=== PATIENT | male | born 1960 | race Caucasian/White ===

== ENCOUNTER 2020-07-12 10:49 | Outpatient (REF) | payer OTHER, SELFPAY | END 2020-07-12 10:50 | disposition home or self-care (01) | LOC: HO.LAB 10:49 | PROVIDERS: PCP Internal Medicine; Visit Provider Internal Medicine | DX: Z13.89 Encounter for screening for other disorder (principal) ==

== ENCOUNTER 2020-07-26 10:37 | Outpatient (REF) | payer OTHER, SELFPAY ==
[2020-07-26 11:38] LABS: MANUAL DIFF FLAG NO
[2020-07-26 11:49] LABS: Basophils Absolute Auto 0.1 X10*3/uL (0.0-0.2); Basophils Percent Auto 1.2 % (0-2); Eosinophils Absolute Auto 0.4 X10*3/uL (0.0-0.4); Eosinophils Percent Auto 7.3 % (0-4); Hematocrit 44.8 % (42-52); Imm Gran Abs Auto 0.01 X10*3/uL (0.00-0.03); Imm Gran Pct Auto 0.2 % (0.0-0.4); Lymphocytes Absolute Auto 1.7 X10*3/uL (1.2-4.9); Lymphocytes Percent Auto 29.7 % (20-40); Mean Corpuscular HGB Conc 33.5 g/dl (31.0-36.0); Mean Corpuscular Hemoglobin 30.3 pg (27.0-33.0); Mean Corpuscular Volume 90.5 fL (80-98); Mean Platelet Volume 10.4 fL (9.4-12.4); Monocytes Absolute Auto 0.5 X10*3/uL (0.1-1.2); Monocytes Percent Auto 8.5 % (2-11); Neutrophils Absolute Auto 3.1 X10*3/uL (2.0-8.3); Neutrophils Percent Auto 53.1 % (45-73); Platelet Count 206 X10*3/uL (160-400); Red Blood Count 4.95 X10*6/uL (4.60-5.80); Red Cell Distribution Width 12.4 % (11.0-16.0); White Blood Count 5.8 X10*3/uL (4.8-10.8)
[2020-07-26 11:53] LABS: Glucose Urine UA NEG (NEG); Leukocyte Esterase Urine NEG (NEG); Nitrite Urine NEG (NEG); PH 7.5 (5.0-8.0); Urine Blood NEG (NEG); Urine Ketones NEG (NEG); Urine Protein TRACE MG/DL (NEG-TRACE)
[2020-07-26 11:54] LABS: Appearance Urine CLEAR; Color Urine YELLOW
[2020-07-26 12:24] LABS: Alanine Aminotransferase 19 U/L (0-40); Albumin Level 4.3 g/dL (3.5-5.0); Alkaline Phosphatase 51 U/L (39-117); Anion Gap 12 (12-20); Aspartate Amino Transferase 17 U/L (5-37); Bilirubin Total 0.8 mg/dL (0.0-1.0); Blood Urea Nitrogen 20 mg/dL (9-16); Calcium 9.1 mg/dL (8.4-10.2); Carbon Dioxide 27 mmol/L (22-29); Chloride 106 mmol/L (96-108); Cholesterol 156 mg/dL; Estimated Glomerular Filt Rate > 60; Glucose Fasting 90 mg/dL (60-99); HDL Cholesterol 39 mg/dL; LDL Cholesterol Calculated 88 mg/dl; Potassium 4.5 mmol/L (3.3-5.1); Sodium 140 mmol/L (135-145); Total Protein 6.5 g/dL (6.5-8.0); Triglycerides 146 mg/dL
[2020-07-26 12:34] LABS: Prostate Specific Antigen Scr 0.97 ng/mL (<0.05-4.0); TSH reflex Free T4 0.99 uIU/mL (0.32-4.0); Vitamin D 25-OH Total 39.7 ng/mL (>30)
== END 2020-07-26 10:38 | disposition home or self-care (01) ==
LOC: HO.LAB 10:37
PROVIDERS: Internal Medicine; PCP Internal Medicine; Visit Provider Internal Medicine
DX: Z00.00 Encounter for general adult medical examination without abnormal findings (principal); K21.9 Gastro-esophageal reflux disease without esophagitis; D72.19 Other eosinophilia; E78.00 Pure hypercholesterolemia, unspecified; R09.89 Other specified symptoms and signs involving the circulatory and respiratory systems; Z20.822 Contact with and (suspected) exposure to COVID-19; E66.9 Obesity, unspecified; J30.9 Allergic rhinitis, unspecified; E55.9 Vitamin D deficiency, unspecified; Z12.5 Encounter for screening for malignant neoplasm of prostate
CPT/HCPCS: 36415; 80053; 80061; 81003; 82306; 84153; 84443; 85025; U0003; U0005

== ENCOUNTER 2020-08-09 12:56 | Outpatient (REF) | payer OTHER, SELFPAY | END 2020-08-09 12:57 | disposition home or self-care (01) | LOC: HO.LAB 12:56 | PROVIDERS: PCP Internal Medicine; Visit Provider Internal Medicine | DX: Z20.822 Contact with and (suspected) exposure to COVID-19 (principal) | CPT/HCPCS: 36415; C9803; U0003; U0005 ==

== ENCOUNTER 2020-11-11 09:48 | Outpatient (REF) | payer OTHER, SELFPAY ==
[2020-11-11 10:10] LABS: MANUAL DIFF FLAG NO
[2020-11-11 10:19] LABS: Basophils Absolute Auto 0.1 X10*3/uL (0.0-0.2); Basophils Percent Auto 1.5 % (0-2); Eosinophils Absolute Auto 0.7 X10*3/uL (0.0-0.4); Hematocrit 45.6 % (42-52); Imm Gran Abs Auto 0.01 X10*3/uL (0.00-0.03); Imm Gran Pct Auto 0.2 % (0.0-0.4); Lymphocytes Absolute Auto 1.3 X10*3/uL (1.2-4.9); Lymphocytes Percent Auto 19.4 % (20-40); Mean Corpuscular HGB Conc 32.9 g/dl (31.0-36.0); Mean Corpuscular Hemoglobin 30.2 pg (27.0-33.0); Mean Corpuscular Volume 91.8 fL (80-98); Mean Platelet Volume 10.3 fL (9.4-12.4); Monocytes Absolute Auto 0.5 X10*3/uL (0.1-1.2); Monocytes Percent Auto 7.6 % (2-11); Neutrophils Percent Auto 60.3 % (45-73); Platelet Count 213 X10*3/uL (160-400); Red Blood Count 4.97 X10*6/uL (4.60-5.80); Red Cell Distribution Width 12.5 % (11.0-16.0); White Blood Count 6.6 X10*3/uL (4.8-10.8)
[2020-11-11 10:42] LABS: Alanine Aminotransferase 30 U/L (0-40); Albumin Level 4.2 g/dL (3.5-5.0); Alkaline Phosphatase 59 U/L (39-117); Anion Gap 11 (12-20); Aspartate Amino Transferase 20 U/L (5-37); Bilirubin Total 0.5 mg/dL (0.0-1.0); Blood Urea Nitrogen 21 mg/dL (9-16); Calcium 9.5 mg/dL (8.4-10.2); Carbon Dioxide 29 mmol/L (22-29); Chloride 106 mmol/L (96-108); Cholesterol 159 mg/dL; Estimated Glomerular Filt Rate > 60; Glucose Fasting 111 mg/dL (60-99); HDL Cholesterol 39 mg/dL; LDL Cholesterol Calculated 98 mg/dl; Potassium 4.6 mmol/L (3.3-5.1); Sodium 141 mmol/L (135-145); Total Protein 6.7 g/dL (6.5-8.0); Triglycerides 110 mg/dL
[2020-11-11 11:03] LABS: TSH reflex Free T4 0.65 uIU/mL (0.32-4.0)
== END 2020-11-11 09:49 | disposition home or self-care (01) ==
LOC: HO.LAB 09:48
PROVIDERS: PCP Internal Medicine; Visit Provider Internal Medicine
DX: D72.19 Other eosinophilia (principal); K21.9 Gastro-esophageal reflux disease without esophagitis; E78.00 Pure hypercholesterolemia, unspecified
CPT/HCPCS: 36415; 80053; 80061; 84443; 85025

== ENCOUNTER 2021-03-11 11:03 | Outpatient (REF) | payer OTHER, SELFPAY ==
[2021-03-11 11:30] LABS: MANUAL DIFF FLAG NO
[2021-03-11 11:37] LABS: Basophils Absolute Auto 0.1 X10*3/uL (0.0-0.2); Eosinophils Absolute Auto 0.4 X10*3/uL (0.0-0.4); Eosinophils Percent Auto 5.7 % (0-4); Hematocrit 44.4 % (42-52); Hemoglobin 15.1 g/dl (14.0-18.0); Imm Gran Abs Auto 0.01 X10*3/uL (0.00-0.03); Imm Gran Pct Auto 0.2 % (0.0-0.4); Lymphocytes Absolute Auto 1.6 X10*3/uL (1.2-4.9); Mean Corpuscular Hemoglobin 30.4 pg (27.0-33.0); Mean Corpuscular Volume 89.5 fL (80-98); Mean Platelet Volume 9.8 fL (9.4-12.4); Monocytes Absolute Auto 0.7 X10*3/uL (0.1-1.2); Monocytes Percent Auto 10.3 % (2-11); Neutrophils Absolute Auto 3.6 X10*3/uL (2.0-8.3); Neutrophils Percent Auto 56.8 % (45-73); Platelet Count 184 X10*3/uL (160-400); Red Blood Count 4.96 X10*6/uL (4.60-5.80); Red Cell Distribution Width 12.2 % (11.0-16.0); White Blood Count 6.3 X10*3/uL (4.8-10.8)
[2021-03-11 13:06] LABS: Alanine Aminotransferase 23 U/L (0-40); Albumin Level 4.3 g/dL (3.5-5.0); Alkaline Phosphatase 59 U/L (39-117); Anion Gap 11 (12-20); Aspartate Amino Transferase 17 U/L (5-37); Bilirubin Total 1.1 mg/dL (0.0-1.0); Blood Urea Nitrogen 16 mg/dL (9-16); Calcium 9.7 mg/dL (8.4-10.2); Carbon Dioxide 26 mmol/L (22-29); Chloride 106 mmol/L (96-108); Cholesterol 164 mg/dL; Estimated Glomerular Filt Rate > 60; Glucose Fasting 104 mg/dL (60-99); HDL Cholesterol 37 mg/dL; LDL Cholesterol Calculated 87 mg/dl; Potassium 4.4 mmol/L (3.3-5.1); Sodium 139 mmol/L (135-145); Total Protein 6.6 g/dL (6.5-8.0); Triglycerides 200 mg/dL
[2021-03-12 07:44] LABS: Estimated Average Glucose 103 mg/dL; Hemoglobin A1c % 5.2 %
== END 2021-03-11 11:04 | disposition home or self-care (01) ==
LOC: HO.LAB 11:03
PROVIDERS: PCP Internal Medicine; Visit Provider Internal Medicine
DX: E78.00 Pure hypercholesterolemia, unspecified (principal); E66.9 Obesity, unspecified; D72.19 Other eosinophilia; K21.9 Gastro-esophageal reflux disease without esophagitis; R73.01 Impaired fasting glucose
CPT/HCPCS: 36415; 80053; 80061; 83036; 84443; 85025

== ENCOUNTER 2021-04-22 09:13 | Outpatient (REF) | payer OTHER, SELFPAY ==
[2021-04-22 09:24] LABS: MANUAL DIFF FLAG NO
[2021-04-22 09:48] LABS: Basophils Absolute Auto 0.1 X10*3/uL (0.0-0.2); Basophils Percent Auto 1.3 % (0-2); Eosinophils Absolute Auto 0.4 X10*3/uL (0.0-0.4); Eosinophils Percent Auto 5.5 % (0-4); Hematocrit 44.3 % (42-52); Hemoglobin 15.1 g/dl (14.0-18.0); Imm Gran Abs Auto 0.02 X10*3/uL (0.00-0.03); Imm Gran Pct Auto 0.3 % (0.0-0.4); Lymphocytes Absolute Auto 1.6 X10*3/uL (1.2-4.9); Lymphocytes Percent Auto 24.7 % (20-40); Mean Corpuscular HGB Conc 34.1 g/dl (31.0-36.0); Mean Corpuscular Hemoglobin 30.9 pg (27.0-33.0); Mean Corpuscular Volume 90.6 fL (80-98); Monocytes Absolute Auto 0.5 X10*3/uL (0.1-1.2); Monocytes Percent Auto 7.8 % (2-11); Neutrophils Absolute Auto 3.9 X10*3/uL (2.0-8.3); Neutrophils Percent Auto 60.4 % (45-73); Platelet Count 209 X10*3/uL (160-400); Red Blood Count 4.89 X10*6/uL (4.60-5.80); Red Cell Distribution Width 12.5 % (11.0-16.0); White Blood Count 6.4 X10*3/uL (4.8-10.8)
[2021-04-22 09:58] LABS: Appearance Urine CLEAR; Color Urine YELLOW; Glucose Urine UA NEG (NEG); Leukocyte Esterase Urine NEG (NEG); Nitrite Urine NEG (NEG); PH 6.5 (5.0-8.0); Urine Blood NEG (NEG); Urine Ketones NEG (NEG); Urine Protein TRACE MG/DL (NEG-TRACE)
[2021-04-22 10:07] LABS: Alanine Aminotransferase 34 U/L (0-40); Albumin Level 4.3 g/dL (3.5-5.0); Alkaline Phosphatase 61 U/L (39-117); Anion Gap 12 (12-20); Aspartate Amino Transferase 24 U/L (5-37); Bilirubin Total 0.8 mg/dL (0.0-1.0); Blood Urea Nitrogen 17 mg/dL (9-16); Calcium 9.6 mg/dL (8.4-10.2); Carbon Dioxide 29 mmol/L (22-29); Chloride 105 mmol/L (96-108); Cholesterol 161 mg/dL; Estimated Glomerular Filt Rate > 60; Glucose Fasting 106 mg/dL (60-99); HDL Cholesterol 37 mg/dL; LDL Cholesterol Calculated 91 mg/dl; Potassium 4.6 mmol/L (3.3-5.1); Sodium 141 mmol/L (135-145); Total Protein 6.8 g/dL (6.5-8.0); Triglycerides 166 mg/dL
[2021-04-22 10:28] LABS: Prostate Specific Antigen 1.13 ng/mL (<0.05-4.0); Vitamin D 25-OH Total 39.1 ng/mL (>30)
== END 2021-04-22 09:14 | disposition home or self-care (01) ==
LOC: HO.LAB 09:13
PROVIDERS: PCP Internal Medicine; Visit Provider Internal Medicine
DX: Z00.00 Encounter for general adult medical examination without abnormal findings (principal); Z12.5 Encounter for screening for malignant neoplasm of prostate; I10 Essential (primary) hypertension; E78.00 Pure hypercholesterolemia, unspecified; E55.9 Vitamin D deficiency, unspecified; N40.0 Benign prostatic hyperplasia without lower urinary tract symptoms
CPT/HCPCS: 36415; 80053; 80061; 81003; 82306; 84153; 84443; 85025

== ENCOUNTER 2021-04-29 10:51 | Outpatient (REF) | payer OTHER, SELFPAY ==
[2021-04-29 11:38] LABS: COVID-19 Test Negative (Negative)
== END 2021-04-29 10:52 | disposition home or self-care (01) ==
LOC: HO.LAB 10:51
PROVIDERS: PCP Internal Medicine; Visit Provider Internal Medicine
DX: Z20.822 Contact with and (suspected) exposure to COVID-19 (principal)
CPT/HCPCS: 36415; 87635; C9803

== ENCOUNTER 2021-06-09 10:21 | Outpatient (REF) | payer OTHER, SELFPAY ==
[2021-06-09 10:56] LABS: COVID-19 Test Negative (Negative); IDNOW Serial# 16C4AD1C
== END 2021-06-09 10:22 | disposition home or self-care (01) ==
LOC: HO.LAB 10:21
PROVIDERS: Visit Provider Internal Medicine
DX: Z20.822 Contact with and (suspected) exposure to COVID-19 (principal)
CPT/HCPCS: 36415; 87635; C9803

== ENCOUNTER 2021-12-28 10:56 | Outpatient (REF) | payer OTHER, SELFPAY ==
[2021-12-28 11:08] LABS: MANUAL DIFF FLAG NO
[2021-12-28 11:56] LABS: Basophils Absolute Auto 0.1 X10*3/uL (0.0-0.2); Basophils Percent Auto 1.1 % (0-2); Eosinophils Absolute Auto 0.4 X10*3/uL (0.0-0.4); Eosinophils Percent Auto 6.7 % (0-4); Hematocrit 45.6 % (42.0-52.0); Hemoglobin 15.4 g/dl (14.0-18.0); Imm Gran Abs Auto 0.01 X10*3/uL (0.00-0.03); Imm Gran Pct Auto 0.2 % (0.0-0.4); Lymphocytes Absolute Auto 1.4 X10*3/uL (1.2-4.9); Lymphocytes Percent Auto 25.3 % (20-40); Mean Corpuscular HGB Conc 33.8 g/dl (31.0-36.0); Mean Corpuscular Hemoglobin 30.2 pg (27.0-33.0); Mean Corpuscular Volume 89.4 fL (80.0-98.0); Mean Platelet Volume 10.2 fL (9.4-12.4); Monocytes Absolute Auto 0.5 X10*3/uL (0.1-1.2); Monocytes Percent Auto 9.1 % (2-11); Neutrophils Absolute Auto 3.2 x10*3/uL (2.0-8.3); Neutrophils Percent Auto 57.6 % (45-73); Platelet Count 220 X10*3/uL (160-400); Red Cell Distribution Width 12.6 % (11.0-16.0); White Blood Count 5.5 X10*3/uL (4.8-10.8)
[2021-12-28 12:06] LABS: Estimated Average Glucose 105 mg/dL; Hemoglobin A1c % 5.3 %
[2021-12-28 12:40] LABS: Prostate Specific Antigen Scr 1.22 ng/mL (<0.05-4.0); TSH reflex Free T4 0.78 uIU/mL (0.32-4.0); Vitamin D 25-OH Total 37.3 ng/mL (>30)
[2021-12-28 13:02] LABS: Alanine Aminotransferase 23 U/L (0-40); Albumin Level 4.3 g/dL (3.5-5.0); Alkaline Phosphatase 56 U/L (39-117); Anion Gap 13 (12-20); Aspartate Amino Transferase 18 U/L (5-37); Bilirubin Total 0.9 mg/dL (0.0-1.0); Blood Urea Nitrogen 20 mg/dL (9-16); Calcium 9.6 mg/dL (8.4-10.2); Carbon Dioxide 26 mmol/L (22-29); Chloride 107 mmol/L (96-108); Cholesterol 163 mg/dL; Estimated Glomerular Filt Rate > 60; Glucose Fasting 103 mg/dL (60-99); HDL Cholesterol 37 mg/dL; LDL Cholesterol Calculated 97 mg/dl; Potassium 4.6 mmol/L (3.3-5.1); Sodium 141 mmol/L (135-145); Total Protein 6.8 g/dL (6.5-8.0); Triglycerides 148 mg/dL
== END 2021-12-28 10:57 | disposition home or self-care (01) ==
LOC: HO.LAB 10:56
PROVIDERS: PCP Internal Medicine; Visit Provider Internal Medicine
DX: Z00.00 Encounter for general adult medical examination without abnormal findings (principal); Z12.5 Encounter for screening for malignant neoplasm of prostate; E55.9 Vitamin D deficiency, unspecified; I10 Essential (primary) hypertension; E78.00 Pure hypercholesterolemia, unspecified; R73.01 Impaired fasting glucose
CPT/HCPCS: 36415; 80053; 80061; 82306; 83036; 84153; 84443; 85025

== ENCOUNTER 2022-05-01 13:01 | Outpatient (REF) | payer OTHER, SELFPAY ==
[2022-05-01 15:02] LABS: Influenza A PCR NEGATIVE (Negative); Influenza B PCR NEGATIVE (Negative); Resp Syncy Virus RNA Qual PCR NEGATIVE (Negative); SARS COV2 PCR INHOUSE NEGATIVE (Negative)
== END 2022-05-01 13:02 | disposition home or self-care (01) ==
LOC: HO.LAB 13:01
PROVIDERS: Visit Provider Emergency Medicine
DX: R68.89 Other general symptoms and signs (principal); Z20.822 Contact with and (suspected) exposure to COVID-19
CPT/HCPCS: 0241U

== ENCOUNTER 2022-05-08 14:48 | Outpatient (AMB) | payer OTHER, SELFPAY ==
--- NOTE | 2022-05-08 14:52 | MHC.PC.OV ---
Vital Signs 05/08/22 14:53 Height 6 ft Weight 241 lb BMI 32.6 BP 128/82 Blood Pressure Location Lt brachial Position Sitting Pulse 69 Pulse Source Pulse Oximeter Temp 97.9 F Temp Source Skin Pulse Oximetry (%) 98 Oxygen Delivery Method Room Air Intake Visit Reasons: follow up Intake Note: Patient is here for a follow up. Articulation Officer Required: No Accompanied by: Self / Same As Patient Allergies Sulfa (Sulfonamide Antibiotics) Adverse Reaction (Severe, Verified 04/02/23 17:33) joint pains, difficulty breathing, dehydration? cefuroxime Adverse Reaction (Intermediate, Verified 04/02/23 17:33) shortness of breath,dehydration clavulanic acid [From AUGMENTIN] Adverse Reaction (Intermediate, Verified 04/02/23 17:33) diarrhea Medication List - Last Reconciled 05/08/22 by Jason Abraham MD atorvastatin 10 mg PO DAILY 90 days bupropion HCl mg PO QAM citalopram 40 mg PO DAILY citalopram 20 mg PO DAILY famotidine 40 mg PO BID L.acidophil-L.plantar-Bifido 7 25 billion cell (up4 Probiotics Adult 50 Plus) caps PO multivitamin 1 tab PO DAILY olanzapine 10 mg PO BEDTIME PRN tadalafil (Cialis) 5 mg PO DAILY PRN 30 days Tobacco use date assessed: 09/05/21 HPI follow up HPI Details Patient comes in today for his follow up visit Is again complaining of some nasal and sinus congestion, mild sore throat, ear discomfort and occasional labored breathing although he does not appear to be SOB or has any significant respiratory or pulmonary symptoms/congestion He denies any fever, headaches or dizziness Denies any chest pains; notes (+) on and off coughing, which is mostly non-productive, but denies any increased SOB He was seen at the walk-in clinic for the same complaints and was sent for COVID testing, which came back negative but was not given any Rx for Abx, which he requested for Feels that his symptoms have since gotten worse and believes that only an antibiotic will clear up his problem No nausea/vomiting, no abdominal pain No change in bowel habits noted Had some labs done a few months ago in December 2021 but no other recent labs done [facility] Medical History Erectile dysfunction Mood disorder Dyslipidemia Impaired fasting glucose Anxiety and depression OCD (obsessive compulsive disorder) Gastritis and duodenitis Oral thrush Obesity (BMI 30-39.9) Depression Vitamin D deficiency GERD without esophagitis Eosinophilia Allergic rhinitis Pure hypercholesterolemia Surgical History History of toe surgery History of esophagogastroduodenoscopy (EGD) History of colonoscopy History of inguinal hernia repair Family History Father No problems noted. Mother Diabetes Hypertension Substance abuse Other Mental health problem Social History Housing: Apartment Alcohol intake: current Alcohol intake frequency: a few times a week Patient Tobacco Use Status: Former Tobacco user e-Cigarette/Vaping Use: Never Used Second Hand Smoke Exposure: Yes service: No Current occupational status: unemployed Cognitive needs: No Hearing needs: No Vision needs: Yes (glasses) Questionnaire PHQ-9 Over the last 2 weeks, how often have you been bothered by any of the following problems? Depression Screening Interpretation: Positive Depression Screening Follow-up: Existing condition and In treatment Source: Developed by Drs. Arsenio Mcdonough, Beverley Nesbitt, Charlie Hodge and colleagues, with an educational cameron from [employer]. Thrive Questionnaire Date Thrive assessed: 09/05/21 Currently or been in a relationship where the following occur: no concerns reported CHRISTINE-7 AMB Questionnaire CHRISTINE-7 Date CHRISTINE - 7 assessed: 09/05/21 Source: Developed by Drs. Arsenio Mcdonough, Charlie Perez and colleagues, with an educational cameron from [employer]. Review of Systems Const Denies chills, Reports fatigue, Denies fever(s) and Denies headache(s) ENT Denies dysphagia, Denies dizziness, Reports otalgia (on and off discomfort in both ears), Denies headache(s), Reports nasal congestion (on and off), Denies neck pain, Denies odynophagia, Denies sinus pain, Reports sinus pressure and Reports sore throat (mild) Card Denies chest pain, Denies palpitations and Denies dyspnea Resp Reports chest congestion (mild), Reports cough (on and off, non-productive) and Denies dyspnea GI Denies abdominal pain, Denies constipation, Denies dysphagia, Denies heartburn, Denies diarrhea, Denies nausea, Denies odynophagia and Denies vomiting Reports erectile dysfunction, Denies dysuria, Denies nocturia and Denies urinary frequency Musc Denies neck pain Skin/Breast Denies rash Neuro Denies dizziness and Denies headache(s) Endo Reports fatigue and Denies palpitations Physical exam (Primary Care) Vital Signs: Last Vital Signs Temp 97.9 F 05/08/22 14:53 Pulse 69 05/08/22 14:53 BP 128/82 05/08/22 14:53 Pulse Ox 98 05/08/22 14:53 Oxygen Delivery Method Room Air 05/08/22 14:53 BMI result Body Mass Index 32.6 Tobacco/Smoking Status: Tobacco use Status Tobacco use date assessed 09/05/21 05/08/22 15:00 Patient Tobacco Use Status Former Tobacco user 05/08/22 15:00 e-Cigarette/Vaping Use Never Used 05/08/22 15:00 Depression Screening Interpretation: Positive Depression Screening Follow-up: Existing condition and In treatment Thrive Assessment: Date of Thrive Assessment Date Thrive assessed 09/05/21 05/08/22 15:00 Currently or been in a relationship where the following occur: no concerns reported Const General: no acute distress and alert HENMT Ears: TM's normal bilaterally and EAC's normal General nose exam: nasal polyps Face and sinus: Yes sinuses nontender Throat: Yes posterior oropharynx normal and Yes tonsils normal (no TP congestion) Neck Neck: Yes no lymphadenopathy and Yes supple Resp Auscultation: clear to auscultation bilaterally, no rales and no wheezes Cardio Rate: regular rate Rhythm: regular rhythm Heart sounds: no murmurs GI Palpation (GI): Soft to palpation and nontender Auscultation: normal bowel sounds Extrem General: Yes no clubbing, cyanosis or edema Results Reviewed Results Reviewed: Laboratory Tests 12/28/21 12/28/21 12/28/21 11:06 11:06 11:06 WBC 5.5 Hgb 15.4 Hct 45.6 Plt Count 220 Sodium 141 Potassium 4.6 Creatinine 1.18 Estimated GFR > 60 Fasting Glucose 103 H Hemoglobin A1c % 5.3 Calcium 9.6 AST 18 ALT 23 Triglycerides 148 Cholesterol 163 LDL Cholesterol, Calc 97 HDL Cholesterol 37 PSA Screen 1.22 25-OH Vitamin D Total 37.3 TSH 0.78 Assessment and Plan Assessment & Plan (1) Pure hypercholesterolemia: Code(s): E78.00 - Pure hypercholesterolemia, unspecified Plan: Results of his labs done back in December 2021 reviewed and discussed with patient; has not had a chance to get any other follow up labs done recently Reinforced low cholesterol diet Continue Atorvastatin 10 mg QD Will recheck his labs in 4 months for follow-up (2) Impaired fasting glucose: Code(s): R73.01 - Impaired fasting glucose Plan: Reinforced low-calorie diet/exercise as tolerated HgbA1c remains normal at 5.3% when checked a few months ago in December 2021 (3) Allergic rhinitis: Code(s): J30.9 - Allergic rhinitis, unspecified Qualifiers: Allergic rhinitis seasonality: unspecified Allergic rhinitis trigger: unspecified Qualified Code(s): J30.9 - Allergic rhinitis, unspecified Plan: Continue Cetirizine 10 mg QD PRN Follow up with ENT as scheduled (4) Eosinophilia: Code(s): D72.19 - Other eosinophilia Plan: (+)? eosinophilia noted consistently on his previous labs (was elevated on his labs in December 2021 as well), which may be related to his allergies Patient is now seeing ENT for further evaluation and management; advised also on consideration of seeing an mass spectrometry specialist in the future if this persists (5) Upper respiratory tract infection: Code(s): J06.9 - Acute upper respiratory infection, unspecified Qualifiers: URI type: unspecified URI Qualified Code(s): J06.9 - Acute upper respiratory infection, unspecified Plan: Will start patient again on Doxycycline 100 mg BID x 7 days He was seen at the walk-in clinic last week for the same complaints but states that he was not given an antibiotic Rx, which he feels would have cleared up his symptoms by now He seems to have what appears to be an OCD tendency or belief that antibiotics is the answer and cure to every sniffles and runny nose, congestion and all other related respiratory symptoms that he seems to keep getting one way or another every month and will try to get his way in obtaining an Abx Rx at all cost I have had numerous discussions with him about this and at this point, it seems pointless to continue arguing/debating this with him as it seems like if he does not get his Abx Rx when he asks for it, he will end up going in to see another provider and get it a few days or a week later (6) GERD without esophagitis: Code(s): K21.9 - Gastro-esophageal reflux disease without esophagitis Plan: Dietary restrictions reinforced Continue Famotidine 40 mg twice a day as needed (7) Vitamin D deficiency: Code(s): E55.9 - Vitamin D deficiency, unspecified Plan: Continue OTC Vitamin-D 3 supplements 1000 units daily (8) Erectile dysfunction: Code(s): N52.9 - Male erectile dysfunction, unspecified Qualifiers: Erectile dysfunction type: unspecified Qualified Code(s): N52.9 - Male erectile dysfunction, unspecified Plan: Continue Cialis 5 mg QD PRN (9) Mood disorder: Code(s): F39 - Unspecified mood [affective] disorder Plan: Appears to also have OCD Continue Citalopram at 60 mg daily, Bupropion XL 300 mg daily in AM and Olanzapine 10 mg daily at bedtime Follow-up with Psychiatry as scheduled (10) Obesity (BMI 30-39.9): Code(s): E66.9 - Obesity, unspecified Plan: Reinforced diet/exercise as tolerated /lose weight Plan To return in 4 months for his annual physical examination Orders: Orders Vitamin D 25-OH Total 4 Months E55.9 - Vitamin D deficiency, unspecified Complete Blood Count Auto Diff 4 Months I10 - Essential (primary) hypertension Comprehensive [place]. Panel Fast 4 Months E78.00 - Pure hypercholesterolemia, unspecified Lipid Panel 4 Months E78.00 - Pure hypercholesterolemia, unspecified TSH reflex Free T4 4 Months E78.00 - Pure hypercholesterolemia, unspecified UA CC w/rflx Micro + Cult 4 Months R30.0 - Dysuria Medications: New doxycycline monohydrate 100 mg PO BID 14 caps 0RF 7 days Coding Level of Care Code Est Pt Level 4 (32223) Diagnoses Pure hypercholesterolemia E78.00 Impaired fasting glucose R73.01 Allergic rhinitis, unspecified seasonality, unspecified trigger J30.9 Allergic rhinitis seasonality: unspecified Allergic rhinitis trigger: unspecified Eosinophilia D72.19 Upper respiratory tract infection, unspecified type J06.9 URI type: unspecified URI GERD without esophagitis K21.9 Vitamin D deficiency E55.9 Erectile dysfunction, unspecified erectile dysfunction type N52.9 Erectile dysfunction type: unspecified Mood disorder F39 Obesity (BMI 30-39.9) E66.9
[2022-05-08 14:53] VITALS: BP 128/82; PULSE 69; TEMP 36.6; O2SAT 98; BMI 32.6
== END 2022-05-08 15:47 | disposition home or self-care (01) ==
LOC: HO.HMGH 14:48
PROVIDERS: PCP Internal Medicine; Visit Provider Internal Medicine
DX: E78.00 Pure hypercholesterolemia, unspecified (principal); R73.01 Impaired fasting glucose; J30.9 Allergic rhinitis, unspecified; F39 Unspecified mood [affective] disorder; D72.19 Other eosinophilia; J06.9 Acute upper respiratory infection, unspecified; K21.9 Gastro-esophageal reflux disease without esophagitis; E55.9 Vitamin D deficiency, unspecified; N52.9 Male erectile dysfunction, unspecified; E66.9 Obesity, unspecified
CPT/HCPCS: 99214

== ENCOUNTER 2022-08-07 11:08 | Outpatient (REF) | payer OTHER, SELFPAY ==
[2022-08-07 12:00] LABS: Influenza A PCR NEGATIVE (Negative); Influenza B PCR NEGATIVE (Negative); Resp Syncy Virus RNA Qual PCR NEGATIVE (Negative); SARS COV2 PCR INHOUSE POSITIVE (Negative)
== END 2022-08-07 11:09 | disposition home or self-care (01) ==
LOC: HO.LNP 11:08
PROVIDERS: Visit Provider Physician Assistant
DX: Z20.822 Contact with and (suspected) exposure to COVID-19 (principal); B34.9 Viral infection, unspecified
CPT/HCPCS: 0241U

== ENCOUNTER 2022-08-30 09:26 | Outpatient (REF) | payer OTHER, SELFPAY ==
[2022-08-30 09:48] LABS: MANUAL DIFF FLAG NO
[2022-08-30 10:04] LABS: Basophils Absolute Auto 0.1 X10*3/uL (0.0-0.2); Basophils Percent Auto 1.3 % (0-2); Eosinophils Absolute Auto 0.4 X10*3/uL (0.0-0.4); Eosinophils Percent Auto 6.3 % (0-4); Hemoglobin 15.3 g/dl (14.0-18.0); Imm Gran Abs Auto 0.02 X10*3/uL (0.00-0.03); Imm Gran Pct Auto 0.3 % (0.0-0.4); Lymphocytes Absolute Auto 1.2 X10*3/uL (1.2-4.9); Lymphocytes Percent Auto 19.6 % (20-40); Mean Corpuscular HGB Conc 34.8 g/dl (31.0-36.0); Mean Corpuscular Hemoglobin 31.1 pg (27.0-33.0); Mean Corpuscular Volume 89.4 fL (80.0-98.0); Mean Platelet Volume 10.5 fL (9.4-12.4); Monocytes Absolute Auto 0.6 X10*3/uL (0.1-1.2); Monocytes Percent Auto 9.6 % (2-11); Neutrophils Absolute Auto 3.8 x10*3/uL (2.0-8.3); Neutrophils Percent Auto 62.9 % (45-73); Platelet Count 187 X10*3/uL (160-400); Red Blood Count 4.92 X10*6/uL (4.60-5.80); Red Cell Distribution Width 12.7 % (11.0-16.0)
[2022-08-30 10:38] LABS: Appearance Urine Clear; Color Urine Yellow; Glucose Urine UA Negative (Negative); Leukocyte Esterase Urine Negative (Negative); Nitrite Urine Negative (Negative); Specific Gravity - Urine 1.015 (1.005-1.025); Urine Blood Negative (Negative); Urine Ketones Negative (Negative); Urine Protein Negative (Neg-Trace)
[2022-08-30 10:46] LABS: Alanine Aminotransferase 22 U/L (0-40); Albumin Level 4.1 g/dL (3.5-5.0); Alkaline Phosphatase 64 U/L (39-117); Anion Gap 12 (12-20); Aspartate Amino Transferase 17 U/L (5-37); Bilirubin Total 1.5 mg/dL (0.0-1.0); Blood Urea Nitrogen 15 mg/dL (9-16); Calcium 9.5 mg/dL (8.4-10.2); Carbon Dioxide 27 mmol/L (22-29); Chloride 108 mmol/L (96-108); Cholesterol 170 mg/dL; Estimated Glomerular Filt Rate > 60; Glucose Fasting 107 mg/dL (60-99); HDL Cholesterol 35 mg/dL; LDL Cholesterol Calculated 101 mg/dl; Potassium 4.6 mmol/L (3.3-5.1); Sodium 142 mmol/L (135-145); Total Protein 6.4 g/dL (6.5-8.0); Triglycerides 171 mg/dL
[2022-08-30 11:05] LABS: TSH reflex Free T4 0.69 uIU/mL (0.32-4.0); Vitamin D 25-OH Total 35.8 ng/mL (>30)
== END 2022-08-30 09:27 | disposition home or self-care (01) ==
LOC: HO.LAB 09:26
PROVIDERS: PCP Internal Medicine; Visit Provider Internal Medicine
DX: E78.00 Pure hypercholesterolemia, unspecified (principal); R30.0 Dysuria; E55.9 Vitamin D deficiency, unspecified; I10 Essential (primary) hypertension
CPT/HCPCS: 36415; 80053; 80061; 81003; 82306; 84443; 85025

== ENCOUNTER 2022-09-04 15:18 | Outpatient (AMB) | payer OTHER, SELFPAY ==
--- NOTE | 2022-09-04 15:31 | A.OFFPC_ITS ---
Vital Signs 09/04/22 15:32 Height 6 ft Weight 240 lb 2 oz BMI 32.5 BP 124/80 Blood Pressure Location Lt brachial Position Sitting Pulse Source Pulse Oximeter Temp Source Skin Oxygen Delivery Method Room Air Intake Visit Reasons: PE Intake Note: Pt is here for PE Internetworking Technician Required: No Accompanied by: Self / Same As Patient Allergies Sulfa (Sulfonamide Antibiotics) Adverse Reaction (Severe, Verified 04/02/23 17:33) joint pains, difficulty breathing, dehydration? cefuroxime Adverse Reaction (Intermediate, Verified 04/02/23 17:33) shortness of breath,dehydration clavulanic acid [From AUGMENTIN] Adverse Reaction (Intermediate, Verified 04/02/23 17:33) diarrhea Medication List - Last Reconciled 09/04/22 by Jason Abraham MD albuterol sulfate 90 mcg/actuation 2 puffs inhalation Q6H PRN atorvastatin 10 mg PO DAILY 90 days bupropion HCl mg PO QAM citalopram 40 mg PO DAILY citalopram 20 mg PO DAILY doxycycline hyclate 100 mg PO BID 10 days famotidine 40 mg PO BID L.acidophil-L.plantar-Bifido 7 25 billion cell (up4 Probiotics Adult 50 Plus) caps PO multivitamin 1 tab PO DAILY olanzapine 10 mg PO BEDTIME PRN tadalafil (Cialis) 5 mg PO DAILY PRN 30 days Tobacco use date assessed: 09/04/22 HPI PE HPI Details Patient comes in today for his annual physical examination He is currently still on Doxycycline that was prescribed from the walk-in clinic last week on 08/28/22 for a recurring sinus infection that he feels is related to his eating some cereal - am not sure how and what kind of logic or reasoning would lead him to think this way but given his propensity for asking for antibiotic prescription almost every month for the most trivial symptoms, it is really not surprising States that his symptoms are improving on his current antibiotic therapy He presently denies any fever sore throat; denies any headaches or dizziness Denies any chest pains, no shortness of breath No nausea /vomiting, no abdominal pain No change in bowel habits noted - states that his previous diarrhea has resolved He denies any acute urinary symptoms Needs a couple of his Rx refilled Had his follow up labs done a few days ago - to discuss his results Patient had his screening colonoscopy last done with Dr. Oreilly on 10/26/2014 - co lonoscopy revealed only mild sigmoid diverticulosis and small internal hemorrhoids and he was recommended to repeat procedure in 10 years (2024) [facility] Medical History Erectile dysfunction Mood disorder Dyslipidemia Impaired fasting glucose Anxiety and depression OCD (obsessive compulsive disorder) Gastritis and duodenitis Oral thrush Obesity (BMI 30-39.9) Depression Vitamin D deficiency GERD without esophagitis Eosinophilia Allergic rhinitis Pure hypercholesterolemia Surgical History History of toe surgery History of esophagogastroduodenoscopy (EGD) History of colonoscopy History of inguinal hernia repair Family History Father No problems noted. Mother Diabetes Hypertension Substance abuse Other Mental health problem Social History Housing: Apartment Alcohol intake: current Alcohol intake frequency: a few times a week Patient Tobacco Use Status: Former Tobacco user e-Cigarette/Vaping Use: Never Used Second Hand Smoke Exposure: Yes service: No Current occupational status: unemployed Cognitive needs: No Hearing needs: No Vision needs: Yes (glasses) Questionnaire PHQ-9 Over the last 2 weeks, how often have you been bothered by any of the following problems? 1. Little interest or pleasure in doing things: nearly every day 2. Feeling down, depressed, or hopeless: nearly every day 3. Trouble falling or staying asleep, or sleeping too much: nearly every day 4. Feeling tired or having little energy: nearly every day 5. Poor appetite or overeating: not at all 6. Feeling bad about yourself - or that you are a failure or have let yourself or your family down: not at all 7. Trouble concentrating on things, such as reading the newspaper or watching television: not at all 8. Moving or speaking so slowly that other people could have noticed. Or the opposite - being so fidgety or restless that you have been moving around a lot more than usual: not at all 9. Thoughts that you would be better off or of hurting yourself in some way: not at all Total score: 12 Depression Screening Interpretation: Positive Depression Screening Follow-up: Existing condition and In treatment 32903 - PHQ-9 Billing: Yes Source: Developed by Drs. Arsenio Mcdonough, Beverley Nesbitt, Charlie Hodge and colleagues, with an educational cameron from [employer]. Thrive Questionnaire Declines Thrive assessment: No Date Thrive assessed: 09/04/22 I am a: Patient What is your living situation today?: I have a steady place to live Within the past 12 months, did the food you bought not last and you didn't have the money to get more?: Never true Within the past 12 months, did you worry whether your food would run out before you got money to buy more?: Never true Do you have trouble paying for medicines?: No Do you have trouble getting transportation to medical appointments?: No Do you have trouble paying your heating and electricity bill?: No Do you have trouble taking care of your child, family member or friend?: No Do you have trouble with day-to-day activities such as bathing, preparing meals, shopping, managing finances, etc.?: No Are you currently unemployed and looking for a job?: No Are you interested in more education?: No Currently or been in a relationship where the following occur: no concerns reported AUDIT C Alcohol Use Questionnaire (AUDIT-C) 1. How often do you have a drink containing alcohol?: Monthly or less 2. How many drinks containing alcohol do you have on a typical day when you are drinking?: 1 or 2 3. How often do you have six or more drinks on one occasion?: Never Total Score: 1 Score Reviewed/Action Taken: Yes CHRISTINE-7 AMB Questionnaire CHRISTINE-7 Date CHRISTINE - 7 assessed: 09/04/22 Feeling nervous, anxious, or on edge: 3 = Nearly every day Not being able to stop or control worryin = Nearly every day Worrying too much about different things: 0 = Not at all Trouble relaxin = Not at all Being so restless that it is hard to sit still: 0 = Not at all Becoming easily annoyed or irritable: 0 = Not at all Feeling afraid as if something awful might happen: 0 = Not at all Total CHRISTINE-7 score (0-4 normal; 5-9 mild; 10-14 moderate; 15-21 severe): 6 Source: Developed by Drs. Arsenio Mcdonough, Beverley Nesbitt, Charlie Hodge and colleagues, with an educational cameron from [employer]. Review of Systems Const Denies anorexia, Denies body aches, Denies chills, Denies fatigue, Denies fever(s), Denies headache(s), Denies malaise and Denies weakness Eyes Denies blurry vision, Denies change in vision, Denies irritation and Denies itchy eyes ENT Denies dysphagia, Denies dizziness, Denies ear discharge, Denies otalgia, Denies headache(s), Reports nasal congestion (improving), Denies neck mass, Denies neck pain, Denies odynophagia, Denies sinus pain, Denies sinus pressure and Denies sore throat Card Denies chest pain, Denies rapid heart rate, Denies irregular heart rhythm, Denies palpitations and Denies dyspnea Resp Denies cough, Denies dyspnea and Denies wheezing GI Denies abdominal pain, Denies bloating, Denies constipation, Denies dysphagia, Denies heartburn, Denies diarrhea, Denies nausea, Denies odynophagia and Denies vomiting Denies hematuria, Denies difficulty urinating, Denies dysuria, Denies urinary frequency, Denies urinary incontinence and Denies urinary urgency Musc Denies back pain, Denies arthralgias, Denies joint swelling, Denies muscle weakness and Denies neck pain Skin/Breast Denies change in pigmentation, Denies lesions, Denies rash and Denies unusual bruising Neuro Denies dizziness, Denies headache(s), Denies paresthesias and Denies weakness Endo Denies fatigue and Denies palpitations Aller/Immun Denies itchy eyes and Denies wheezing Physical exam (Primary Care) Vital Signs: Last Vital Signs BP 124/80 09/04/22 15:32 Oxygen Delivery Method Room Air 09/04/22 15:32 BMI result Body Mass Index 32.5 Tobacco/Smoking Status: Tobacco use Status Tobacco use date assessed 09/04/22 09/04/22 15:33 Patient Tobacco Use Status Former Tobacco user 09/04/22 15:33 e-Cigarette/Vaping Use Never Used 09/04/22 15:33 PHQ-9: PHQ-9 Score PHQ-9: Total score 12 09/04/22 17:13 Depression Screening Interpretation: Positive Depression Screening Follow-up: Existing condition and In treatment Thrive Assessment: Date of Thrive Assessment Date Thrive assessed 09/04/22 09/04/22 15:33 Currently or been in a relationship where the following occur: no concerns reported Const General: no acute distress, alert and awake Orientation/consciousness: patient oriented x3 HENMT Head: Yes normocephalic and Yes atraumatic Ears: external ears normal, TM's normal bilaterally and EAC's normal General nose exam: No nasal discharge present Face and sinus: Yes normal facial exam and Yes sinuses nontender Teeth and gingiva: dentition normal Throat: Yes posterior oropharynx normal and Yes tonsils normal (no TP congestion) Eyes Eyelids: Yes eyelids normal Conjunctivae: conjunctivae normal Pupils: Equal, round and reactive pupils present EOM: EOMs intact bilaterally Neck Neck: Yes no lymphadenopathy and Yes supple Thyroid: Thyroid normal Resp Auscultation: clear to auscultation bilaterally, no rales and no wheezes Cardio Rate: regular rate Rhythm: regular rhythm Heart sounds: no murmurs GI Palpation (GI): Soft to palpation, nontender and No hepatosplenomegaly present Auscultation: normal bowel sounds General: Yes no CVA tenderness Back/Spine/Pelvis Back: no CVA tenderness Thoracic/Lumbar Spine: thoracic and lumbar spine normal to inspection Skin Lesions: no lesions Rashes: no rashes Neuro General: patient oriented x3 Cranial nerves: Yes CN's II-XII intact bilaterally and Yes Equal, round and reactive pupils present Cognition (Neuro): normal cognition Gait exam (Neuro): Normal gait present Extrem General: Yes no clubbing, cyanosis or edema Results Reviewed Results Reviewed: Laboratory Tests 08/30/22 08/30/22 08/30/22 09:41 09:45 09:45 WBC 6.0 Hgb 15.3 Hct 44.0 Plt Count 187 Sodium 142 Potassium 4.6 Creatinine 1.07 Estimated GFR > 60 Fasting Glucose 107 H Calcium 9.5 AST 17 ALT 22 Triglycerides 171 Cholesterol 170 LDL Cholesterol, Calc 101 HDL Cholesterol 35 25-OH Vitamin D Total 35.8 TSH 0.69 Ur Specific [place] 1.015 Urine Protein Negative Urine Glucose (UA) Negative Urine Blood Negative Assessment and Plan Assessment & Plan (1) Annual physical exam: Code(s): Z00.00 - Encounter for general adult medical examination without abnormal findings Plan: Results of his labs done last week reviewed and discussed with patient Patient is up-to-date with his cancer screening - is not due for repeat co lonoscopy until 2024 (2) Pure hypercholesterolemia: Code(s): E78.00 - Pure hypercholesterolemia, unspecified Plan: Reinforced low cholesterol diet Continue Atorvastatin 10 mg QD Will recheck his labs in 4 months for follow-up (3) Impaired fasting glucose: Code(s): R73.01 - Impaired fasting glucose Plan: Reinforced low-calorie diet/exercise as tolerated HgbA1c remains normal at 5.3% when last checked in December 2021 (4) Allergic rhinitis: Code(s): J30.9 - Allergic rhinitis, unspecified Qualifiers: Allergic rhinitis seasonality: unspecified Allergic rhinitis trigger: unspecified Qualified Code(s): J30.9 - Allergic rhinitis, unspecified Plan: Continue Cetirizine 10 mg QD PRN Follow up with ENT as scheduled (5) Eosinophilia: Code(s): D72.19 - Other eosinophilia Plan: (+)? eosinophilia noted consistently on his previous labs (was elevated on his labs in December 2021 as well), which may be related to his allergies Patient is now seeing ENT for further evaluation and management; advised also on consideration of seeing an continuous improvement specialist in the future if this persists (6) GERD without esophagitis: Code(s): K21.9 - Gastro-esophageal reflux disease without esophagitis Plan: Dietary restrictions reinforced Continue Famotidine 40 mg twice a day as needed (7) Vitamin D deficiency: Code(s): E55.9 - Vitamin D deficiency, unspecified Plan: Continue OTC Vitamin-D 3 supplements 1000 units daily (8) Erectile dysfunction: Code(s): N52.9 - Male erectile dysfunction, unspecified Qualifiers: Erectile dysfunction type: unspecified Qualified Code(s): N52.9 - Male erectile dysfunction, unspecified Plan: Continue Cialis 5 mg QD PRN (9) Mood disorder: Code(s): F39 - Unspecified mood [affective] disorder Plan: Appears to also have OCD Continue Citalopram at 60 mg daily, Bupropion XL 300 mg daily in AM and Olanzapine 10 mg daily at bedtime Follow-up with Psychiatry as scheduled (10) Obesity (BMI 30-39.9): Code(s): E66.9 - Obesity, unspecified Plan: Reinforced diet/exercise as tolerated /lose weight Plan Follow up in 4 months Orders: Orders Lipid Panel 4 Months E78.00 - Pure hypercholesterolemia, unspecified Comprehensive [place]. Panel Fast 4 Months E78.00 - Pure hypercholesterolemia, unspecified Medications: Changed From tadalafil administer approximately 30min before sexual activity; do not use more than 1 dose per 24hrs 5 mg PO DAILY 30 days PRN 10 tabs 2RF sexual activity To Cialis (tadalafil) administer approximately 30min before sexual activity; do not use more than 1 dose per 24hrs 5 mg PO DAILY PRN 10 tabs 2RF sexual activity 30 days NS Refilled famotidine 40 mg PO BID 180 tabs 3RF Coding Level of Care Code Est Pt Prev Care 40-64y(16577) Diagnoses Annual physical exam Z00.00 Pure hypercholesterolemia E78.00 Impaired fasting glucose R73.01 Allergic rhinitis, unspecified seasonality, unspecified trigger J30.9 Allergic rhinitis seasonality: unspecified Allergic rhinitis trigger: unspecified Eosinophilia D72.19 GERD without esophagitis K21.9 Vitamin D deficiency E55.9 Erectile dysfunction, unspecified erectile dysfunction type N52.9 Erectile dysfunction type: unspecified Mood disorder F39 Obesity (BMI 30-39.9) E66.9 Coding Diagnoses Annual physical exam Z00.00 Pure hypercholesterolemia E78.00 Impaired fasting glucose R73.01 Allergic rhinitis, unspecified seasonality, unspecified trigger J30.9 Allergic rhinitis seasonality: unspecified Allergic rhinitis trigger: unspecified Eosinophilia D72.19 Upper respiratory tract infection, unspecified type J06.9 URI type: unspecified URI GERD without esophagitis K21.9 Vitamin D deficiency E55.9 Erectile dysfunction, unspecified erectile dysfunction type N52.9 Erectile dysfunction type: unspecified Mood disorder F39 Obesity (BMI 30-39.9) E66.9
[2022-09-04 15:32] VITALS: BP 124/80; BMI 32.5
== END 2022-09-04 16:09 | disposition home or self-care (01) ==
LOC: HO.HMGH 15:18
PROVIDERS: PCP Internal Medicine; Visit Provider Internal Medicine
DX: Z00.00 Encounter for general adult medical examination without abnormal findings (principal); F39 Unspecified mood [affective] disorder; E78.00 Pure hypercholesterolemia, unspecified; R73.01 Impaired fasting glucose; J30.9 Allergic rhinitis, unspecified; D72.19 Other eosinophilia; K21.9 Gastro-esophageal reflux disease without esophagitis; E55.9 Vitamin D deficiency, unspecified; N52.9 Male erectile dysfunction, unspecified; E66.9 Obesity, unspecified
CPT/HCPCS: 99396

== ENCOUNTER 2023-01-04 11:15 | Outpatient (AMB) | payer OTHER, SELFPAY ==
--- NOTE | 2023-01-04 11:19 | AM.OFFWIN_ITS ---
Intake Vital Signs 01/04/23 11:46 Height 6 ft BP 130/74 Blood Pressure Location Rt brachial Position Sitting Pulse 87 Pulse Source Pulse Oximeter Temp 97.6 F Temp Source Temporal Artery Scan Pulse Oximetry (%) 97 Oxygen Delivery Method Room Air Intake Visit Reasons: EP sinus infection still Intake Note: Pt is here to be re evaluated for a sinus infection from last week. Patient Tobacco Use Status: Former Tobacco user Allergies Sulfa (Sulfonamide Antibiotics) Adverse Reaction (Severe, Verified 01/04/23 11:46) joint pains, difficulty breathing, dehydration? cefuroxime Adverse Reaction (Intermediate, Verified 01/04/23 11:46) shortness of breath,dehydration clavulanic acid [From AUGMENTIN] Adverse Reaction (Intermediate, Verified 01/04/23 11:46) diarrhea Do you need a note to return to daycare/school/sports/work: No HPI HPI Comments History of Present Illness Details 62-year-old male presenting to urgent care with complaints sinus pressure, congestion, productive cough, facial pressure, malaise, fatigue times a few weeks worsening.? Patient tells me that all the symptoms have been progressively worsening, he notes that the symptoms are typically worse in the morning and improves slightly throughout the day however remain present.? He tells me that when he leans forward he feels a lot of facial pressure.? Tells me it feels like a sinus infection. tells me he gets them all the time. ? Denies any sick contacts.? Vaccinated against COVID.? Denies chest pain, shortness of breath, nausea, vomiting, abdominal pain, headache, dizziness, vision changes, lower extremity edema, fevers, chills? No history of PE or DVT physical examination Benign Likely chronic sinusitis sinusitis.? Or upper respiratory viral infection.? Unlikely pneumonia or PE. patient was seen here on 12/29/2022 with similar presentation. I suspect this is viral, patient adamant on antibiotics, went over risks versus benefits, he is adamant that he needs an antibiotic, will send a Doxycycline Plan at this time is to discharge patient home with doxycycline. Highly encouraged him to follow up with ears Nose and Throat..? Educated patient on diagnosis and treatment plan, answered all question, patient verbalizes understanding. At this time patient will be discharged home, advised to return with new or worsening symptoms. Educated on worrisome signs and symptoms and when to return. At this time I feel comfortable discharge home. [facility] Medical History Allergic rhinitis Anxiety and depression Depression Dyslipidemia Eosinophilia Erectile dysfunction Gastritis and duodenitis GERD without esophagitis Impaired fasting glucose Mood disorder Obesity (BMI 30-39.9) OCD (obsessive compulsive disorder) Oral thrush Pure hypercholesterolemia Vitamin D deficiency Surgical History History of colonoscopy History of esophagogastroduodenoscopy (EGD) History of inguinal hernia repair History of toe surgery Family History Father No problems noted. Mother Diabetes Hypertension Substance abuse Other Mental health problem Social History Housing: Apartment Alcohol intake: current Alcohol intake frequency: a few times a week Patient Tobacco Use Status: Former Tobacco user e-Cigarette/Vaping Use: Never Used Second Hand Smoke Exposure: Yes service: No Current occupational status: unemployed Cognitive needs: No Hearing needs: No Vision needs: Yes (glasses) Review of Systems Const Details: Constitutional : No Weight loss, No Fever, No Chills, No Fatigue, No Malaise ENT/Mouth : No sore throat, No Rhinorrhea, + sinus congestin Eyes: No Eye Pain, No Swelling, No Redness Cardiovascular : No Chest Pain, No SOB, No Dyspnea on Exertion, No Orthopnea, No Edema, No Palpitations Respiratory : No Cough, No Sputum, No Wheezing Gastrointestinal : No Nausea, No Vomiting, No Diarrhea, No Constipation, No abdominal Pain, No Hematochezia, No Melena Genitourinary : No Dysuria, No Urinary Frequency, No Hematuria, Musculoskeletal : No joint pain, No Myalgias, No Joint Swelling Skin : No Skin Lesions, No rash Neuro : No Weakness, No Numbness, No Dizziness, No Headache Psych : No Anxiety/Panic, No Depression All other systems reviewed and are negative All systems reviewed & are unremarkable except as noted in HPI and below Physical Exam Vital Signs: Last Vital Signs Temp 97.6 F 01/04/23 11:46 Pulse 87 01/04/23 11:46 BP 130/74 01/04/23 11:46 Pulse Ox 97 01/04/23 11:46 Oxygen Delivery Method Room Air 01/04/23 11:46 vss Appearance: Alert.? Oriented X3.? No acute distress.? Head: Normocephalic, atraumatic, no step-offs or deformities Eyes: Pupils equal, round and reactive to light.? ENT: Pharynx normal.??External ears normal, TMs normal bilaterally and EAC's normal. No pain with manipulation of external ears bilaterally. No mastoid tenderness. Neck: Normal inspection.? Neck supple.? CVS: Normal heart rate and rhythm.? Pulses normal.? Respiratory: No respiratory distress.? Breath sounds normal.? Abdomen: Soft and nontender.? Skin: Skin warm and dry.? Normal skin color.? Normal skin turgor.? Extremities: No lower extremity edema.? No calf ttp. 5/5 strength to bilateral upper and lower extremities Back: No midline tenderness, no C-spine tenderness, full range of motion, no CVA tenderness bilaterally Neuro: Oriented X 3.? No motor deficit.? No sensory deficit. CN 2-12 intact Assessment & Plan Assessment & Plan (1) Chronic sinusitis: Code(s): J32.9 - Chronic sinusitis, unspecified Plan Take your medications as prescribed. If you were prescribed antibiotics today, it is important that you take your medication to their entirety, do not skip any doses, do not finish them early. Follow-up with your primary care provider this week. Return to the emergency department with new or worsening symptoms. Such as fevers, chills, chest pain, shortness of breath, nausea, vomiting, dizziness, headache, vision changes, lethargy In case of emergency call 911 Medications: New doxycycline hyclate 100 mg PO BID 14 caps 0RF 7 days Coding Level of Care Code Est Pt Level 3 (30936) Diagnoses Chronic sinusitis J32.9
[2023-01-04 11:46] VITALS: BP 130/74; PULSE 87; TEMP 36.4; O2SAT 97
== END 2023-01-04 12:09 | disposition home or self-care (01) ==
PROVIDERS: PCP Internal Medicine; Visit Provider Physician Assistant
DX: J32.9 Chronic sinusitis, unspecified (principal)
CPT/HCPCS: 99213

== ENCOUNTER 2023-01-10 15:27 | Outpatient (REF) | payer OTHER, SELFPAY | END 2023-01-10 15:28 | disposition home or self-care (01) | LOC: HO.LAB 15:27 | PROVIDERS: PCP Internal Medicine; Visit Provider Internal Medicine | DX: Z13.89 Encounter for screening for other disorder (principal) ==

== ENCOUNTER 2023-01-11 09:56 | Outpatient (REF) | payer OTHER, SELFPAY ==
[2023-01-11 11:15] LABS: Alanine Aminotransferase 20 U/L (0-40); Albumin Level 4.1 g/dL (3.5-5.0); Alkaline Phosphatase 59 U/L (39-117); Anion Gap 11 (12-20); Aspartate Amino Transferase 15 U/L (5-37); Bilirubin Total 0.6 mg/dL (0.0-1.0); Blood Urea Nitrogen 21 mg/dL (9-16); Calcium 9.7 mg/dL (8.4-10.2); Carbon Dioxide 27 mmol/L (22-29); Chloride 105 mmol/L (96-108); Cholesterol 161 mg/dL; Estimated Glomerular Filt Rate > 60; Glucose Fasting 110 mg/dL (60-99); HDL Cholesterol 37 mg/dL; LDL Cholesterol Calculated 98 mg/dl; Potassium 4.3 mmol/L (3.3-5.1); Sodium 139 mmol/L (135-145); Total Protein 6.8 g/dL (6.5-8.0); Triglycerides 131 mg/dL
== END 2023-01-11 09:57 | disposition home or self-care (01) ==
LOC: HO.LAB 09:56
PROVIDERS: PCP Internal Medicine; Visit Provider Internal Medicine
DX: E78.00 Pure hypercholesterolemia, unspecified (principal)
CPT/HCPCS: 36415; 80053; 80061

== ENCOUNTER 2023-02-08 13:09 | Outpatient (AMB) | payer OTHER, SELFPAY ==
--- NOTE | 2023-02-08 14:44 | MHC.OFFWIV ---
Intake Vital Signs 02/08/23 14:47 Height 6 ft Weight 227 lb 8 oz BMI 30.9 BP 128/62 Blood Pressure Location Lt brachial Position Sitting Pulse 58 Pulse Source Pulse Oximeter Temp 97.2 F Temp Source Temporal Artery Scan Pulse Oximetry (%) 98 Oxygen Delivery Method Room Air Intake Visit Reasons: EP, Sinus Congestion Patient Tobacco Use Status: Former Tobacco user Allergies Sulfa (Sulfonamide Antibiotics) Adverse Reaction (Severe, Verified 01/04/23 11:46) joint pains, difficulty breathing, dehydration? cefuroxime Adverse Reaction (Intermediate, Verified 01/04/23 11:46) shortness of breath,dehydration clavulanic acid [From AUGMENTIN] Adverse Reaction (Intermediate, Verified 01/04/23 11:46) diarrhea HPI EP, Sinus Congestion HPI Details Patient is a 62-year-old male who comes to the walk-in clinic complaining of a few days of postnasal drip, runny nose, and mild sore throat, and now developing sinus pressure bilaterally to the cheeks. He is adamant that he get written for doxycycline for this, which apparently is the only thing that has resolved his symptoms in the past. He denies fever or chills, headache or dizziness, malaise or myalgias, dental or jaw pain, vision changes, ear pain, sore throat, difficulty breathing or chest pain, nausea vomiting or diarrhea, or other significant associated symptoms. Reviewed past medical history [facility] Medical History Allergic rhinitis Anxiety and depression Depression Dyslipidemia Eosinophilia Erectile dysfunction Gastritis and duodenitis GERD without esophagitis Impaired fasting glucose Mood disorder Obesity (BMI 30-39.9) OCD (obsessive compulsive disorder) Oral thrush Pure hypercholesterolemia Vitamin D deficiency Surgical History History of colonoscopy History of esophagogastroduodenoscopy (EGD) History of inguinal hernia repair History of toe surgery Family History Father No problems noted. Mother Diabetes Hypertension Substance abuse Other Mental health problem Social History Housing: Apartment Alcohol intake: current Alcohol intake frequency: a few times a week Patient Tobacco Use Status: Former Tobacco user e-Cigarette/Vaping Use: Never Used Second Hand Smoke Exposure: Yes service: No Current occupational status: unemployed Cognitive needs: No Hearing needs: No Vision needs: Yes (glasses) Review of Systems Const All systems reviewed & are unremarkable except as noted in HPI and below Physical Exam Vital Signs: Last Vital Signs Temp 97.2 F 02/08/23 14:47 Pulse 58 02/08/23 14:47 BP 128/62 02/08/23 14:47 Pulse Ox 98 02/08/23 14:47 Oxygen Delivery Method Room Air 02/08/23 14:47 BMI result Body Mass Index 30.9 Const General: cooperative, healthy appearing, comfortable, no acute distress, alert, awake, Physically active, anxious and well groomed; No acute distress, diaphoretic, ill appearing, intoxicated appearing, poor hygiene or tired appearing Nutritional Appearance: average body habitus Orientation/consciousness: patient oriented x3 Limitations: no limitations HEENT Head: Yes normal to inspection, Yes normocephalic and Yes atraumatic Ears: hearing grossly normal bilaterally, external ears normal, TM's normal bilaterally and EAC's normal General nose exam: Normal external nose present, Normal nares present, No nasal polyps present, No nasal discharge present, Abnormal mucous membranes and turbinates present and Abnormal nasal septum present Face and sinus: Yes face symmetric, No ecchymosis, No erythema, No edema, No fluctuance, No maxillary instability and Yes sinus tenderness Mouth: Normal oral and palatal mucosa present, lip normal and tongue normal Throat: Yes abnormal tonsil (mildly erythematous bilaterally), No peritonsillar mass, No uvular edema and No cobblestoning Resp Effort & Inspection: normal respiratory effort, able to speak in complete sentences, no audible wheezes, no cough, no grunting, not labored, no nasal flaring, no retractions and symmetric chest movement Auscultation: clear to auscultation bilaterally, no crackles, no rales, no rhonchi, no wheezes, lung sounds not diminished and No rub present Cardio Palpation: normal PMI Rate: regular rate Rhythm: regular rhythm Heart sounds: S1 normal heart sound present and S2 normal heart sound present Skin Other: Good color, warm and dry Neuro General: patient oriented x3 Psych Appearance: grossly normal Mental Status: mental status grossly normal Speech and movement: Normal speech and movement present Affect: normal affect Attitude: cooperative Thought process: Normal thought process present Insight: Good insight present (Psych) Judgement: Good judgement present (Psych) Assessment & Plan Assessment & Plan (1) Acute viral sinusitis: Code(s): J01.90 - Acute sinusitis, unspecified; B97.89 - Other viral agents as the cause of diseases classified elsewhere Plan: Patient likely with viral sinusitis, no high fever or purulent discharge currently suggestive of bacterial cause, however patient is adamant min about antibiotics being written, so I wrote him for doxycycline per request in case symptoms do not improve with supportive measures. He can also trial fluticasone to help open nasal passages and allow fluid to drain Medications: New doxycycline hyclate 100 mg PO BID 7 days 14 tabs 0RF fluticasone propionate 50 mcg/actuation administer into each nostril 1 spray intranasal DAILY 16 grams 0RF Coding Level of Care Code Est Pt Level 4 (32777) Diagnoses Acute viral sinusitis J01.90; B97.89
[2023-02-08 14:47] VITALS: BP 128/62; PULSE 58; TEMP 36.2; O2SAT 98; BMI 30.9
== END 2023-02-08 15:51 | disposition home or self-care (01) ==
PROVIDERS: PCP Internal Medicine; Visit Provider Physician Assistant Medical
DX: J01.90 Acute sinusitis, unspecified (principal); B97.89 Other viral agents as the cause of diseases classified elsewhere
CPT/HCPCS: 99214

== ENCOUNTER 2023-03-01 09:43 | Outpatient (AMB) | payer OTHER, SELFPAY ==
--- NOTE | 2023-03-01 11:45 | AM.OFFWIN_ITS ---
Intake Vital Signs 03/01/23 11:46 Height 6 ft Weight 228 lb BMI 30.9 BP 112/76 Blood Pressure Location Rt brachial Position Sitting Pulse 66 Pulse Source Pulse Oximeter Pulse Oximetry (%) 99 Oxygen Delivery Method Room Air Intake Visit Reasons: EST/sinus pierre ongoing Intake Note: Patient here for sinus congestion and right ear pain and has been having a lot of mucus in the morning. Patient Tobacco Use Status: Former Tobacco user Allergies Sulfa (Sulfonamide Antibiotics) Adverse Reaction (Severe, Verified 03/01/23 11:47) joint pains, difficulty breathing, dehydration? cefuroxime Adverse Reaction (Intermediate, Verified 03/01/23 11:47) shortness of breath,dehydration clavulanic acid [From AUGMENTIN] Adverse Reaction (Intermediate, Verified 03/01/23 11:47) diarrhea Do you need a note to return to daycare/school/sports/work: No HPI HPI Comments History of Present Illness Details 62-year-old male history of chronic sinusitis presents for concern for URI. Patient has been congestion sinus pressure ear pain denies fever chills states his typical symptoms uses oxygen [facility] Medical History Allergic rhinitis Anxiety and depression Depression Dyslipidemia Eosinophilia Erectile dysfunction Gastritis and duodenitis GERD without esophagitis Impaired fasting glucose Mood disorder Obesity (BMI 30-39.9) OCD (obsessive compulsive disorder) Oral thrush Pure hypercholesterolemia Vitamin D deficiency Surgical History History of colonoscopy History of esophagogastroduodenoscopy (EGD) History of inguinal hernia repair History of toe surgery Family History Father No problems noted. Mother Diabetes Hypertension Substance abuse Other Mental health problem Social History Housing: Apartment Alcohol intake: current Alcohol intake frequency: a few times a week Patient Tobacco Use Status: Former Tobacco user e-Cigarette/Vaping Use: Never Used Second Hand Smoke Exposure: Yes service: No Current occupational status: unemployed Cognitive needs: No Hearing needs: No Vision needs: Yes (glasses) Review of Systems Const All systems reviewed & are unremarkable except as noted in HPI and below Physical Exam Vital Signs: Last Vital Signs Pulse 66 03/01/23 11:46 BP 112/76 03/01/23 11:46 Pulse Ox 99 03/01/23 11:46 Oxygen Delivery Method Room Air 03/01/23 11:46 BMI result Body Mass Index 30.9 Const General: no acute distress and alert HEENT Other: no maxillary tenderness to palpation TMs intact no erythema Assessment & Plan Assessment & Plan (1) Chronic sinusitis: Code(s): J32.9 - Chronic sinusitis, unspecified Qualifiers: Sinusitis location: unspecified location Qualified Code(s): J32.9 - Chronic sinusitis, unspecified Plan patient with chronic sinusitis states doxycycline typically works discussed with patient he should try using Flonase again as well as antihistamines patient declines doxy prescribed Discharge instructions, follow up and treatment are discussed with patient in my usual fashion. Alternatives in treatment are also discussed. The patient will return for worsening symptoms or as needed. Advised that any labs/imaging ordered will be followed up on and contact made if further treatment needed. Counseled that patient's condition may require further evaluation and/or treatment. Symptoms of concern for worsening disorder discussed in detail in my customary manner. Patient does verbalize understanding of the plan, there are no apparent barriers to communication. The patient is given the opportunity to ask questions and have them answered to his/her satisfaction Medications: New doxycycline hyclate 100 mg PO BID 10 caps 0RF Coding Level of Care Code Est Pt Level 3 (30757) Diagnoses Chronic sinusitis, unspecified location J32.9 Sinusitis location: unspecified location
[2023-03-01 11:46] VITALS: BP 112/76; PULSE 66; O2SAT 99; BMI 30.9
== END 2023-03-01 12:10 | disposition home or self-care (01) ==
PROVIDERS: PCP Internal Medicine; Visit Provider Physician Assistant
DX: J32.9 Chronic sinusitis, unspecified (principal)
CPT/HCPCS: 99213

== ENCOUNTER 2023-04-02 17:01 | Outpatient (AMB) | payer OTHER, SELFPAY ==
[2023-04-02 17:04] VITALS: BP 122/68; PULSE 50; O2SAT 99; BMI 30.5
--- NOTE | 2023-04-02 17:04 | MHC.PC.OV ---
Vital Signs 04/02/23 17:04 Height 6 ft Weight 225 lb BMI 30.5 BP 122/68 Blood Pressure Location Lt brachial Position Sitting Pulse 50 Pulse Source Pulse Oximeter Pulse Oximetry (%) 99 Oxygen Delivery Method Room Air Intake Visit Reasons: hyperlipidemia, GERD Feather Baler Required: No Accompanied by: Self / Same As Patient Allergies Sulfa (Sulfonamide Antibiotics) Adverse Reaction (Severe, Verified 04/02/23 17:33) joint pains, difficulty breathing, dehydration? cefuroxime Adverse Reaction (Intermediate, Verified 04/02/23 17:33) shortness of breath,dehydration clavulanic acid [From AUGMENTIN] Adverse Reaction (Intermediate, Verified 04/02/23 17:33) diarrhea Medication List - Last Reconciled 04/02/23 by Jason Abraham MD albuterol sulfate 90 mcg/actuation 2 puffs inhalation Q6H PRN atorvastatin 10 mg PO DAILY 90 days bupropion HCl mg PO QAM Cialis (tadalafil) 5 mg PO DAILY PRN 30 days NS citalopram 40 mg PO DAILY citalopram 20 mg PO DAILY clotrimazole 10 mg mucous membrane TID 10 days doxycycline hyclate 100 mg PO BID 7 days doxycycline hyclate 100 mg PO BID 10 days doxycycline hyclate 100 mg PO BID 7 days doxycycline hyclate 100 mg PO BID famotidine 40 mg PO BID fluticasone propionate 50 mcg/actuation 1 spray intranasal DAILY L.acidophil-L.plantar-Bifido 7 25 billion cell (up4 Probiotics Adult 50 Plus) caps PO multivitamin 1 tab PO DAILY olanzapine 10 mg PO BEDTIME PRN Tobacco use date assessed: 04/02/23 Fall risk assessment: 1 Fall in past year Last assessed Fall Risk: 04/02/23 Dental Screening Dental Screen Date: 04/02/23 Did you have a dental visit in the last 12 months?: Yes Did you have a dental problem in the last 6 months where you did not have access to dental care?: No Was dental information given to patient?: Patient has dentist HPI hyperlipidemia, GERD HPI Details Patient comes in today for his follow up visit States that he feels okay but is again experiencing some respiratory symptoms, specifically ear pain/ache and sinus congestion which he is attributing to a bout of diarrhea that he had from eating some food from his local food pantry??? Is requesting again for some Abx prescription to help clear these symptoms up and states that the Doxycycline Hyclate Rx seems to work the best for him He denies any fever or sore throat Denies any chest pains, no SOB No nausea/vomiting but states that he still has some abdominal bloating and discomfort and some on and off residual diarrhea Had his follow up labs done back in December 2022 but he ended up missing his appointment - states that he got tied up and completely forgot about his appointment ; has had no other follow up labs done since [facility] Medical History Erectile dysfunction Mood disorder Dyslipidemia Impaired fasting glucose Anxiety and depression OCD (obsessive compulsive disorder) Gastritis and duodenitis Oral thrush Obesity (BMI 30-39.9) Depression Vitamin D deficiency GERD without esophagitis Eosinophilia Allergic rhinitis Pure hypercholesterolemia Surgical History History of toe surgery History of esophagogastroduodenoscopy (EGD) History of colonoscopy History of inguinal hernia repair Family History Father No problems noted. Mother Diabetes Hypertension Substance abuse Other Mental health problem Social History Housing: Apartment Alcohol intake: current Alcohol intake frequency: a few times a week Patient Tobacco Use Status: Former Tobacco user e-Cigarette/Vaping Use: Never Used Second Hand Smoke Exposure: Yes service: No Current occupational status: unemployed Cognitive needs: No Hearing needs: No Vision needs: Yes (glasses) Questionnaire PHQ-9 Over the last 2 weeks, how often have you been bothered by any of the following problems? 1. Little interest or pleasure in doing things: nearly every day 2. Feeling down, depressed, or hopeless: nearly every day 3. Trouble falling or staying asleep, or sleeping too much: nearly every day 4. Feeling tired or having little energy: nearly every day 5. Poor appetite or overeating: not at all 6. Feeling bad about yourself - or that you are a failure or have let yourself or your family down: not at all 7. Trouble concentrating on things, such as reading the newspaper or watching television: not at all 8. Moving or speaking so slowly that other people could have noticed. Or the opposite - being so fidgety or restless that you have been moving around a lot more than usual: not at all 9. Thoughts that you would be better off or of hurting yourself in some way: not at all Total score: 12 Depression Screening Interpretation: Positive Depression Screening Follow-up: Existing condition and In treatment Depression Screening Done: Yes 40699 - PHQ-9 Billing: Yes Source: Developed by Drs. Asrenio Mcdonough, Beverley Nesbitt, Charlie Hodge and colleagues, with an educational cameron from [employer] Thrive Questionnaire Date Thrive assessed: 04/02/23 I am a: Patient What is your living situation today?: I have a steady place to live Within the past 12 months, did the food you bought not last and you didn't have the money to get more?: Never true Within the past 12 months, did you worry whether your food would run out before you got money to buy more?: Never true Do you have trouble paying for medicines?: No Do you have trouble getting transportation to medical appointments?: No Do you have trouble paying your heating and electricity bill?: No Do you have trouble taking care of your child, family member or friend?: No Do you have trouble with day-to-day activities such as bathing, preparing meals, shopping, managing finances, etc.?: No Are you currently unemployed and looking for a job?: No Are you interested in more education?: No Please select the resources that you would like help with: None Currently or been in a relationship where the following occur: no concerns reported AUDIT C Alcohol Use Questionnaire (AUDIT-C) 1. How often do you have a drink containing alcohol?: Monthly or less 2. How many drinks containing alcohol do you have on a typical day when you are drinking?: 1 or 2 3. How often do you have six or more drinks on one occasion?: Never Total Score: 1 Score Reviewed/Action Taken: Yes CHRISTINE-7 AMB Questionnaire CHRISTINE-7 Date CHRISTINE - 7 assessed: 04/02/23 Feeling nervous, anxious, or on edge: 3 = Nearly every day Not being able to stop or control worryin = Nearly every day Worrying too much about different things: 0 = Not at all Trouble relaxin = Not at all Being so restless that it is hard to sit still: 0 = Not at all Becoming easily annoyed or irritable: 0 = Not at all Feeling afraid as if something awful might happen: 0 = Not at all Total CHRISTINE-7 score (0-4 normal; 5-9 mild; 10-14 moderate; 15-21 severe): 6 Source: Developed by Drs. Arsenio Mcdonough, Beverley Nesbitt, Charlie Hodge and colleagues, with an educational cameron from [employer] Review of Systems Const Denies chills, Denies fatigue, Denies fever(s) and Denies headache(s) ENT Denies dysphagia, Denies dizziness, Denies ear discharge, Reports otalgia (on and off again in both ears lately), Denies headache(s), Reports nasal congestion (mild), Denies neck pain, Denies odynophagia, Denies sinus pain, Reports sinus pressure (at times) and Denies sore throat Card Denies chest pain, Denies palpitations and Denies dyspnea Resp Denies chest congestion, Reports cough (occasional, non-productive) and Denies dyspnea GI Denies abdominal pain (but still has some residual abdominal discomfort), Denies constipation, Denies dysphagia, Denies heartburn, Reports diarrhea (occasional), Denies nausea, Denies odynophagia and Denies vomiting Denies dysuria, Denies nocturia and Denies urinary frequency Musc Denies neck pain Skin/Breast Denies rash Neuro Denies dizziness and Denies headache(s) Endo Denies fatigue and Denies palpitations Physical exam (Primary Care) Vital Signs: Last Vital Signs Pulse 50 04/02/23 17:04 BP 122/68 04/02/23 17:04 Pulse Ox 99 04/02/23 17:04 Oxygen Delivery Method Room Air 04/02/23 17:04 BMI result Body Mass Index 30.5 Tobacco/Smoking Status: Tobacco use Status Tobacco use date assessed 04/02/23 04/02/23 17:09 Patient Tobacco Use Status Former Tobacco user 04/02/23 17:09 e-Cigarette/Vaping Use Never Used 04/02/23 17:09 PHQ-9: PHQ-9 Score PHQ-9: Total score 12 04/02/23 17:09 Depression Screening Interpretation: Positive Depression Screening Follow-up: Existing condition and In treatment Thrive Assessment: Date of Thrive Assessment Date Thrive assessed 04/02/23 04/02/23 17:09 Currently or been in a relationship where the following occur: no concerns reported Const General: no acute distress and alert HENMT Ears: TM's normal bilaterally and EAC's normal General nose exam: No nasal polyps present Face and sinus: Yes sinuses nontender Throat: Yes posterior oropharynx normal and Yes tonsils normal (no TP congestion) Neck Neck: Yes no lymphadenopathy and Yes supple Resp Auscultation: clear to auscultation bilaterally, no rales and no wheezes Cardio Rate: regular rate Rhythm: regular rhythm Heart sounds: no murmurs GI Palpation (GI): Soft to palpation and nontender Auscultation: normal bowel sounds Skin General skin exam: no rashes or lesions noted Extrem General: Yes no clubbing, cyanosis or edema Results Reviewed Results Reviewed: Laboratory Tests 01/11/23 10:06 Triglycerides 131 Cholesterol 161 LDL Cholesterol, Calc 98 HDL Cholesterol 37 Assessment and Plan Assessment & Plan (1) Pure hypercholesterolemia: Code(s): E78.00 - Pure hypercholesterolemia, unspecified Plan: Advised that his fasting lipids back in December 2022 were okay and have improved slightly from previous Reinforced low cholesterol diet Continue Atorvastatin 10 mg QD Will recheck his labs and fasting lipids in 4 months for follow-up (2) Impaired fasting glucose: Code(s): R73.01 - Impaired fasting glucose Plan: Reinforced low-calorie diet/exercise as tolerated HgbA1c was normal at 5.3% when last checked in December 2021 Will recheck HgbA1c again in a few months for follow up (3) Allergic rhinitis: Code(s): J30.9 - Allergic rhinitis, unspecified Qualifiers: Allergic rhinitis trigger: unspecified Allergic rhinitis seasonality: unspecified Qualified Code(s): J30.9 - Allergic rhinitis, unspecified Plan: Continue Cetirizine 10 mg QD PRN Follow up with ENT as scheduled (4) Eosinophilia: Code(s): D72.19 - Other eosinophilia Plan: (+)? eosinophilia noted consistently on his previous labs (was elevated on his last CBC done in August 2022 as well), which may be related to his allergies Patient is now seeing ENT for further evaluation and management; advised also on consideration of seeing an audit specialist in the future if this persists (5) Vitamin D deficiency: Code(s): E55.9 - Vitamin D deficiency, unspecified Plan: Continue OTC Vitamin-D 3 supplements 1000 units QD (6) GERD without esophagitis: Code(s): K21.9 - Gastro-esophageal reflux disease without esophagitis Plan: Dietary restrictions reinforced Continue Famotidine 40 mg twice a day as needed (7) Upper respiratory tract infection: Code(s): J06.9 - Acute upper respiratory infection, unspecified Qualifiers: URI type: unspecified URI Qualified Code(s): J06.9 - Acute upper respiratory infection, unspecified Plan: Will start patient again on Doxycycline 100 mg BID x 7 days I have repeatedly been advising patient multiple times already of his seemingly unhealthy obsession with taking antibiotics almost on a monthly basis for some perceived respiratory / nasal / throat symptoms even when there does not appear to be any objective basis or findings to support his claims, and there always seems to be something (as strange as they sound) that he claims that tend(s) to trigger his symptoms These are often some type of spoiled, outdated or unusual foods or drinks, including spoiled milk from the grocery, or some food items from the food pantry; he has also blamed 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 - thinks that he may have caught some virus or bacteria that way - and he always feels that he needs to take some antibiotics or his symptoms will not clear up (could be related to his OCD) I have had long discussions with him about this more than a few times already and have cautioned him that taking antibiotics so frequently is not necessarily needed or appropriate and at some point he will run into the problem of antibiotic resistance Based on his visit history, declining to prescribe him any antibiotics during his visit will just lead to him coming back in a few days or so and seeing another provider where he will still end up getting what he wants - an antibiotic prescription He also has had a pattern of continuing alternating antibiotic use followed by the need to take Clotrimazole neha each month once symptoms of oral thrush starts up from his frequent Abx Tx Continuing to discuss this with patient appears to be pointless as he either does not understand or refuses to understand what we are telling him and he will still continue to do what he wants to do (8) Erectile dysfunction: Code(s): N52.9 - Male erectile dysfunction, unspecified Qualifiers: Erectile dysfunction type: unspecified Qualified Code(s): N52.9 - Male erectile dysfunction, unspecified Plan: Continue Cialis 5 mg QD PRN (9) Mood disorder: Code(s): F39 - Unspecified mood [affective] disorder Plan: Appears to also have OCD Continue Citalopram at 60 mg daily, Bupropion XL 300 mg daily in AM and Olanzapine 10 mg daily at bedtime Follow-up with Psychiatry as scheduled (10) Obesity (BMI 30-39.9): Code(s): E66.9 - Obesity, unspecified Plan: Reinforced diet/exercise as tolerated /lose weight Plan Follow up in 4 months Orders: Orders Hemoglobin A1c 4 Months R73.01 - Impaired fasting glucose TSH reflex Free T4 4 Months E78.00 - Pure hypercholesterolemia, unspecified UA CC w/rflx Micro + Cult 4 Months R30.0 - Dysuria Vitamin D 25-OH Total 4 Months E55.9 - Vitamin D deficiency, unspecified Complete Blood Count Auto Diff 4 Months I10 - Essential (primary) hypertension Comprehensive [place]. Panel Fast 4 Months E78.00 - Pure hypercholesterolemia, unspecified Lipid Panel 4 Months E78.00 - Pure hypercholesterolemia, unspecified Medications: Refilled doxycycline hyclate 100 mg PO BID 14 caps 0RF Coding Level of Care Code Est Pt Level 4 (63627) Diagnoses Pure hypercholesterolemia E78.00 Impaired fasting glucose R73.01 Allergic rhinitis, unspecified seasonality, unspecified trigger J30.9 Allergic rhinitis trigger: unspecified Allergic rhinitis seasonality: unspecified Eosinophilia D72.19 Vitamin D deficiency E55.9 GERD without esophagitis K21.9 Upper respiratory tract infection, unspecified type J06.9 URI type: unspecified URI Erectile dysfunction, unspecified erectile dysfunction type N52.9 Erectile dysfunction type: unspecified Mood disorder F39 Obesity (BMI 30-39.9) E66.9
== END 2023-04-02 17:43 | disposition home or self-care (01) ==
PROVIDERS: PCP Internal Medicine; Visit Provider Internal Medicine
DX: E78.00 Pure hypercholesterolemia, unspecified (principal); R73.01 Impaired fasting glucose; J30.9 Allergic rhinitis, unspecified; F39 Unspecified mood [affective] disorder; D72.19 Other eosinophilia; E55.9 Vitamin D deficiency, unspecified; K21.9 Gastro-esophageal reflux disease without esophagitis; J06.9 Acute upper respiratory infection, unspecified; N52.9 Male erectile dysfunction, unspecified; E66.9 Obesity, unspecified
CPT/HCPCS: 99214

== ENCOUNTER 2023-05-03 10:04 | Outpatient (AMB) | payer OTHER, SELFPAY ==
--- NOTE | 2023-05-03 12:13 | AM.OFFWIN_ITS ---
Intake Vital Signs 05/03/23 12:15 Height 6 ft Weight 226 lb BMI 30.6 BP 140/80 H Blood Pressure Location Lt brachial Position Sitting Pulse 63 Pulse Source Pulse Oximeter Temp 98.2 F Temp Source Oral Pulse Oximetry (%) 99 Oxygen Delivery Method Room Air Intake Visit Reasons: EP ear ache sinus congestion Intake Note: Pt is here today c/o bilateral ear ache and sinus congestion plus S/T with cough Patient Tobacco Use Status: Former Tobacco user Allergies Sulfa (Sulfonamide Antibiotics) Adverse Reaction (Severe, Verified 05/03/23 12:15) joint pains, difficulty breathing, dehydration? cefuroxime Adverse Reaction (Intermediate, Verified 05/03/23 12:15) shortness of breath,dehydration clavulanic acid [From AUGMENTIN] Adverse Reaction (Intermediate, Verified 05/03/23 12:15) diarrhea Do you need a note to return to daycare/school/sports/work: No HPI EP ear ache sinus congestion HPI Details 63-year-old male patient presents today with complaints of sore throat and bilateral ear pain for the last week or so. Reports throat pain has been severe, and unresponsive to ibuprofen. Reports friend who was over recently had similar symptoms. Home Covid test was negative. Also reports chronic sinus pressure and congestion, and occasionally productive cough. This patient has an extensive history upper respiratory infection/sinusitis exacerbation, and frequent antibiotic use. This has been discussed at length with multiple [place] providers and his PCP. He has been to ENT, and reports this did not reveal any findings aside from a deviated septum. [facility] Medical History Erectile dysfunction Mood disorder Dyslipidemia Impaired fasting glucose Anxiety and depression OCD (obsessive compulsive disorder) Gastritis and duodenitis Oral thrush Obesity (BMI 30-39.9) Depression Vitamin D deficiency GERD without esophagitis Eosinophilia Allergic rhinitis Pure hypercholesterolemia Surgical History History of toe surgery History of esophagogastroduodenoscopy (EGD) History of colonoscopy History of inguinal hernia repair Family History Father No problems noted. Mother Diabetes Hypertension Substance abuse Other Mental health problem Social History Housing: Apartment Alcohol intake: current Alcohol intake frequency: a few times a week Patient Tobacco Use Status: Former Tobacco user e-Cigarette/Vaping Use: Never Used Second Hand Smoke Exposure: Yes service: No Current occupational status: unemployed Cognitive needs: No Hearing needs: No Vision needs: Yes (glasses) Review of Systems Const All systems reviewed & are unremarkable except as noted in HPI and below Physical Exam Vital Signs: Last Vital Signs Temp 98.2 F 05/03/23 12:15 Pulse 63 05/03/23 12:15 BP 140/80 H 05/03/23 12:15 Pulse Ox 99 05/03/23 12:15 Oxygen Delivery Method Room Air 05/03/23 12:15 BMI result Body Mass Index 30.6 Const General: cooperative and no acute distress HEENT Head: Yes normal to inspection and Yes normocephalic Ears: hearing grossly normal bilaterally, external ears normal, TM normal on the left and unable to visualize TM (cerumen) on the right General nose exam: Normal external nose present Face and sinus: Yes sinus tenderness (maxillary) Mouth: Normal oral and palatal mucosa present Throat: Yes posterior oropharynx abnormal (Erythematous, exudate) Neck Neck: Yes no lymphadenopathy Resp Effort & Inspection: normal respiratory effort Auscultation: clear to auscultation bilaterally Cardio Jugular venous distension: no JVD Palpation: normal PMI Rate: regular rate Rhythm: regular rhythm Skin General skin exam: no rashes or lesions noted Extrem General: Yes capillary refill normal and Yes no clubbing, cyanosis or edema Psych Appearance: grossly normal Mental Status: mental status grossly normal Speech and movement: Normal speech and movement present Results AMB Rapid Strep AMB Rapid Strep Negative Last Edit by Marylu Forrest CMA on 05/03/23 12:32 Assessment & Plan Assessment & Plan (1) Chronic sinusitis: Code(s): J32.9 - Chronic sinusitis, unspecified Qualifiers: Sinusitis location: maxillary Qualified Code(s): J32.0 - Chronic maxillary sinusitis (2) Pharyngitis: Code(s): J02.9 - Acute pharyngitis, unspecified Qualifiers: Pharyngitis/tonsillitis etiology: unspecified etiology Qualified Code(s): J02.9 - Acute pharyngitis, unspecified Plan: Rapid strep was negative and I d/w patient. We discussed the likelihood of symptoms representing a viral illness. He does have odonophagia and some exudate on exam of his posterior oropharynx. I am agreeable to starting him on Pen V however I discussed at length with the patient the risks of frequent and at times, seemingly unnecessary antibiotic use. It appears his PCP also had a long conversation with him about this. I encouraged patient to return if symptoms worsen or do not improve with treatment. He can continue Tylenol/Motrin as needed. Orders: Orders AMB Rapid Strep Screen Today Z13.9 - Encounter for screening, unspecified Medications: New penicillin V potassium 500 mg PO BID 10 days 20 tabs 0RF J02.9 - Acute pharyngitis, unspecified, J32.0 - Chronic maxillary sinusitis Coding Level of Care Code Est Pt Level 3 (15855) Diagnoses Chronic maxillary sinusitis J32.0 Sinusitis location: maxillary Pharyngitis, unspecified etiology J02.9 Pharyngitis/tonsillitis etiology: unspecified etiology
[2023-05-03 12:15] VITALS: BP 140/80; PULSE 63; TEMP 36.8; O2SAT 99; BMI 30.6
== END 2023-05-03 12:52 | disposition home or self-care (01) ==
PROVIDERS: PCP Internal Medicine; Visit Provider Nurse Practitioner Family
DX: J32.0 Chronic maxillary sinusitis (principal); J02.9 Acute pharyngitis, unspecified
CPT/HCPCS: 87880; 99213

== ENCOUNTER 2023-06-07 08:32 | Outpatient (AMB) | payer OTHER, SELFPAY ==
--- NOTE | 2023-06-07 09:00 | AM.OFFWIN_ITS ---
Intake Vital Signs 06/07/23 09:04 Height 6 ft Weight 226 lb BMI 30.6 BP 130/80 Blood Pressure Location Rt brachial Position Sitting Pulse 66 Pulse Source Pulse Oximeter Temp 97.9 F Temp Source Oral Pulse Oximetry (%) 99 Intake Visit Reasons: EP, sinus congestion, ear pain [phone] Intake Note: pt is here for c.o sinus and congestion and ear pain Patient Tobacco Use Status: Former Tobacco user Allergies Sulfa (Sulfonamide Antibiotics) Adverse Reaction (Severe, Verified 05/03/23 12:15) joint pains, difficulty breathing, dehydration? cefuroxime Adverse Reaction (Intermediate, Verified 05/03/23 12:15) shortness of breath,dehydration clavulanic acid [From AUGMENTIN] Adverse Reaction (Intermediate, Verified 05/03/23 12:15) diarrhea Do you need a note to return to daycare/school/sports/work: Yes HPI EP, sinus congestion, ear pain [phone] HPI Details This is a 63-year-old patient who presents today for sick visit. He reports ongoing sinus pressure and nasal congestion, and mild right earache. He reports yellow productive cough, particularly in the morning. Denies any fever or chills. Denies any shortness of breath. Denies any GI symptoms. This patient presents to the walk-in clinic quite frequently with similar complaints and states he does well with antibiotics for his chronic sinusitis. [facility] Medical History Erectile dysfunction Mood disorder Dyslipidemia Impaired fasting glucose Anxiety and depression OCD (obsessive compulsive disorder) Gastritis and duodenitis Oral thrush Obesity (BMI 30-39.9) Depression Vitamin D deficiency GERD without esophagitis Eosinophilia Allergic rhinitis Pure hypercholesterolemia Surgical History History of toe surgery History of esophagogastroduodenoscopy (EGD) History of colonoscopy History of inguinal hernia repair Family History Father No problems noted. Mother Diabetes Hypertension Substance abuse Other Mental health problem Social History Housing: Apartment Alcohol intake: current Alcohol intake frequency: a few times a week Patient Tobacco Use Status: Former Tobacco user e-Cigarette/Vaping Use: Never Used Second Hand Smoke Exposure: Yes service: No Current occupational status: unemployed Cognitive needs: No Hearing needs: No Vision needs: Yes (glasses) Review of Systems Const All systems reviewed & are unremarkable except as noted in HPI and below Physical Exam Vital Signs: Last Vital Signs Temp 97.9 F 06/07/23 09:04 Pulse 66 06/07/23 09:04 BP 130/80 06/07/23 09:04 Pulse Ox 99 06/07/23 09:04 BMI result Body Mass Index 30.6 Const General: cooperative, healthy appearing and no acute distress HEENT Head: Yes normal to inspection Ears: hearing grossly normal bilaterally, external ears normal, TM normal on the left and unable to visualize TM (right - cerumen impaction) Neck Neck: Yes no lymphadenopathy Resp Effort & Inspection: normal respiratory effort and able to speak in complete sentences Auscultation: clear to auscultation bilaterally Cardio Jugular venous distension: no JVD Palpation: normal PMI Rate: regular rate Rhythm: regular rhythm Skin General skin exam: no rashes or lesions noted Extrem General: Yes capillary refill normal and Yes no clubbing, cyanosis or edema Psych Appearance: grossly normal Mental Status: mental status grossly normal Speech and movement: Normal speech and movement present Assessment & Plan Assessment & Plan (1) Chronic sinusitis: Code(s): J32.9 - Chronic sinusitis, unspecified Qualifiers: Sinusitis location: maxillary Qualified Code(s): J32.0 - Chronic maxillary sinusitis Plan: This patient has frequent episodes of sinusitis. He has some mild right ear pain but I cannot visualize TM due to cerumen. I advised he try otc debrox drops to see if this helps. He has done well previously on Doxy hyclate. I discussed at length with the patient the risks of frequent and at times, seemingly unnecessary antibiotic use. It appears his PCP also had a long conversation with him about this as well. He states he has been eating healthier and is starting to have longer stretches between need for treatment. I encouraged patient to return if symptoms worsen or do not improve with treatment. He can continue Tylenol/Motrin as needed. Medications: Refilled doxycycline hyclate 100 mg PO BID 14 caps 0RF 7 days J32.0 - Chronic maxillary sinusitis Coding Level of Care Code Est Pt Level 3 (25673) Diagnoses Chronic maxillary sinusitis J32.0 Sinusitis location: maxillary
[2023-06-07 09:04] VITALS: BP 130/80; PULSE 66; TEMP 36.6; O2SAT 99; BMI 30.6
== END 2023-06-07 09:29 | disposition home or self-care (01) ==
PROVIDERS: PCP Internal Medicine; Visit Provider Nurse Practitioner Family
DX: J32.0 Chronic maxillary sinusitis (principal)
CPT/HCPCS: 99213

== ENCOUNTER 2023-08-02 08:07 | Outpatient (AMB) | payer OTHER, SELFPAY ==
--- NOTE | 2023-08-02 08:19 | MHC.OFFWIV ---
Intake Vital Signs 08/02/23 08:25 Height 6 ft Weight 230 lb BMI 31.2 BP 130/80 Blood Pressure Location Lt brachial Position Sitting Pulse 60 Pulse Source Pulse Oximeter Temp 97.0 F Temp Source Temporal Artery Scan Pulse Oximetry (%) 98 Oxygen Delivery Method Room Air Intake Visit Reasons: EST/sinus pierre and ear ache (lobby masked) Intake Note: pt is here today for sinus congestion and ear ache started 2 weeks ago Patient Tobacco Use Status: Former Tobacco user Allergies Sulfa (Sulfonamide Antibiotics) Adverse Reaction (Severe, Verified 08/02/23 08:20) joint pains, difficulty breathing, dehydration? cefuroxime Adverse Reaction (Intermediate, Verified 08/02/23 08:20) shortness of breath,dehydration clavulanic acid [From AUGMENTIN] Adverse Reaction (Intermediate, Verified 08/02/23 08:20) diarrhea Do you need a note to return to daycare/school/sports/work: No HPI HPI Comments History of Present Illness Details 63 y/o male patient who presents to walk in clinic with c/o sinus pressure and ear pain x 2 weeks. Denies fevers, Has not taken OTC medicine antihistamine cause dry mucous . Reports that he always takes Abx everytime he has Sinus infection. Other providers have been Rxd Doxy for him. He has seen ENT in the past and told him he has chronic Sinusitis. [facility] Medical History Erectile dysfunction Mood disorder Dyslipidemia Impaired fasting glucose Anxiety and depression OCD (obsessive compulsive disorder) Gastritis and duodenitis Oral thrush Obesity (BMI 30-39.9) Depression Vitamin D deficiency GERD without esophagitis Eosinophilia Allergic rhinitis Pure hypercholesterolemia Surgical History History of toe surgery History of esophagogastroduodenoscopy (EGD) History of colonoscopy History of inguinal hernia repair Family History Father No problems noted. Mother Diabetes Hypertension Substance abuse Other Mental health problem Social History Housing: Apartment Alcohol intake: current Alcohol intake frequency: a few times a week Patient Tobacco Use Status: Former Tobacco user e-Cigarette/Vaping Use: Never Used Second Hand Smoke Exposure: Yes service: No Current occupational status: unemployed Cognitive needs: No Hearing needs: No Vision needs: Yes (glasses) Physical Exam Vital Signs: Last Vital Signs Temp 97.0 F 08/02/23 08:25 Pulse 60 08/02/23 08:25 BP 130/80 08/02/23 08:25 Pulse Ox 98 08/02/23 08:25 Oxygen Delivery Method Room Air 08/02/23 08:25 BMI result Body Mass Index 31.2 Const General: comfortable and no acute distress HEENT Head: Yes normocephalic Ears: TM abnormal obstructed by cerumen and unable to visualize TM bilaterally General nose exam: No nasal discharge present and Abnormal mucous membranes and turbinates present boggy and erythematous Face and sinus: Yes sinuses nontender Mouth: Normal oral and palatal mucosa present and moist mucous membranes Throat: Yes posterior oropharynx normal Resp Effort & Inspection: normal respiratory effort Auscultation: clear to auscultation bilaterally Cardio Rate: regular rate Rhythm: regular rhythm Assessment & Plan Assessment & Plan (1) Upper respiratory tract infection: Code(s): J06.9 - Acute upper respiratory infection, unspecified Qualifiers: URI type: unspecified viral URI Qualified Code(s): J06.9 - Acute upper respiratory infection, unspecified Plan: - Viral URI vs Allergies - No signs of Bacterial URI at this point - Rec OTC cough/cold medicine. Coding Level of Care Code Est Pt Level 2 (09185) Diagnoses Viral upper respiratory tract infection J06.9 URI type: unspecified viral URI Time Spent (min) 10
[2023-08-02 08:25] VITALS: BP 130/80; PULSE 60; TEMP 36.1; O2SAT 98; BMI 31.2
== END 2023-08-02 09:45 | disposition home or self-care (01) ==
PROVIDERS: PCP Internal Medicine; Visit Provider Nurse Practitioner Family
DX: J06.9 Acute upper respiratory infection, unspecified (principal)
CPT/HCPCS: 99213

== ENCOUNTER 2023-08-09 09:11 | Outpatient (REF) | payer OTHER, SELFPAY ==
[2023-08-09 09:26] LABS: MANUAL DIFF FLAG NO
[2023-08-09 09:37] LABS: Basophils Absolute Auto 0.1 X10*3/uL (0.0-0.2); Basophils Percent Auto 1.1 % (0-2); Eosinophils Absolute Auto 0.4 X10*3/uL (0.0-0.4); Eosinophils Percent Auto 6.3 % (0-4); Hematocrit 45.5 % (42.0-52.0); Hemoglobin 15.6 g/dl (14.0-18.0); Imm Gran Abs Auto 0.01 X10*3/uL (0.00-0.03); Imm Gran Pct Auto 0.2 % (0.0-0.4); Lymphocytes Absolute Auto 1.7 X10*3/uL (1.2-4.9); Lymphocytes Percent Auto 27.3 % (20-40); Mean Corpuscular HGB Conc 34.3 g/dl (31.0-36.0); Mean Corpuscular Hemoglobin 30.1 pg (27.0-33.0); Mean Corpuscular Volume 87.7 fL (80.0-98.0); Mean Platelet Volume 9.8 fL (9.4-12.4); Monocytes Absolute Auto 0.5 X10*3/uL (0.1-1.2); Monocytes Percent Auto 7.9 % (2-11); Neutrophils Absolute Auto 3.5 x10*3/uL (2.0-8.3); Neutrophils Percent Auto 57.2 % (45-73); Platelet Count 211 X10*3/uL (160-400); Red Blood Count 5.19 X10*6/uL (4.60-5.80); White Blood Count 6.2 X10*3/uL (4.8-10.8)
[2023-08-09 09:41] LABS: Estimated Average Glucose 100 mg/dL; Hemoglobin A1c % 5.1 % (<6.0)
[2023-08-09 10:17] LABS: Alanine Aminotransferase 18 U/L (0-40); Albumin Level 4.2 g/dL (3.5-5.0); Alkaline Phosphatase 60 U/L (39-117); Anion Gap 11 (12-20); Aspartate Amino Transferase 17 U/L (5-37); Bilirubin Total 0.8 mg/dL (0.0-1.0); Blood Urea Nitrogen 18 mg/dL (9-16); Calcium 9.6 mg/dL (8.4-10.2); Carbon Dioxide 25 mmol/L (22-29); Chloride 107 mmol/L (96-108); Cholesterol 184 mg/dL (<200); Estimated Glomerular Filt Rate > 60; Glucose Fasting 95 mg/dL (60-99); HDL Cholesterol 45 mg/dL (>40); LDL Cholesterol Calculated 111 mg/dL (<100); Potassium 3.7 mmol/L (3.3-5.1); Sodium 139 mmol/L (135-145); Total Protein 7.1 g/dL (6.5-8.0); Triglycerides 144 mg/dL (<150)
[2023-08-09 10:35] LABS: TSH reflex Free T4 1.06 uIU/mL (0.32-4.0); Vitamin D 25-OH Total 39.5 ng/mL (>30)
[2023-08-09 11:13] LABS: Appearance Urine Clear; Color Urine Yellow; Glucose Urine UA Negative (Negative); Leukocyte Esterase Urine Negative (Negative); Nitrite Urine Negative (Negative); PH 5.5 (5.0-9.0); UMIC TRIGGER UACC YES; Urine Blood Negative (Negative); Urine Ketones Negative (Negative); Urine Protein 30 (1+) mg/dL (Neg-Trace)
[2023-08-09 11:17] LABS: Bacteria Urine None Seen (None Seen); RBC Urine 0-2 /HPF (0-2); Squamous Epithelial Cell Urine 0-2 /HPF (0-2); WBC Urine 0-5 /HPF (0-5)
== END 2023-08-09 09:12 | disposition home or self-care (01) ==
LOC: HO.LAB 09:11
PROVIDERS: Visit Provider Internal Medicine
DX: R73.01 Impaired fasting glucose (principal); E78.00 Pure hypercholesterolemia, unspecified; E55.9 Vitamin D deficiency, unspecified; I10 Essential (primary) hypertension; R30.0 Dysuria
CPT/HCPCS: 36415; 80053; 80061; 81001; 81003; 82306; 83036; 84443; 85025

== ENCOUNTER 2023-08-14 15:32 | Outpatient (AMB) | payer OTHER, SELFPAY ==
[2023-08-14 15:37] VITALS: BP 138/84; PULSE 58; O2SAT 97; BMI 30.8
--- NOTE | 2023-08-14 15:37 | A.OFFPC_ITS ---
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 cefuroxime Adverse Reaction (Intermediate, Verified 08/14/23 16:28) shortness of breath,dehydration clavulanic acid [From AUGMENTIN] Adverse Reaction (Intermediate, Verified 08/14/23 16:28) diarrhea Medication List - Last Reconciled 08/14/23 by Jason Abraham MD atorvastatin 10 mg PO DAILY 90 days bupropion HCl 300 mg PO QAM Cialis (tadalafil) 5 mg PO DAILY PRN 30 days NS citalopram 40 mg PO DAILY citalopram 20 mg PO DAILY clotrimazole 10 mg mucous membrane TID 10 days famotidine 40 mg PO BID L.acidophil-L.plantar-Bifido 7 25 billion cell (up4 Probiotics Adult 50 Plus) caps PO multivitamin 1 tab PO DAILY olanzapine 10 mg PO BEDTIME PRN Tobacco use date assessed: 08/14/23 Fall risk assessment: No Falls in past year Last assessed Fall Risk: 08/14/23 Dental Screening Dental Screen Date: 08/14/23 Did you have a dental visit in the last 12 months?: Yes Did you have a dental problem in the last 6 months where you did not have access to dental care?: No Was dental information given to patient?: Patient has dentist HPI hyperlipidemia, IFG, mood disorder HPI Details Patient comes in today for his follow up visit States that he feels okay and for the first time in a long time, he has no complaints of any respiratory infections or earaches or any related symptoms States that he has improved his hygiene overall and has been eating healthier lately States that he has also found female companionship and this has helped him a lot overall He denies any headaches or dizziness; denies any fever or sore throat Denies any chest pains, no SOB No nausea/vomiting, no abdominal pain No change in bowel habits noted Had his follow up labs done last week - to discuss his results PFSH Medical History Erectile dysfunction Mood disorder Dyslipidemia Impaired fasting glucose Anxiety and depression OCD (obsessive compulsive disorder) Gastritis and duodenitis Oral thrush Obesity (BMI 30-39.9) Depression Vitamin D deficiency GERD without esophagitis Eosinophilia Allergic rhinitis Pure hypercholesterolemia Surgical History History of toe surgery History of esophagogastroduodenoscopy (EGD) History of colonoscopy History of inguinal hernia repair Family History Father No problems noted. Mother Diabetes Hypertension Substance abuse Other Mental health problem Social History Housing: Apartment Alcohol intake: current Alcohol intake frequency: a few times a week Patient Tobacco Use Status: Former Tobacco user e-Cigarette/Vaping Use: Never Used Second Hand Smoke Exposure: Yes service: No Current occupational status: unemployed Cognitive needs: No Hearing needs: No Vision needs: Yes (glasses) Questionnaire PHQ-9 Over the last 2 weeks, how often have you been bothered by any of the following problems? 1. Little interest or pleasure in doing things: nearly every day 2. Feeling down, depressed, or hopeless: nearly every day 3. Trouble falling or staying asleep, or sleeping too much: nearly every day 4. Feeling tired or having little energy: nearly every day 5. Poor appetite or overeating: not at all 6. Feeling bad about yourself - or that you are a failure or have let yourself or your family down: not at all 7. Trouble concentrating on things, such as reading the newspaper or watching television: not at all 8. Moving or speaking so slowly that other people could have noticed. Or the opposite - being so fidgety or restless that you have been moving around a lot more than usual: not at all 9. Thoughts that you would be better off or of hurting yourself in some way: not at all Total score: 12 Depression Screening Interpretation: Positive Depression Screening Follow-up: Existing condition and In treatment Depression Screening Done: Yes [id number] - PHQ-9 Billing: Yes Source: Developed by Drs. Arsenio Mcdonough, Beverley Nesbitt, Charlie Hodge and colleagues, with an educational cameron from [employer] Thrive Questionnaire Date Thrive assessed: 08/14/23 I am a: Patient What is your living situation today?: I have a steady place to live Within the past 12 months, did the food you bought not last and you didn't have the money to get more?: Never true Within the past 12 months, did you worry whether your food would run out before you got money to buy more?: Never true Do you have trouble paying for medicines?: No Do you have trouble getting transportation to medical appointments?: No Do you have trouble paying your heating and electricity bill?: No Do you have trouble taking care of your child, family member or friend?: No Do you have trouble with day-to-day activities such as bathing, preparing meals, shopping, managing finances, etc.?: No Are you currently unemployed and looking for a job?: No Are you interested in more education?: No Please select the resources that you would like help with: None Currently or been in a relationship where the following occur: no concerns reported THRIVE Score: 0 AUDIT C Alcohol Use Questionnaire (AUDIT-C) 1. How often do you have a drink containing alcohol?: Monthly or less 2. How many drinks containing alcohol do you have on a typical day when you are drinking?: 1 or 2 3. How often do you have six or more drinks on one occasion?: Never Total Score: 1 Score Reviewed/Action Taken: Yes CHRISTINE-7 AMB Questionnaire CHRISTINE-7 Date CHRISTINE - 7 assessed: 08/14/23 Feeling nervous, anxious, or on edge: 3 = Nearly every day Not being able to stop or control worryin = Nearly every day Worrying too much about different things: 0 = Not at all Trouble relaxin = Not at all Being so restless that it is hard to sit still: 0 = Not at all Becoming easily annoyed or irritable: 0 = Not at all Feeling afraid as if something awful might happen: 0 = Not at all Total CHRISTINE-7 score (0-4 normal; 5-9 mild; 10-14 moderate; 15-21 severe): 6 Source: Developed by Drs. Arsenio Mcdonough, Beverley Nesbitt, Charlie Hodge and colleagues, with an educational cameron from [employer]. Review of Systems Const Denies chills, Denies fatigue, Denies fever(s) and Denies headache(s) ENT Denies dysphagia, Denies dizziness, Denies ear discharge, Denies otalgia, Denies headache(s), Denies neck pain, Denies odynophagia, Denies sinus pain and Denies sore throat Card Denies chest pain, Denies palpitations and Denies dyspnea Resp Denies chest congestion, Denies cough and Denies dyspnea GI Denies abdominal pain, Denies constipation, Denies dysphagia, Denies heartburn, Denies diarrhea, Denies nausea, Denies odynophagia and Denies vomiting Reports erectile dysfunction, Denies dysuria, Denies nocturia and Denies urinary frequency Musc Denies back pain and Denies neck pain Skin/Breast Denies rash Neuro Denies dizziness and Denies headache(s) Endo Denies fatigue and Denies palpitations Physical exam (Primary Care) Vital Signs: Last Vital Signs Pulse 58 08/14/23 15:37 BP 138/84 08/14/23 15:37 Pulse Ox 97 08/14/23 15:37 Oxygen Delivery Method Room Air 08/14/23 15:37 BMI result Body Mass Index 30.8 Tobacco/Smoking Status: Tobacco use Status Tobacco use date assessed 08/14/23 08/14/23 15:39 Patient Tobacco Use Status Former Tobacco user 08/14/23 15:39 e-Cigarette/Vaping Use Never Used 08/14/23 15:39 PHQ-9: PHQ-9 Score PHQ-9: Total score 12 08/14/23 15:52 Depression Screening Interpretation: Positive Depression Screening Follow-up: Existing condition and In treatment Thrive Assessment: Date of Thrive Assessment Date Thrive assessed 08/14/23 08/14/23 15:39 Currently or been in a relationship where the following occur: no concerns reported Const General: no acute distress and alert HENMT Ears: TM's normal bilaterally and EAC's normal Throat: Yes posterior oropharynx normal and Yes tonsils normal (no TP congestion) Neck Neck: Yes no lymphadenopathy and Yes supple Thyroid: Thyroid normal Resp Auscultation: clear to auscultation bilaterally, no rales and no wheezes Cardio Rate: regular rate Rhythm: regular rhythm Heart sounds: no murmurs GI Palpation (GI): Soft to palpation and nontender Auscultation: normal bowel sounds Skin General skin exam: no rashes or lesions noted Extrem General: Yes no clubbing, cyanosis or edema Results Reviewed Results Reviewed: Laboratory Tests 08/09/23 08/09/23 08/09/23 09:24 09:25 09:25 WBC 6.2 Hgb 15.6 Hct 45.5 Plt Count 211 Sodium 139 Potassium 3.7 Creatinine 1.18 Estimated GFR > 60 Fasting Glucose 95 Hemoglobin A1c % 5.1 Calcium 9.6 AST 17 ALT 18 Triglycerides 144 Cholesterol 184 LDL Cholesterol, Calc 111 H HDL Cholesterol 45 25-OH Vitamin D Total 39.5 TSH 1.06 Ur Specific [place] 1.020 Urine Protein 30 (1+) H Urine Glucose (UA) Negative Urine Blood Negative Urine Nitrite Negative Ur Leukocyte Esterase Negative Assessment and Plan Assessment & Plan (1) Pure hypercholesterolemia: Code(s): E78.00 - Pure hypercholesterolemia, unspecified Plan: Results of his labs done last week reviewed and discussed with patient - cautioned that his cholesterol levels have increased slightly from previous Reinforced low cholesterol diet Continue Atorvastatin 10 mg QD for now Will recheck his labs and fasting lipids in 4 months for follow-up (2) Impaired fasting glucose: Code(s): R73.01 - Impaired fasting glucose Plan: Reinforced low-calorie diet/exercise as tolerated HgbA1c was normal at 5.1% on his labs done last week; was at 5.1% when previously checked in December 2021 (3) Allergic rhinitis: Code(s): J30.9 - Allergic rhinitis, unspecified Qualifiers: Allergic rhinitis trigger: unspecified Allergic rhinitis seasonality: unspecified Qualified Code(s): J30.9 - Allergic rhinitis, unspecified Plan: Continue Cetirizine 10 mg QD PRN Follow up with ENT as scheduled (4) Eosinophilia: Code(s): D72.19 - Other eosinophilia Plan: He still has (+)? eosinophilia on his recent labs; has been noted to have eosinophilia consistently on his previous labs (was elevated on his last CBC done in August 2022 as well), which may be related to his allergies Patient is now seeing ENT for further evaluation and management; advised also on consideration of seeing an home care specialist in the future if this persists (5) Vitamin D deficiency: Code(s): E55.9 - Vitamin D deficiency, unspecified Plan: Continue OTC Vitamin-D 3 supplements 1000 units QD (6) GERD without esophagitis: Code(s): K21.9 - Gastro-esophageal reflux disease without esophagitis Plan: Dietary restrictions reinforced Continue Famotidine 40 mg twice a day as needed (7) Erectile dysfunction: Code(s): N52.9 - Male erectile dysfunction, unspecified Qualifiers: Erectile dysfunction type: unspecified Qualified Code(s): N52.9 - Male erectile dysfunction, unspecified Plan: Continue Cialis 5 mg QD PRN (8) Mood disorder: Code(s): F39 - Unspecified mood [affective] disorder Plan: Appears to also have OCD in addition to his mood disorder/depression Continue Citalopram at 60 mg daily, Bupropion XL 300 mg daily in AM and Olanzapine 10 mg daily at bedtime Follow-up with Psychiatry as scheduled (9) Obesity (BMI 30-39.9): Code(s): E66.9 - Obesity, unspecified Plan: Reinforced diet/exercise as tolerated /lose weight Plan To return in 4 months for his next annual physical examination Orders: Orders Complete Blood Count Auto Diff 4 Months D64.9 - Anemia, unspecified TSH reflex Free T4 4 Months E78.00 - Pure hypercholesterolemia, unspecified Prostate Specific Antigen 4 Months N40.0 - Benign prostatic hyperplasia without lower urinary tract symptoms Comprehensive [place]. Panel Fast 4 Months E78.00 - Pure hypercholesterolemia, unspecified Lipid Panel 4 Months E78.00 - Pure hypercholesterolemia, unspecified UA CC w/rflx Micro + Cult 4 Months R30.0 - Dysuria Vitamin D 25-OH Total 4 Months E55.9 - Vitamin D deficiency, unspecified Coding Level of Care Code Est Pt Level 4 (03185) Diagnoses Pure hypercholesterolemia E78.00 Impaired fasting glucose R73.01 Allergic rhinitis, unspecified seasonality, unspecified trigger J30.9 Allergic rhinitis trigger: unspecified Allergic rhinitis seasonality: unspecified Eosinophilia D72.19 Vitamin D deficiency E55.9 GERD without esophagitis K21.9 Erectile dysfunction, unspecified erectile dysfunction type N52.9 Erectile dysfunction type: unspecified Mood disorder F39 Obesity (BMI 30-39.9) E66.9
== END 2023-08-14 16:49 | disposition home or self-care (01) ==
LOC: HO.HMGH 15:32
PROVIDERS: PCP Internal Medicine; Visit Provider Internal Medicine
DX: R73.01 Impaired fasting glucose (principal); F39 Unspecified mood [affective] disorder; E66.9 Obesity, unspecified; Z68.30 Body mass index [BMI] 30.0-30.9, adult; E78.00 Pure hypercholesterolemia, unspecified; J30.9 Allergic rhinitis, unspecified; D72.19 Other eosinophilia; E55.9 Vitamin D deficiency, unspecified; K21.9 Gastro-esophageal reflux disease without esophagitis; N52.9 Male erectile dysfunction, unspecified
CPT/HCPCS: 99214

== ENCOUNTER 2023-12-10 10:37 | Outpatient (REF) | payer OTHER, SELFPAY ==
[2023-12-10 10:52] LABS: MANUAL DIFF FLAG NO
[2023-12-10 11:36] LABS: Basophils Absolute Auto 0.1 X10*3/uL (0.0-0.2); Basophils Percent Auto 1.5 % (0-2); Eosinophils Absolute Auto 0.5 X10*3/uL (0.0-0.4); Eosinophils Percent Auto 8.1 % (0-4); Hematocrit 44.4 % (42.0-52.0); Hemoglobin 15.3 g/dl (14.0-18.0); Imm Gran Abs Auto 0.02 X10*3/uL (0.00-0.03); Imm Gran Pct Auto 0.3 % (0.0-0.4); Lymphocytes Absolute Auto 1.5 X10*3/uL (1.2-4.9); Lymphocytes Percent Auto 25.8 % (20-40); Mean Corpuscular HGB Conc 34.5 g/dl (31.0-36.0); Mean Corpuscular Hemoglobin 31.4 pg (27.0-33.0); Mean Corpuscular Volume 91.2 fL (80.0-98.0); Mean Platelet Volume 9.8 fL (9.4-12.4); Monocytes Absolute Auto 0.6 X10*3/uL (0.1-1.2); Monocytes Percent Auto 9.5 % (2-11); Neutrophils Absolute Auto 3.2 x10*3/uL (2.0-8.3); Neutrophils Percent Auto 54.8 % (45-73); Platelet Count 203 X10*3/uL (160-400); Red Blood Count 4.87 X10*6/uL (4.60-5.80); Red Cell Distribution Width 12.5 % (11.0-16.0); White Blood Count 5.9 X10*3/uL (4.8-10.8)
[2023-12-10 12:22] LABS: Alanine Aminotransferase 27 U/L (0-40); Albumin Level 4.1 g/dL (3.5-5.0); Alkaline Phosphatase 62 U/L (39-117); Anion Gap 14 (12-20); Aspartate Amino Transferase 20 U/L (5-37); Bilirubin Total 0.7 mg/dL (0.0-1.0); Blood Urea Nitrogen 17 mg/dL (9-16); Calcium 9.2 mg/dL (8.4-10.2); Carbon Dioxide 26 mmol/L (22-29); Chloride 106 mmol/L (96-108); Cholesterol 202 mg/dL (<200); Estimated Glomerular Filt Rate > 60; Glucose Fasting 97 mg/dL (60-99); HDL Cholesterol 50 mg/dL (>40); LDL Cholesterol Calculated 110 mg/dL (<100); Sodium 142 mmol/L (135-145); Total Protein 6.9 g/dL (6.5-8.0); Triglycerides 213 mg/dL (<150)
[2023-12-10 12:26] LABS: Appearance Urine Clear; Color Urine Yellow; Glucose Urine UA Negative (Negative); Leukocyte Esterase Urine Negative (Negative); Nitrite Urine Negative (Negative); PH 5.5 (5.0-9.0); Specific Gravity - Urine 1.015 (1.005-1.025); Urine Blood Negative (Negative); Urine Ketones Negative (Negative); Urine Protein Negative (Neg-Trace)
[2023-12-10 12:34] LABS: Prostate Specific Antigen 2.25 ng/mL (<0.05-4.0)
[2023-12-10 12:36] LABS: TSH reflex Free T4 1.14 uIU/mL (0.32-4.0); Vitamin D 25-OH Total 37.2 ng/mL (>30)
== END 2023-12-10 10:38 | disposition home or self-care (01) ==
LOC: HO.LAB 10:37
PROVIDERS: PCP Internal Medicine; Visit Provider Internal Medicine
DX: E55.9 Vitamin D deficiency, unspecified (principal); D64.9 Anemia, unspecified; R30.0 Dysuria; E78.00 Pure hypercholesterolemia, unspecified; N40.0 Benign prostatic hyperplasia without lower urinary tract symptoms; Z12.5 Encounter for screening for malignant neoplasm of prostate
CPT/HCPCS: 36415; 80053; 80061; 81003; 82306; 84153; 84443; 85025

== ENCOUNTER 2023-12-12 15:44 | Outpatient (AMB) | payer OTHER, SELFPAY ==
[2023-12-12 15:46] VITALS: BP 136/82; PULSE 74; O2SAT 98; BMI 30.5
--- NOTE | 2023-12-12 15:46 | MHC.PC.OV ---
Vital Signs 12/12/23 15:46 Height 6 ft Weight 225 lb 0.4 oz BMI 30.5 BP 136/82 Blood Pressure Location Lt brachial Position Sitting Pulse 74 Pulse Source Pulse Oximeter Pulse Oximetry (%) 98 Oxygen Delivery Method Room Air Intake Visit Reasons: pe Intake Note: Patient is here today for a physical. Tour Narrator Required: No Allergies Sulfa (Sulfonamide Antibiotics) Adverse Reaction (Severe, Verified 12/12/23 16:13) joint pains, difficulty breathing, dehydration? cefuroxime Adverse Reaction (Intermediate, Verified 12/12/23 16:13) shortness of breath,dehydration clavulanic acid [From AUGMENTIN] Adverse Reaction (Intermediate, Verified 12/12/23 16:13) diarrhea Medication List - Last Reconciled 12/12/23 by Jason Abraham MD atorvastatin 10 mg PO DAILY 90 days bupropion HCl XL 300 mg PO QAM Cialis (tadalafil) 5 mg PO DAILY PRN 30 days NS citalopram 40 mg PO DAILY citalopram 20 mg PO DAILY clotrimazole 10 mg mucous membrane TID 10 days famotidine 40 mg PO BID L.acidophil-L.plantar-Bifido 7 25 billion cell (up4 Probiotics Adult 50 Plus) caps PO multivitamin 1 tab PO DAILY olanzapine 10 mg PO BEDTIME PRN Tobacco use date assessed: 12/12/23 Fall risk assessment: No Falls in past year Last assessed Fall Risk: 12/12/23 Dental Screening Dental Screen Date: 12/12/23 Did you have a dental visit in the last 12 months?: Yes Did you have a dental problem in the last 6 months where you did not have access to dental care?: No Was dental information given to patient?: Patient has dentist HPI pe HPI Details Patient comes in today for his annual physical examination States that he apparently hurt his lower back a few weeks ago after he picked up something heavy - has been experiencing increased pain over his lower back and both hips as they have been bothering (hurting) him since States that his lower back pain has recently subsided and that only his right hip has been bothering him recently Notes that his symptoms feel better with some massage and a hot shower States that he feels okay otherwise He denies any headaches or dizziness Denies any chest pains, no SOB No nausea/vomiting, no abdominal pain No change in bowel habits noted He denies any acute urinary symptoms States that he's had some issues with maintaining erections and with ejaculation lately during sexual intercourse He has taken Cialis 5 mg recently but does not feel that it has helped much Also needs his Famotidine Rx refilled He had his follow up labs done a couple of days ago - to discuss her results He will be due for his repeat colonoscopy next year (2024) with Dr. Oreilly [facility] Medical History Erectile dysfunction Mood disorder Dyslipidemia Impaired fasting glucose Anxiety and depression OCD (obsessive compulsive disorder) Gastritis and duodenitis Oral thrush Obesity (BMI 30-39.9) Depression Vitamin D deficiency GERD without esophagitis Eosinophilia Allergic rhinitis Pure hypercholesterolemia Surgical History History of toe surgery History of esophagogastroduodenoscopy (EGD) History of colonoscopy History of inguinal hernia repair Family History Father No problems noted. Mother Diabetes Hypertension Substance abuse Other Mental health problem Social History Housing: Apartment Alcohol intake: current Alcohol intake frequency: a few times a week Patient Tobacco Use Status: Former Tobacco user e-Cigarette/Vaping Use: Never Used Second Hand Smoke Exposure: Yes service: No Current occupational status: unemployed Cognitive needs: No Hearing needs: No Vision needs: Yes (glasses) Questionnaire PHQ-9 Over the last 2 weeks, how often have you been bothered by any of the following problems? 1. Little interest or pleasure in doing things: not at all 2. Feeling down, depressed, or hopeless: several days 3. Trouble falling or staying asleep, or sleeping too much: not at all 4. Feeling tired or having little energy: not at all 5. Poor appetite or overeating: not at all 6. Feeling bad about yourself - or that you are a failure or have let yourself or your family down: not at all 7. Trouble concentrating on things, such as reading the newspaper or watching television: not at all 8. Moving or speaking so slowly that other people could have noticed. Or the opposite - being so fidgety or restless that you have been moving around a lot more than usual: not at all 9. Thoughts that you would be better off or of hurting yourself in some way: not at all Total score: 1 Depression Screening Interpretation: Positive Depression Screening Follow-up: Existing condition and In treatment Depression Screening Done: Yes 68118 - PHQ-9 Billing: Yes Source: Developed by Drs. Arsenio Mcdonough, Beverley Nesbitt, Charlie Hodge and colleagues, with an educational cameron from [employer]. Thrive Questionnaire Date Thrive assessed: 12/12/23 I am a: Patient What is your living situation today?: I have a steady place to live Within the past 12 months, did the food you bought not last and you didn't have the money to get more?: Never true Within the past 12 months, did you worry whether your food would run out before you got money to buy more?: Never true Do you have trouble paying for medicines?: No Do you have trouble getting transportation to medical appointments?: No Do you have trouble paying your heating and electricity bill?: No Do you have trouble taking care of your child, family member or friend?: No Do you have trouble with day-to-day activities such as bathing, preparing meals, shopping, managing finances, etc.?: No Are you currently unemployed and looking for a job?: No Are you interested in more education?: No Please select the resources that you would like help with: None Currently or been in a relationship where the following occur: no concerns reported THRIVE Score: 0 AUDIT C Alcohol Use Questionnaire (AUDIT-C) 1. How often do you have a drink containing alcohol?: Monthly or less 2. How many drinks containing alcohol do you have on a typical day when you are drinking?: 1 or 2 3. How often do you have six or more drinks on one occasion?: Never Total Score: 1 Score Reviewed/Action Taken: Yes CHRISTINE-7 AMB Questionnaire CHRISTINE-7 Date CHRISTINE - 7 assessed: 12/12/23 (in treatment ) Feeling nervous, anxious, or on edge: 0 = Not at all Not being able to stop or control worryin = Not at all Worrying too much about different things: 0 = Not at all Trouble relaxin = Not at all Being so restless that it is hard to sit still: 0 = Not at all Becoming easily annoyed or irritable: 0 = Not at all Feeling afraid as if something awful might happen: 0 = Not at all Total CHRISTINE-7 score (0-4 normal; 5-9 mild; 10-14 moderate; 15-21 severe): 0 Source: Developed by Drs. Arsenio Mcdonough, Beverley Nesbitt, Charlie Hodge and colleagues, with an educational cameron from [employer]. CHRISTINE-7 Assessment Billing CHRISTINE-7 Assessment Tool: CHRISTINE-7 Assessment 24208 Review of Systems Const Denies chills, Denies fatigue, Denies fever(s), Denies headache(s), Denies malaise and Denies weakness Eyes Denies blurry vision, Denies change in vision, Denies irritation and Denies itchy eyes ENT Denies dysphagia, Denies dizziness, Denies otalgia, Denies headache(s), Denies nasal congestion, Denies neck pain, Denies odynophagia and Denies sore throat Card Denies chest pain, Denies rapid heart rate, Denies irregular heart rhythm, Denies palpitations and Denies dyspnea Resp Denies chest congestion, Denies cough, Denies dyspnea and Denies wheezing GI Denies abdominal pain, Denies bloating, Denies constipation, Denies dysphagia, Denies heartburn, Denies diarrhea, Denies nausea, Denies odynophagia and Denies vomiting Denies hematuria, Denies difficulty urinating, Reports difficulty with ejaculations (see HPI), Reports erectile dysfunction (see HPI), Denies dysuria, Denies nocturia, Denies urinary frequency and Denies urinary urgency Musc Reports back pain (over the lower back), Reports arthralgias (over both hips, especially the right hip), Denies joint swelling, Denies muscle weakness and Denies neck pain Skin/Breast Denies change in pigmentation, Denies lesions, Denies rash and Denies unusual bruising Neuro Denies dizziness, Denies headache(s), Denies paresthesias and Denies weakness Endo Denies fatigue and Denies palpitations Aller/Immun Denies itchy eyes and Denies wheezing Physical exam (Primary Care) Vital Signs: Last Vital Signs Pulse 74 12/12/23 15:46 BP 136/82 12/12/23 15:46 Pulse Ox 98 12/12/23 15:46 Oxygen Delivery Method Room Air 12/12/23 15:46 BMI result Body Mass Index 30.5 Tobacco/Smoking Status: Tobacco use Status Tobacco use date assessed 12/12/23 12/12/23 15:54 Patient Tobacco Use Status Former Tobacco user 12/12/23 15:47 e-Cigarette/Vaping Use Never Used 12/12/23 15:47 PHQ-9: PHQ-9 Score PHQ-9: Total score 1 12/12/23 16:40 Depression Screening Interpretation: Positive Depression Screening Follow-up: Existing condition and In treatment Thrive Assessment: Date of Thrive Assessment Date Thrive assessed 12/12/23 12/12/23 15:47 Currently or been in a relationship where the following occur: no concerns reported Const General: no acute distress, alert and awake Orientation/consciousness: patient oriented x3 HENMT Head: Yes normocephalic and Yes atraumatic Ears: external ears normal, TM's normal bilaterally and EAC's normal General nose exam: No nasal discharge present Face and sinus: Yes normal facial exam and Yes sinuses nontender Teeth and gingiva: dentition normal Throat: Yes posterior oropharynx normal and Yes tonsils normal (no TP congestion) Eyes Eyelids: Yes eyelids normal Conjunctivae: conjunctivae normal Pupils: Equal, round and reactive pupils present EOM: EOMs intact bilaterally Neck Neck: Yes no lymphadenopathy and Yes supple Thyroid: Thyroid normal Resp Auscultation: clear to auscultation bilaterally, no rales and no wheezes Cardio Rate: regular rate Rhythm: regular rhythm Heart sounds: no murmurs GI Palpation (GI): Soft to palpation, nontender and No hepatosplenomegaly present Auscultation: normal bowel sounds General: Yes no CVA tenderness Back/Spine/Pelvis Back: no CVA tenderness Thoracic/Lumbar Spine: lumbar spinal tenderness (mild) Skin Lesions: no lesions Rashes: no rashes Neuro General: patient oriented x3, moves all extremities, no focal motor deficits and CN's II-XI intact bilaterally Cranial nerves: Yes Equal, round and reactive pupils present Cognition (Neuro): normal cognition Gait exam (Neuro): Normal gait present Extrem General: Yes no clubbing, cyanosis or edema Right lower extremity: hip/thigh Details: tenderness Location: of the hip Location: posterolaterally Left lower extremity: hip/thigh Details: tenderness Location: of the hip Results Reviewed Results Reviewed: Laboratory Tests 12/10/23 12/10/23 10:48 10:51 WBC 5.9 Hgb 15.3 Hct 44.4 Plt Count 203 Sodium 142 Potassium 4.0 Creatinine 1.11 Estimated GFR > 60 Fasting Glucose 97 Calcium 9.2 AST 20 ALT 27 Triglycerides 213 H Cholesterol 202 H LDL Cholesterol, Calc 110 H HDL Cholesterol 50 Prostate Specific Ag 2.25 25-OH Vitamin D Total 37.2 TSH 1.14 Ur Specific [place] 1.015 Urine Protein Negative Urine Glucose (UA) Negative Urine Blood Negative Urine Nitrite Negative Ur Leukocyte Esterase Negative Assessment and Plan Assessment & Plan (1) Annual physical exam: Code(s): Z00.00 - Encounter for general adult medical examination without abnormal findings Plan: Results of his labs done a couple of days ago reviewed and discussed with patient He is up-to-date with his colon cancer screening - will be due for repeat colonoscopy next year (2024) - 10 year recall (2) Pure hypercholesterolemia: Code(s): E78.00 - Pure hypercholesterolemia, unspecified Plan: Patient is cautioned that his cholesterol levels, especially his serum TG, have increased from previous - triglycerides are now over 200 mg/dl Reinforced low cholesterol diet Continue Atorvastatin 10 mg QD for now Will recheck his labs and fasting lipids in 4 months for follow-up (3) Impaired fasting glucose: Code(s): R73.01 - Impaired fasting glucose Plan: Reinforced low-calorie diet/exercise as tolerated HgbA1c was normal at 5.1% when previously checked; FBS was normal at 97 mg/dl on his recent labs (4) Allergic rhinitis: Code(s): J30.9 - Allergic rhinitis, unspecified Qualifiers: Allergic rhinitis seasonality: unspecified Allergic rhinitis trigger: unspecified Qualified Code(s): J30.9 - Allergic rhinitis, unspecified Plan: Continue Cetirizine 10 mg QD PRN Follow up with ENT as scheduled (5) Eosinophilia: Code(s): D72.19 - Other eosinophilia Plan: He still has (+)? eosinophilia on his recent labs; he has been noted to have eosinophilia consistently on his previous labs - may be related to his allergies Patient is now seeing ENT for further evaluation and management; advised also on consideration of seeing an computer technical specialist in the future if this persists (6) Vitamin D deficiency: Code(s): E55.9 - Vitamin D deficiency, unspecified Plan: Continue OTC Vitamin-D 3 supplements 1000 units QD (7) GERD without esophagitis: Code(s): K21.9 - Gastro-esophageal reflux disease without esophagitis Plan: Dietary restrictions reinforced Continue Famotidine 40 mg twice a day as needed (8) Erectile dysfunction: Code(s): N52.9 - Male erectile dysfunction, unspecified Qualifiers: Erectile dysfunction type: unspecified Qualified Code(s): N52.9 - Male erectile dysfunction, unspecified Plan: Per request, will try increasing his Cialis from 5 mg to 10 mg QD PRN (9) Hip pain: Code(s): M25.559 - Pain in unspecified hip Qualifiers: Laterality: right Qualified Code(s): M25.551 - Pain in right hip Plan: Will send patient for right hip x-rays ANNA for further evaluation of his persistent right hip pain and discomfort (10) Low back pain: Code(s): M54.50 - Low back pain, unspecified Qualifiers: Chronicity: acute Back pain laterality: right Sciatica presence: without sciatica Qualified Code(s): M54.50 - Low back pain, unspecified Plan: Will send him as well for lumbar spine x-rays for further evaluation Reinforced activity and weight-lifting restrictions (11) Mood disorder: Code(s): F39 - Unspecified mood [affective] disorder Plan: Patient appears to also have OCD in addition to his mood disorder/depression Continue Citalopram at 60 mg daily, Bupropion XL 300 mg daily in AM and Olanzapine 10 mg daily at bedtime Follow-up with Psychiatry as scheduled (12) Obesity (BMI 30-39.9): Code(s): E66.9 - Obesity, unspecified Plan: Reinforced diet/exercise as tolerated /lose weight Plan Follow up in 4 months Orders: Orders Complete Blood Count Auto Diff 4 Months D64.9 - Anemia, unspecified Comprehensive [place]. Panel Fast 4 Months E78.00 - Pure hypercholesterolemia, unspecified TSH reflex Free T4 4 Months E78.00 - Pure hypercholesterolemia, unspecified UA CC w/rflx Micro + Cult 4 Months R30.0 - Dysuria XR hips ELEANOR min 3V // M25.559 - Pain in unspecified hip XR lumbar spine 2-3V 12/12/23 M54.50 - Low back pain, unspecified Lipid Panel 4 Months E78.00 - Pure hypercholesterolemia, unspecified Vitamin D 25-OH Total 4 Months E55.9 - Vitamin D deficiency, unspecified Medications: Changed From Cialis (tadalafil) administer approximately 30min before sexual activity; do not use more than 1 dose per 24hrs 5 mg PO DAILY 30 days PRN 10 tabs 2RF sexual activity NS To tadalafil take approximately 30 min before sexual activity; do not use more than 1 dose per 24hrs 10 mg PO DAILY PRN 20 tabs 2RF sexual activity Refilled famotidine 40 mg PO BID 180 tabs 3RF Coding Level of Care Code Est Pt Prev Care 40-64y(78809) Diagnoses Annual physical exam Z00.00 Pure hypercholesterolemia E78.00 Impaired fasting glucose R73.01 Allergic rhinitis, unspecified seasonality, unspecified trigger J30.9 Allergic rhinitis seasonality: unspecified Allergic rhinitis trigger: unspecified Eosinophilia D72.19 Vitamin D deficiency E55.9 GERD without esophagitis K21.9 Erectile dysfunction, unspecified erectile dysfunction type N52.9 Erectile dysfunction type: unspecified Pain of right hip M25.551 Laterality: right Acute right-sided low back pain without sciatica M54.50 Chronicity: acute Back pain laterality: right Sciatica presence: without sciatica Mood disorder F39 Obesity (BMI 30-39.9) E66.9 Additional Codes CHRISTINE-7 Assessment Billing - CHRISTINE-7 Assessment Tool: CHRISTINE-7 Assessment [id number] ([id number])
== END 2023-12-12 16:47 | disposition home or self-care (01) ==
PROVIDERS: PCP Internal Medicine; Visit Provider Internal Medicine
DX: Z00.00 Encounter for general adult medical examination without abnormal findings (principal); F39 Unspecified mood [affective] disorder; E66.9 Obesity, unspecified; Z68.30 Body mass index [BMI] 30.0-30.9, adult; E78.00 Pure hypercholesterolemia, unspecified; R73.01 Impaired fasting glucose; J30.9 Allergic rhinitis, unspecified; D72.19 Other eosinophilia; E55.9 Vitamin D deficiency, unspecified; K21.9 Gastro-esophageal reflux disease without esophagitis; N52.9 Male erectile dysfunction, unspecified; M25.551 Pain in right hip; M54.50 Low back pain, unspecified
CPT/HCPCS: 99396

== ENCOUNTER 2024-04-16 12:27 | Outpatient (REF) | payer OTHER, SELFPAY ==
[2024-04-16 13:37] LABS: MANUAL DIFF FLAG NO
[2024-04-16 13:56] LABS: Appearance Urine Clear; Color Urine Yellow; Glucose Urine UA Negative (Negative); Leukocyte Esterase Urine Negative (Negative); Nitrite Urine Negative (Negative); Specific Gravity - Urine 1.015 (1.005-1.025); UMIC TRIGGER UACC YES; Urine Blood Negative (Negative); Urine Ketones Negative (Negative); Urine Protein 30 (1+) mg/dL (Neg-Trace)
[2024-04-16 13:58] LABS: Bacteria Urine None Seen (None Seen); RBC Urine 0-2 /HPF (0-2); Squamous Epithelial Cell Urine 0-2 /HPF (0-2); WBC Urine 0-5 /HPF (0-5)
[2024-04-16 14:11] LABS: Basophils Absolute Auto 0.1 X10*3/uL (0.0-0.2); Basophils Percent Auto 1.7 % (0-2); Eosinophils Absolute Auto 0.5 X10*3/uL (0.0-0.4); Hematocrit 43.9 % (42.0-52.0); Hemoglobin 15.6 g/dl (14.0-18.0); Imm Gran Abs Auto 0.02 X10*3/uL (0.00-0.03); Imm Gran Pct Auto 0.3 % (0.0-0.4); Lymphocytes Absolute Auto 1.1 X10*3/uL (1.2-4.9); Lymphocytes Percent Auto 18.2 % (20-40); Mean Corpuscular HGB Conc 35.5 g/dl (31.0-36.0); Mean Corpuscular Hemoglobin 31.7 pg (27.0-33.0); Mean Corpuscular Volume 89.2 fL (80.0-98.0); Monocytes Absolute Auto 0.5 X10*3/uL (0.1-1.2); Monocytes Percent Auto 8.2 % (2-11); Neutrophils Absolute Auto 3.7 x10*3/uL (2.0-8.3); Neutrophils Percent Auto 63.6 % (45-73); Platelet Count 193 X10*3/uL (160-400); Red Blood Count 4.92 X10*6/uL (4.60-5.80); White Blood Count 5.9 X10*3/uL (4.8-10.8)
[2024-04-16 14:31] LABS: Alanine Aminotransferase 29 U/L (0-40); Albumin Level 4.3 g/dL (3.5-5.0); Alkaline Phosphatase 80 U/L (39-117); Anion Gap 11 (12-20); Aspartate Amino Transferase 30 U/L (5-37); Bilirubin Total 1.3 mg/dL (0.0-1.0); Blood Urea Nitrogen 16 mg/dL (9-16); Calcium 9.9 mg/dL (8.4-10.2); Carbon Dioxide 24 mmol/L (22-29); Chloride 110 mmol/L (96-108); Cholesterol 202 mg/dL (<200); Estimated Glomerular Filt Rate > 60; Glucose Fasting 96 mg/dL (60-99); HDL Cholesterol 51 mg/dL (>40); LDL Cholesterol Calculated 98 mg/dL (<100); Potassium 4.3 mmol/L (3.3-5.1); Sodium 141 mmol/L (135-145); Total Protein 7.2 g/dL (6.5-8.0); Triglycerides 266 mg/dL (<150)
[2024-04-16 14:47] LABS: TSH reflex Free T4 0.71 uIU/mL (0.32-4.0); Vitamin D 25-OH Total 40.5 ng/mL (>30)
== END 2024-04-16 12:28 | disposition home or self-care (01) ==
LOC: HO.LAB 12:27
PROVIDERS: PCP Internal Medicine; Visit Provider Internal Medicine
DX: E78.00 Pure hypercholesterolemia, unspecified (principal); R73.01 Impaired fasting glucose; J30.9 Allergic rhinitis, unspecified; D72.19 Other eosinophilia; E55.9 Vitamin D deficiency, unspecified; K21.9 Gastro-esophageal reflux disease without esophagitis; N52.9 Male erectile dysfunction, unspecified; F39 Unspecified mood [affective] disorder; E66.9 Obesity, unspecified; Z68.30 Body mass index [BMI] 30.0-30.9, adult; D64.9 Anemia, unspecified; Z79.899 Other long term (current) drug therapy
CPT/HCPCS: 36415; 80053; 80061; 81001; 82306; 84443; 85025; 96127; 99212

== ENCOUNTER 2024-04-16 12:27 | Outpatient (AMB) | payer OTHER, SELFPAY ==
[2024-04-16 12:37] VITALS: BP 120/80; PULSE 73; O2SAT 94; BMI 30.7
--- NOTE | 2024-04-16 12:37 | A.OFFPC_ITS ---
Vital Signs 04/16/24 12:37 Height 6 ft Weight 226 lb 2 oz BMI 30.7 BP 120/80 Blood Pressure Location Lt brachial Position Sitting Pulse 73 Pulse Source Pulse Oximeter Pulse Oximetry (%) 94 Oxygen Delivery Method Room Air Intake Visit Reasons: [facility] f/u Monitoring Engineer Required: No Accompanied by: Self / Same As Patient Allergies Sulfa (Sulfonamide Antibiotics) Adverse Reaction (Severe, Verified 04/16/24 12:53) joint pains, difficulty breathing, dehydration? cefuroxime Adverse Reaction (Intermediate, Verified 04/16/24 12:53) shortness of breath,dehydration clavulanic acid [From AUGMENTIN] Adverse Reaction (Intermediate, Verified 04/16/24 12:53) diarrhea Medication List - Last Reconciled 04/16/24 by Jason Abraham MD atorvastatin 10 mg PO DAILY 90 days bupropion HCl XL 300 mg PO QAM citalopram 40 mg PO DAILY citalopram 20 mg PO DAILY famotidine 40 mg PO BID L.acidophil-L.plantar-Bifido 7 25 billion cell (up4 Probiotics Adult 50 Plus) caps PO multivitamin 1 tab PO DAILY olanzapine 10 mg PO BEDTIME PRN tadalafil 5 mg PO DAILY Tobacco use date assessed: 04/16/24 Fall risk assessment: No Falls in past year Last assessed Fall Risk: 04/16/24 Dental Screening Dental Screen Date: 04/16/24 Did you have a dental visit in the last 12 months?: Yes Did you have a dental problem in the last 6 months where you did not have access to dental care?: No Was dental information given to patient?: Patient has [facility] Details Patient comes in today for his follow up visit States that he feels okay He denies any headaches or dizziness Denies any chest pains, no SOB No nausea/vomiting, no abdominal pain No change in bowel habits noted Needs a couple of his Rx refilled He was not able to get his follow up labs done prior to his visit today [facility] Medical History Erectile dysfunction Mood disorder Dyslipidemia Impaired fasting glucose Anxiety and depression OCD (obsessive compulsive disorder) Gastritis and duodenitis Oral thrush Obesity (BMI 30-39.9) Depression Vitamin D deficiency GERD without esophagitis Eosinophilia Allergic rhinitis Pure hypercholesterolemia Surgical History History of toe surgery History of esophagogastroduodenoscopy (EGD) History of colonoscopy History of inguinal hernia repair Family History Father No problems noted. Mother Diabetes Hypertension Substance abuse Other Mental health problem Social History Housing: Apartment Alcohol intake: current Alcohol intake frequency: a few times a week Patient Tobacco Use Status: Former Tobacco user e-Cigarette/Vaping Use: Never Used Second Hand Smoke Exposure: Yes service: No Current occupational status: unemployed Cognitive needs: No Hearing needs: No Vision needs: Yes (glasses) Questionnaire PHQ-9 Over the last 2 weeks, how often have you been bothered by any of the following problems? 1. Little interest or pleasure in doing things: not at all 2. Feeling down, depressed, or hopeless: several days 3. Trouble falling or staying asleep, or sleeping too much: not at all 4. Feeling tired or having little energy: not at all 5. Poor appetite or overeating: not at all 6. Feeling bad about yourself - or that you are a failure or have let yourself or your family down: not at all 7. Trouble concentrating on things, such as reading the newspaper or watching television: not at all 8. Moving or speaking so slowly that other people could have noticed. Or the opposite - being so fidgety or restless that you have been moving around a lot more than usual: not at all 9. Thoughts that you would be better off or of hurting yourself in some way: not at all Total score: 1 Depression Screening Interpretation: Positive Depression Screening Follow-up: Existing condition and In treatment Depression Screening Done: Yes 02190 - PHQ-9 Billing: Yes Source: Developed by Drs. Arsenio Mcdonough, Beverley Nesbitt, Charlie Hodge and colleagues, with an educational cameron from [employer]. Thrive Questionnaire Date Thrive assessed: 04/16/24 I am a: Patient What is your living situation today?: I have a steady place to live Within the past 12 months, did the food you bought not last and you didn't have the money to get more?: Never true Within the past 12 months, did you worry whether your food would run out before you got money to buy more?: Never true Do you have trouble paying for medicines?: No Do you have trouble getting transportation to medical appointments?: No Do you have trouble paying your heating and electricity bill?: No Do you have trouble taking care of your child, family member or friend?: No Do you have trouble with day-to-day activities such as bathing, preparing meals, shopping, managing finances, etc.?: No Are you currently unemployed and looking for a job?: No Are you interested in more education?: No Please select the resources that you would like help with: None Currently or been in a relationship where the following occur: No concerns reported THRIVE Score: 0 AUDIT C Alcohol Use Questionnaire (AUDIT-C) 1. How often do you have a drink containing alcohol?: Monthly or less 2. How many drinks containing alcohol do you have on a typical day when you are drinking?: 1 or 2 3. How often do you have six or more drinks on one occasion?: Never Total Score: 1 Score Reviewed/Action Taken: Yes CHRISTINE-7 AMB Questionnaire CHRISTINE-7 Date CHRISTINE - 7 assessed: 04/16/24 (in treatment ) Feeling nervous, anxious, or on edge: 0 = Not at all Not being able to stop or control worryin = Not at all Worrying too much about different things: 0 = Not at all Trouble relaxin = Not at all Being so restless that it is hard to sit still: 0 = Not at all Becoming easily annoyed or irritable: 0 = Not at all Feeling afraid as if something awful might happen: 0 = Not at all Total CHRISTINE-7 score (0-4 normal; 5-9 mild; 10-14 moderate; 15-21 severe): 0 Source: Developed by Drs. Arsenio Mcdonough, Beverley Nesbitt, Charlie Hodge and colleagues, with an educational cameron from [employer]. CHRISTINE-7 Assessment Billing CHRISTINE-7 Assessment Tool: CHRISTINE-7 Assessment 55476 Review of Systems Const Denies chills, Denies fatigue, Denies fever(s) and Denies headache(s) ENT Denies dysphagia, Denies dizziness, Denies otalgia, Denies headache(s), Denies neck pain, Denies odynophagia and Denies sore throat Card Denies chest pain, Denies irregular heart rhythm, Denies palpitations and Denies dyspnea Resp Denies chest congestion, Denies cough and Denies dyspnea GI Denies abdominal pain, Denies constipation, Denies dysphagia, Denies heartburn, Denies diarrhea, Denies nausea, Denies odynophagia and Denies vomiting Denies difficulty urinating, Reports erectile dysfunction, Denies dysuria, Denies nocturia and Denies urinary frequency Musc Reports back pain (over the lower back), Reports arthralgias (over both hips, especially the right hip) and Denies neck pain Skin/Breast Denies rash Neuro Denies dizziness, Denies headache(s) and Denies paresthesias Endo Denies fatigue and Denies palpitations Physical exam (Primary Care) Vital Signs: Last Vital Signs Pulse 73 04/16/24 12:37 BP 120/80 04/16/24 12:37 Pulse Ox 94 04/16/24 12:37 Oxygen Delivery Method Room Air 04/16/24 12:37 BMI result Body Mass Index 30.7 Tobacco/Smoking Status: Tobacco use Status Tobacco use date assessed 04/16/24 04/16/24 12:42 Patient Tobacco Use Status Former Tobacco user 04/16/24 12:42 e-Cigarette/Vaping Use Never Used 04/16/24 12:42 PHQ-9: PHQ-9 Score PHQ-9: Total score 1 04/16/24 12:42 Depression Screening Interpretation: Positive Depression Screening Follow-up: Existing condition and In treatment Thrive Assessment: Date of Thrive Assessment Date Thrive assessed 04/16/24 04/16/24 12:42 Currently or been in a relationship where the following occur: No concerns reported Const General: no acute distress and alert HENMT Ears: TM's normal bilaterally and EAC's normal Throat: Yes posterior oropharynx normal and Yes tonsils normal (no TP congestion) Neck Neck: Yes no lymphadenopathy and Yes supple Thyroid: Thyroid normal Resp Auscultation: clear to auscultation bilaterally, no rales and no wheezes Cardio Rate: regular rate Rhythm: regular rhythm Heart sounds: no murmurs GI Palpation (GI): Soft to palpation and nontender Auscultation: normal bowel sounds General: Yes no CVA tenderness Back/Spine/Pelvis Back: no CVA tenderness Thoracic/Lumbar Spine: lumbar spinal tenderness (mild) Skin Rashes: no rashes Extrem General: Yes no clubbing, cyanosis or edema Right lower extremity: hip/thigh Details: tenderness Location: of the hip Location: posterolaterally Left lower extremity: hip/thigh Details: tenderness Location: of the hip Coding Level of Care Code Est Pt Level 4 (24874) Diagnoses Pure hypercholesterolemia E78.00 Impaired fasting glucose R73.01 Allergic rhinitis, unspecified seasonality, unspecified trigger J30.9 Allergic rhinitis trigger: unspecified Allergic rhinitis seasonality: unspecified Eosinophilia D72.19 Vitamin D deficiency E55.9 GERD without esophagitis K21.9 Erectile dysfunction, unspecified erectile dysfunction type N52.9 Erectile dysfunction type: unspecified Mood disorder F39 Obesity (BMI 30-39.9) E66.9 Additional Codes CHRISTINE-7 Assessment Billing - CHRISTINE-7 Assessment Tool: CHRISTINE-7 Assessment 05957 ([id number]) Assessment & Plan Assessment & Plan (1) Pure hypercholesterolemia: Code(s): E78.00 - Pure hypercholesterolemia, unspecified Category: Medical Plan: Patient was not able to get his follow up labs done yet - states that he has not yet eaten anything today and can go and get his labs done right after his appointment today He is cautioned that his previous cholesterol levels have increased from previous and his serum triglycerides were over 200 mg/dl back then Reinforced low cholesterol diet Continue Atorvastatin 10 mg QD for now Will recheck his labs and fasting lipids in 4 months for follow-up (2) Impaired fasting glucose: Code(s): R73.01 - Impaired fasting glucose Category: Medical Plan: Reinforced low-calorie/low carb diet; exercise as tolerated His HgbA1c was normal at 5.1% when previously checked; FBS was normal at 97 mg/dl on his previous labs Will recheck his FBS and HgbA1c ANNA for follow up (3) Allergic rhinitis: Code(s): J30.9 - Allergic rhinitis, unspecified Category: Medical Qualifiers: Allergic rhinitis trigger: unspecified Allergic rhinitis seasonality: unspecified Qualified Code(s): J30.9 - Allergic rhinitis, unspecified Plan: Continue Cetirizine 10 mg QD PRN Follow up with ENT as scheduled (4) Eosinophilia: Code(s): D72.19 - Other eosinophilia Category: Medical Plan: He still had (+)?eosinophilia on his most recent labs; he has been noted to have eosinophilia consistently on his previous labs - may be related to his allergies Patient is now seeing ENT for further evaluation and management; he was advised also of the consideration of seeing an labor relations specialist in the future if this persists (5) Vitamin D deficiency: Code(s): E55.9 - Vitamin D deficiency, unspecified Category: Medical Plan: Continue OTC Vitamin D3 1000 units QD (6) GERD without esophagitis: Code(s): K21.9 - Gastro-esophageal reflux disease without esophagitis Category: Medical Plan: Dietary restrictions reinforced Continue Famotidine 40 mg BID as needed (7) Erectile dysfunction: Code(s): N52.9 - Male erectile dysfunction, unspecified Category: Medical Qualifiers: Erectile dysfunction type: unspecified Qualified Code(s): N52.9 - Male erectile dysfunction, unspecified Plan: Continue Cialis 10 mg QD PRN (8) Mood disorder: Code(s): F39 - Unspecified mood [affective] disorder Category: Medical Plan: Patient appears to also have OCD in addition to his mood disorder/depression Continue Citalopram at 60 mg daily, Bupropion XL 300 mg daily in AM and Olanzapine 10 mg daily at bedtime Follow-up with Psychiatry as scheduled (9) Obesity (BMI 30-39.9): Code(s): E66.9 - Obesity, unspecified Category: Medical Plan: Reinforced diet/exercise as tolerated /lose weight Plan Follow up in 4 months Orders: Orders Comprehensive [place]. Panel Fast 4 Months E78.00 - Pure hypercholesterolemia, unspecified Lipid Panel 4 Months E78.00 - Pure hypercholesterolemia, unspecified TSH reflex Free T4 4 Months E78.00 - Pure hypercholesterolemia, unspecified UA CC w/rflx Micro + Cult 4 Months R30.0 - Dysuria Complete Blood Count Auto Diff 4 Months D64.9 - Anemia, unspecified Vitamin D 25-OH Total 4 Months E55.9 - Vitamin D deficiency, unspecified Medications: Refilled atorvastatin 10 mg PO DAILY 90 days 90 tabs 3RF famotidine 40 mg PO BID 180 tabs 3RF
== END 2024-04-16 13:16 | disposition home or self-care (01) ==
PROVIDERS: PCP Internal Medicine; Visit Provider Internal Medicine
DX: E78.00 Pure hypercholesterolemia, unspecified (principal); F39 Unspecified mood [affective] disorder; Z68.30 Body mass index [BMI] 30.0-30.9, adult; E66.9 Obesity, unspecified; R73.01 Impaired fasting glucose; J30.9 Allergic rhinitis, unspecified; D72.19 Other eosinophilia; E55.9 Vitamin D deficiency, unspecified; K21.9 Gastro-esophageal reflux disease without esophagitis; N52.9 Male erectile dysfunction, unspecified

== ENCOUNTER 2024-06-09 06:46 | Emergency (ER) | payer MEDICARE, MEDICAID, SELFPAY ==
[2024-06-09 06:54] VITALS: BP 150/85; PULSE 79; RESP 20; TEMP 37; O2SAT 94; BMI 30.5
--- NOTE | 2024-06-09 07:15 | ED_ITS ---
HPI - Nausea/Vomiting/Diarrhea General Chief complaint: Abdominal Pain Stated complaint: gastro issuse Time Seen by Provider: 06/09/24 07:08 Source: patient and old records reviewed Mode of arrival: ambulatory Limitations: no limitations History of Present Illness ED Provider: ARELI GAMINO Narrative: 64 yo male with PMH of esophageal strictures and food bolus impaction s/p EGD with balloon dilation x 2, GERD, mood disorder, HLD, depression, bronchitis here with c/o eating mini frozen hot dogs he got from the food pantry. He felt like they went down but then on the last one started to have nausea, pain and throwing up water and saliva. He denies feves, chest pain, SOB. He notes he spent the whole night since 930pm trying to get it to pass but he cannot keep any water down. He has no diarrhea. Mild LUQ pain. He notes he is not sure if the hot dog is still stuck. MD elicited complaint: nausea, vomiting and abdominal pain Pertinent past history: other Onset (ago): day(s) (930pm last night) Description of vomiting: watery Associated nausea: Yes Associated abdominal pain: Yes Location of pain: LUQ Pain consistency: intermittent Severity: mild Quality: aching Exacerbating factors: eating Relieving factors: none Context: other Associated symptoms: loss of appetite, malaise and nausea/vomiting Related Data Home Medications ?Medication ?Instructions ?Recorded ?Confirmed Lactobacillus cap PO 04/16/20 04/16/24 acidophil,plantar-Bifido no.7 25 billion cell capsule (up4 Probiotics Adult 50 Plus) citalopram 20 mg tablet 20 mg PO DAILY 04/16/20 04/16/24 citalopram 40 mg tablet 40 mg PO DAILY 04/16/20 04/16/24 multivitamin 1 tab PO DAILY 04/16/20 04/16/24 olanzapine 10 mg tablet 10 mg PO BEDTIME PRN 04/16/20 04/16/24 bupropion HCl 300 mg 24 hr tablet, 300 mg PO QAM 08/14/23 04/16/24 extended release Previous Rx's ?Medication ?Instructions ?Recorded atorvastatin 10 mg tablet 10 mg PO DAILY 90 days #90 tabs 04/16/24 famotidine 40 mg tablet 40 mg PO BID #180 tabs 04/16/24 tadalafil 5 mg tablet 5 mg PO DAILY #30 tabs 05/24/24 ondansetron 4 mg disintegrating 4 mg PO Q8H PRN nausea and 06/09/24 tablet vomiting #20 tabs Allergies Allergy/AdvReac Type Severity Reaction Status Date / Time Sulfa (Sulfonamide AdvReac Severe joint Verified 06/09/24 06:56 Antibiotics) pains, difficulty breathing, dehydration? cefuroxime AdvReac Intermediate shortness Verified 06/09/24 06:56 of breath,dehydration clavulanic acid AdvReac Intermediate diarrhea Verified 06/09/24 06:56 [From AUGMENTIN] Review of Systems 2 Review of Systems: Constitutional : No Weight loss, No Fever, No Chills ENT/Mouth : No sore throat, No Rhinorrhea Eyes: No Swelling, No Redness Cardiovascular : No Chest Pain, No SOB, NoEdema Respiratory : No Cough, No Sputum, No Wheezing Gastrointestinal : Positive Nausea, Positive Vomiting, no Diarrhea, positive abdominal Pain, No Hematochezia, No Melena Genitourinary : No Dysuria, No Urinary Frequency, No Hematuria, No Urgency Musculoskeletal : No joint pain, No Myalgias, No Joint Swelling Skin : No Skin Lesions, No rash Neuro : No Weakness, No Numbness, No Dizziness, No Headache All other systems reviewed and are negative. Gastrointestinal: Gastrointestinal: Reports nausea PMFSH Past Medical History Attestation statement: The following information was validated with the patient. Source: old records reviewed Medical History Erectile dysfunction Mood disorder Dyslipidemia Impaired fasting glucose Anxiety and depression OCD (obsessive compulsive disorder) Gastritis and duodenitis Oral thrush Obesity (BMI 30-39.9) Depression Vitamin D deficiency GERD without esophagitis Eosinophilia Allergic rhinitis Pure hypercholesterolemia Surgical History History of toe surgery History of esophagogastroduodenoscopy (EGD) History of colonoscopy History of inguinal hernia repair Family History Family History Father No problems noted. Mother Diabetes Hypertension Substance abuse Other Mental health problem Social History Social History Housing: Apartment Alcohol intake: current Alcohol intake frequency: a few times a week Patient Tobacco Use Status: Former Tobacco user e-Cigarette/Vaping Use: Never Used Second Hand Smoke Exposure: Yes Advance Directives: No Advance Directives Information Provided: Yes service: No Current occupational status: unemployed Cognitive needs: No Hearing needs: No Vision needs: Yes (glasses) Physical Exam 2 Vital Signs: Vital Signs: Last Vital Signs Temp 97.9 F 06/09/24 08:34 Pulse 56 06/09/24 08:34 Resp 18 06/09/24 08:34 BP 105/70 06/09/24 08:34 Pulse Ox 98 06/09/24 08:34 O2 Del Method Room Air 06/09/24 08:34 BMI result Body Mass Index 30.5 Appearance: Alert. Oriented X3. No acute distress. Eyes: Pupils equal, round and reactive to light. ENT: Pharynx normal. Neck: Normal inspection. Neck supple. CVS: Normal heart rate and rhythm. Pulses normal. Respiratory: No respiratory distress. Breath sounds normal. Abdomen: Soft and mild LUQ ttp no rebound or guarding Skin: Skin warm and dry. Normal skin color. Normal skin turgor. Extremities: No lower extremity edema. No calf ttp Neuro: Oriented X 3. No motor deficit. No sensory deficit. Medications Administered Discontinued Medications Generic Name Dose Route Start Last Admin Trade Name Tomq PRN Reason Stop Dose Admin Famotidine 20 mg 06/09/24 07:14 06/09/24 07:50 Famotidine/Pf 20 Mg/2 Ml Vial IVPUSH 06/09/24 07:15 20 mg ONCE ONE Administration Glucagon 0.5 mg 06/09/24 07:19 06/09/24 07:49 Glucagon Hcl 1 Mg Vial IVPUSH 06/09/24 07:20 0.5 mg ONCE ONE Administration Sodium Chloride 1,000 mls @ 999 mls/hr 06/09/24 07:09 06/09/24 07:49 Ns IV 06/09/24 08:09 999 mls/hr .Q1H1M ONE Administration Morphine Sulfate 4 mg 06/09/24 07:14 06/09/24 07:49 Morphine Sulfate 4 Mg/Ml Cartridge IVPUSH 06/09/24 07:15 4 mg ONCE ONE Administration Protocol Ondansetron HCl 4 mg 06/09/24 07:09 06/09/24 07:49 Ondansetron Hcl 4 Mg/2 Ml Vial IVPUSH 06/09/24 07:10 4 mg ONCE ONE Administration Medical Decision Making Medical Decision Making MDM Narrative: 64 yo male with PMH of esophageal strictures and food bolus impaction s/p EGD with balloon dilation x 2, GERD, mood disorder, HLD, depression, bronchitis here with c/o LUQ pain and n/v s/p eating mini hot dogs he states he cannot tolerate saliva or water which makes me think he has food bolus impaction vs food toxicity. His abdomen is benign. Differential Diagnosis Differential Diagnoses: The differential diagnosis associated with the presentation includes GERD, gastritis, FB impaction Admission/Observation Consideration of admission/observation: Escalation of care including admission/observation considered tolerating PO labs reassuring stable for DC Lab Data [facility] Lab Attestation statement: I reviewed the patient's lab results. 06/09/24 07:44 06/09/24 07:44 Labs: Lab Results 06/09/24 Range/Units 07:44 WBC 9.6 (4.8-10.8) X10*3/uL RBC 4.93 (4.60-5.80) X10*6/uL Hgb 15.7 (14.0-18.0) g/dl Hct 43.5 (42.0-52.0) % MCV 88.2 (80.0-98.0) fL MCH 31.8 (27.0-33.0) pg MCHC 36.1 H (31.0-36.0) g/dl RDW 12.4 (11.0-16.0) % Plt Count 225 (160-400) X10*3/uL MPV 10.1 (9.4-12.4) fL Immature Gran % (Auto) 0.4 (0.0-0.4) % Neut % (Auto) 71.1 (45-73) % Lymph % (Auto) 16.3 L (20-40) % Morris % (Auto) 8.0 (2-11) % Eos % (Auto) 3.3 (0-4) % Baso % (Auto) 0.9 (0-2) % Lymph # (Auto) 1.6 (1.2-4.9) X10*3/uL Morris # (Auto) 0.8 (0.1-1.2) X10*3/uL Eos # (Auto) 0.3 (0.0-0.4) X10*3/uL Baso # (Auto) 0.1 (0.0-0.2) X10*3/uL Abs Immat Gran (auto) 0.04 H (0.00-0.03) X10*3/uL Absolute Neuts (auto) 6.8 (2.0-8.3) x10*3/uL Absolute Nucleated RBC 0.000 (0.0-0.012) X10*3/uL Nucleated RBC % (auto) 0.0 (0.0-0.2) /100WBC Sodium 142 (135-145) mmol/L Potassium 4.0 (3.3-5.1) mmol/L Chloride 111 H (96-108) mmol/L Carbon Dioxide 20 L (22-29) mmol/L Anion Gap 15 (12-20) BUN 21 H (9-16) mg/dL Creatinine 1.30 (0.5-1.4) mg/dL Estim Creat Clear Calc 70.0 Estimated GFR 55 Random Glucose 125 H (60-115) mg/dL Calcium 9.7 (8.4-10.2) mg/dL Total Bilirubin 1.0 (0.0-1.0) mg/dL AST 31 (5-37) U/L ALT 35 (0-40) U/L Alkaline Phosphatase 67 (39-117) U/L Total Protein 7.3 (6.5-8.0) g/dL Albumin 4.3 (3.5-5.0) g/dL Lipase 14 (8-78) U/L Influenza Type A (PCR) NEGATIVE (Negative) Influenza Type B (PCR) NEGATIVE (Negative) RSV RNA Qual (PCR) NEGATIVE (Negative) SARS-CoV-2 RNA (RT-PCR) NEGATIVE (Negative) External Record Review External record reviewed: Outpatient record Prescription Management I considered prescription management with: Other Discharge Plan Discharge Clinical Impression: Nausea & vomiting Qualifiers: Vomiting type: unspecified Qualified Code(s): R11.2 - Nausea with vomiting, unspecified Gastritis Qualifiers: Gastritis type: unspecified gastritis Chronicity: acute Gastritis bleeding: w ithout bleeding Qualified Code(s): K29.00 - Acute gastritis without bleeding Patient Disposition: Home, Self-Care Instructions: Gastritis (ED), Acute Nausea and Vomiting (ED) Additional Instructions: labs reassuring eat a bland diet for 2 days continue your pepcid return for fevers, severe pain, bloody stools, unable to eat or drink or any other concerns Prescriptions: New ondansetron 4 mg tablet,disintegrating 4 mg PO Q8H PRN (Reason: nausea and vomiting) Qty: 20 0RF No Action tadalafil 5 mg tablet 5 mg PO DAILY Qty: 30 1RF citalopram 40 mg tablet 40 mg PO DAILY citalopram 20 mg tablet 20 mg PO DAILY olanzapine 10 mg tablet 10 mg PO BEDTIME PRN up4 Probiotics Adult 50 Plus 25 billion cell capsule PO multivitamin Tablet 1 tab PO DAILY bupropion HCl 300 mg tablet extended release 24 hr 300 mg PO QAM atorvastatin 10 mg tablet 10 mg PO DAILY 90 Days Qty: 90 3RF famotidine 40 mg tablet 40 mg PO BID Qty: 180 3RF Print Language: Occitan
[2024-06-09 07:48] LABS: MANUAL DIFF FLAG NO
[2024-06-09] MEDS: 0.9 % Sodium Chloride 1,000 ML 999 ML IV (07:49)
[2024-06-09] MEDS: glucagon HCL 1 MG VIAL 0.5 MG IVPUSH (07:49)
[2024-06-09] MEDS: ondansetron HCL 4 MG/2 ML VIAL IVPUSH (07:49)
[2024-06-09] MEDS: Morphine Sulfate 4 MG/ML CARTRIDGE IVPUSH (07:49)
[2024-06-09] MEDS: Famotidine/PF 20 MG/2 ML VIAL IVPUSH (07:50)
[2024-06-09 07:53] LABS: Basophils Absolute Auto 0.1 X10*3/uL (0.0-0.2); Basophils Percent Auto 0.9 % (0-2); Eosinophils Absolute Auto 0.3 X10*3/uL (0.0-0.4); Eosinophils Percent Auto 3.3 % (0-4); Hematocrit 43.5 % (42.0-52.0); Hemoglobin 15.7 g/dl (14.0-18.0); Imm Gran Abs Auto 0.04 X10*3/uL (0.00-0.03); Imm Gran Pct Auto 0.4 % (0.0-0.4); Lymphocytes Absolute Auto 1.6 X10*3/uL (1.2-4.9); Lymphocytes Percent Auto 16.3 % (20-40); Mean Corpuscular HGB Conc 36.1 g/dl (31.0-36.0); Mean Corpuscular Hemoglobin 31.8 pg (27.0-33.0); Mean Corpuscular Volume 88.2 fL (80.0-98.0); Mean Platelet Volume 10.1 fL (9.4-12.4); Monocytes Absolute Auto 0.8 X10*3/uL (0.1-1.2); Neutrophils Absolute Auto 6.8 x10*3/uL (2.0-8.3); Neutrophils Percent Auto 71.1 % (45-73); Platelet Count 225 X10*3/uL (160-400); Red Blood Count 4.93 X10*6/uL (4.60-5.80); Red Cell Distribution Width 12.4 % (11.0-16.0); White Blood Count 9.6 X10*3/uL (4.8-10.8)
[2024-06-09 08:07] LABS: Alanine Aminotransferase 35 U/L (0-40); Albumin Level 4.3 g/dL (3.5-5.0); Alkaline Phosphatase 67 U/L (39-117); Anion Gap 15 (12-20); Aspartate Amino Transferase 31 U/L (5-37); Blood Urea Nitrogen 21 mg/dL (9-16); Calcium 9.7 mg/dL (8.4-10.2); Carbon Dioxide 20 mmol/L (22-29); Chloride 111 mmol/L (96-108); Estimated Glomerular Filt Rate 55; Glucose Random 125 mg/dL (60-115); Lipase 14 U/L (8-78); Sodium 142 mmol/L (135-145); Total Protein 7.3 g/dL (6.5-8.0)
[2024-06-09 08:26] LABS: Influenza A PCR NEGATIVE (Negative); Influenza B PCR NEGATIVE (Negative); Resp Syncy Virus RNA Qual PCR NEGATIVE (Negative); SARS COV2 PCR INHOUSE NEGATIVE (Negative)
[2024-06-09 08:34] VITALS: BP 105/70; PULSE 56; RESP 18; TEMP 36.6; O2SAT 98
[2024-06-09 10:03] VITALS: BP 125/77; PULSE 56; RESP 12; TEMP 36.4; O2SAT 97
[2024-06-09] MEDS: Magnesium Hydrox/Alum Hydrox 30 ML ORAL.SUSP 15 ML PO (10:20)
[2024-06-09] MEDS: Lidocaine HCl Viscous 2 % 15 ML SOLUTION MUCOUS MEM (10:20)
--- NOTE | 2024-06-09 10:22 | PC.NURSE ---
Pt was able to get cup of water down but reports that he was burping initially. Over reports improvemetn in sx. No Active vomiting. Handling secretions.
[2024-06-09 11:31] VITALS: BP 125/77; PULSE 56; RESP 12; TEMP 36.4; O2SAT 97
== END 2024-06-09 11:35 | disposition home or self-care (01) ==
PROVIDERS: Emergency Provider Emergency Medicine; PCP Internal Medicine
DX: K29.00 Acute gastritis without bleeding (principal); R11.2 Nausea with vomiting, unspecified; R10.12 Left upper quadrant pain; Z03.818 Encounter for observation for suspected exposure to other biological agents ruled out; Z79.899 Other long term (current) drug therapy; Z87.891 Personal history of nicotine dependence
CPT/HCPCS: 0241U; 80053; 83690; 85025; 96361; 96374; 96375; 99284; J1610; J2270; J2405

== ENCOUNTER 2024-07-28 08:21 | Day surgery (SDC) | payer MEDICARE, MEDICAID, SELFPAY ==
[2024-07-24 14:16] VITALS: BMI 30.6
--- NOTE | 2024-07-28 08:15 | HO.ANESPROP2 ---
[facility] Active Problems Active Problems: All Active Problems Low back pain (Acute) Hip pain (Acute) Inguinal hernia of right side without obstruction or gangrene (Acute) Sinus infection (Acute) Upper respiratory tract infection (Acute) Erectile dysfunction (Acute) Left otitis externa (Acute) Mood disorder (Acute) Left acute otitis media (Acute) Productive cough (Acute) Congestion of nasal sinus (Acute) Annual physical exam (Acute) Onychomycosis (Acute) Dyslipidemia (Acute) Allergic rhinitis (Acute) Acute sinusitis (Acute) Impaired fasting glucose (Acute) Left ear pain (Acute) Rash and nonspecific skin eruption (Acute) Atopic dermatitis (Acute) Otitis media (Acute) Anxiety and depression (Acute) High cholesterol (Acute) Bronchitis (Acute) Gastroenteritis (Acute) Cough (Acute) Thrush, oral (Acute) Upper respiratory tract infection (Acute) Oral thrush (Acute) Obesity (BMI 30-39.9) (Acute) Depression (Acute) Vitamin D deficiency (Acute) GERD without esophagitis (Acute) Eosinophilia (Acute) Allergic rhinitis (Acute) Pure hypercholesterolemia (Acute) Past Medical History Medical History Erectile dysfunction Mood disorder Dyslipidemia Impaired fasting glucose Anxiety and depression OCD (obsessive compulsive disorder) Gastritis and duodenitis Oral thrush Obesity (BMI 30-39.9) Depression Vitamin D deficiency GERD without esophagitis Eosinophilia Allergic rhinitis Pure hypercholesterolemia Family History Family History Father No problems noted. Mother Diabetes Hypertension Substance abuse Other Mental health problem Surgical History Surgical History History of toe surgery History of esophagogastroduodenoscopy (EGD) History of colonoscopy History of inguinal hernia repair History of Problems with Anesthesia: No Social History Social History Housing: Apartment Alcohol intake: current Alcohol intake frequency: a few times a week Patient Tobacco Use Status: Former Tobacco user e-Cigarette/Vaping Use: Never Used Second Hand Smoke Exposure: Yes service: No Current occupational status: unemployed Cognitive needs: No Hearing needs: No Vision needs: Yes (glasses) Meds Allergies Allergy/AdvReac Type Severity Reaction Status Date / Time Sulfa (Sulfonamide AdvReac Severe joint Verified 06/09/24 06:56 Antibiotics) pains, difficulty breathing, dehydration? cefuroxime AdvReac Intermediate shortness Verified 06/09/24 06:56 of breath,dehydration clavulanic acid AdvReac Intermediate diarrhea Verified 06/09/24 06:56 [From AUGMENTIN] Home Medications ?Medication ?Instructions ?Recorded ?Confirmed ?Last Taken ?Type Lactobacillus 1 cap PO DAILY 04/16/20 07/24/24 Unknown History acidophil,plantar-Bifido no.7 25 billion cell capsule (up4 Probiotics Adult 50 Plus) citalopram 20 mg tablet 20 mg PO DAILY 04/16/20 07/24/24 07/28/24 History citalopram 40 mg tablet 40 mg PO DAILY 04/16/20 07/24/24 07/28/24 History multivitamin 1 tab PO DAILY 04/16/20 07/24/24 Unknown History olanzapine 10 mg tablet 10 mg PO BEDTIME PRN Anxiety 04/16/20 07/24/24 Unknown History bupropion HCl 300 mg 24 hr tablet, 300 mg PO QAM 08/14/23 07/24/24 07/28/24 History extended release Exam Height,Weight and Vital Signs: Height 6 ft Weight 102.512 kg Airway Mallampati Class: II TM Dist: >3cm Neck ROM: Full Loose/Missing/Broken Teeth: No Heart: RRR Lungs: CTA Assessment and Plan Assessment Anesthesia Assessment: Anesthesia Plan Discussed and Smoking Cess. Discussed Final Anesthetic Review History of Problems with Anesthesia: No NPO: Yes ASA Class: II Final Preanesthetic Review: Meds/Allgs Chart Reviewed, Consent Obtained/Reviewed and Anes Risks/Benef Reviewed Patient Risk: Low Procedure Risk: Intermediate Anesthetic Plan Anesthetic Plan: MAC: Disposition: Standard PACU
[2024-07-28 08:24] VITALS: BP 147/86; PULSE 76; RESP 20; TEMP 36.4; O2SAT 97
--- OUTSIDE RECORDS SUMMARY | 2024-07-28 08:25 | XMS_ITS | Clinical Summary ---
Author Organization [employer] Address [address] 7t [place] [address] Care Team Providers Care Pinion Sorter Name Role Phone Unavailable Primary Care Provider Unavailabl e Allergies Active Allergy Reactions Criticality Noted Date Comments Amoxicillin 09/11/2018 Amoxicillin-Pot Clavulanate 07/06/19 23 Clavulanic Acid 09/11/2018 Sulfamethoxazole 09/11/2018 Trimethoprim 09/11/2018 Medications atorvastatin (Lipitor) 10 MG tablet Take 10 mg by mouth in the morning. 05/15/2022 Active buPROPion XL (Wellbutrin XL) 300 MG 24 hr tablet Take 300 mg by mouth in the morning. 06/29/2022 Active citalopram (CeleXA) 20 MG tablet Take 20 mg by mouth in the morning. 06/29/2022 Active citalopram (CeleXA) 40 MG tablet TAKE 1 TABLET BY MOUTH ONCE A DAY TAKE ONE 40MG WITH THE 20MG FOR TOTAL OF 60MG A DAY. 07/01/2022 Active doxycycline (Vibra-Tabs) 100 MG tablet Take 100 mg by mouth 2 times daily. 06/28/2022 Active famotidine (Pepcid) 40 MG tablet Take 40 mg by mouth 2 times daily. 06/22/2022 Active OLANZapine (ZyPREXA) 10 MG tablet Take 1 tablet by mouth at bedtime. 06/20/2022 Active tadalafil (Cialis) 5 MG tablet TAKE 5 MG DAILY NEEDED FOR SEXUAL ACTIVITY TAKE 30MIN BEFORE SEXUAL ACTIVITY MAX 1 DOSE PER 24HRS 09/22/2021 Active Social History Tobacco Use Types Packs/Day Years Used Date Smoking Tobacco: Never Smokeless Tobacco: Never Tobacco Cessation:Counseling Given: Not Answered Alcohol Use Standard Drinks/Week Comments Yes 0 (1 standard drink = 0.6 oz pur e alcohol) Sex and Gender Information Value Date Recorded Sex Assigned at Male 04/24/2022 10:23 AM EDT Legal Sex Male 10:23 AM EDT Gender Identity Male 04/24/2022 10:23 AM EDT Sexual Orientation Straight 04/24/2022 10 :23 AM EDT Last Filed Vital Signs Vital Sign Reading Time Taken Comments Blood Pressure 122/62 04/10/2024 1:10 PM EDT Pulse 80 04/10/2024 1:10 PM EDT Temperature - - Respiratory Rate - - Oxygen Saturation - - Inhaled Oxygen Concentration - - Weight - - Height - - Body Mass Index - - Plan of Treatment Upcoming Encounters Date Type Department Care Team (Late st Contact Info) Description 10/15/2024 1:00 PM EDT Office Visit [facility] [address] [place] [address] [phone] Susu Aden [address] [place], [place] [phone] Health Maintenance Due Date Last Done Comments CT Colonography 1960 Colonoscopy 1960 Colorectal Cancer Screening 1959 Dental X-Ray: Full Mouth 1959 Depression Screening 1959 FIT DNA/Cologuard 1959 FIT 1959 FOBT 1959 Lipid Panel 1959 SDOH Screening 1959 Sigmoidoscopy 1959 Alcohol/Substance Use Screening 1971 Hepatitis C Screening 1977 Zoster Vaccines (1 of 2) 2009 Dental Oral Exam 01/04/2023 07/06/2022 Dental X-Ray: Bitewings 09/21/2024 09/21/19 24, 05/29/2023, 01/08/2023 Dental Prophylaxis 10/10/2024 04/10/2024, 0 01/08/2023, 07/06/2022 Tobacco Screening 04/10/2025 04/10/2024 DTaP/Tdap/Td Vaccines (2 - Td or Tdap) 03/28/2029 03/28/2019, 10/07/2003 RSV Patients and Patients Aged 60 years or older (1 - 1-dose 75+ series) 2034 Hepatitis B Vaccines Completed 04/13/2004, 11/11/2003, 10/07/2003 Pneumococcal Vaccine: 50+ Years Completed 03/29/2022, 03/17/2021 COVID-19 Vaccine Completed 03/23/2024, , 03/21/2022, Additional history exists Influenza Vaccine Completed 03/23/2024, , 03/21/2022, Additional history exists HIB Vaccines Aged Out No longer eligi ble based on patient's age to complete this topic HPV Vaccines Aged Out No longer eligi ble based on patient's age to complete this topic Hepatitis A Vaccines Aged Out No long er eligible based on patient's age to complete this topic IPV Vaccines Aged Out No longer eligi ble based on patient's age to complete this topic Meningococcal Vaccine Aged Out No yury brock eligible based on patient's age to complete this topic RSV under 20 months Aged Out No longe r eligible based on patient's age to complete this topic Rotavirus Vaccines Aged Out No longer eligible based on patient's age to complete this topic Procedures Procedure Name Priority Date/Time Associated Diagnosis Comments PROPHYLAXIS - ADULT Routine 04/10/2024 1 :00 PM EDT BITEWING - SINGLE RADIOGRAPHIC IMAGE Routine 09/21/2023 3:00 PM EDT PERIODIC ORAL EVALUATION - ESTABLISHED PATIENT Routine 07/06/2022 5:00 PM EST from Last 3 Months or Most Recently Relevant to Health Maintenance Insurance DENTAL [facility]
--- OUTSIDE RECORDS SUMMARY | 2024-07-28 08:25 | XMS_ITS | Encounter Summary ---
Author Organization [employer] Address [address] [facility] 7t [place] [address] Care Team Providers Care Holder Pile Driving Name Role Phone Unavailable Primary Care Provider Unavailabl e Encounter Details Date Type Department Care Team (Latest Contact Info) Description 04/11/2021 Abstract [facility] CONVERSIONS Dental, Provider, DDS Social History Tobacco Use Types Packs/Day Years Used Date Smoking Tobacco: Never Assessed Sex and Gender Information Value Date Recorded Sex Assigned at Male 04/24/2022 10:23 AM EDT Legal Sex Male 10:23 AM EDT Gender Identity Male 04/24/2022 10:23 AM EDT Sexual Orientation Straight 04/24/2022 10 :23 AM EDT documented as of this encounter Plan of Treatment Upcoming Encounters Date Type Department Care Team (Late st Contact Info) Description 10/15/2024 1:00 PM EDT Office Visit [facility] D[facility] [address] [place] [address] Susu Aden [address] [place], [place] [phone] documented as of this encounter Visit Diagnoses Not on filedocumented in this encounter
--- OUTSIDE RECORDS SUMMARY | 2024-07-28 08:25 | XMS_ITS | Encounter Summary ---
Author Organization [employer] Address [address] [facility] 7t [place] [address] Care Team Providers Care Clinical Quality Rn Name Role Phone Unavailable Primary Care Provider Unavailabl e Encounter Details Date Type Department Care Team (Latest Contact Info) Description 11/12/2020 Abstract [facility] CONVERSIONS Dental, Provider, DDS Social History Tobacco [...] Description 10/15/2024 1:00 PM EDT Office Visit [facility] DENTAL [address] [place] [address] Susu Aden [address] [place], [place] [phone] documented as of this encounter Visit Diagnoses Not on filedocumented in this encounter
--- OUTSIDE RECORDS SUMMARY | 2024-07-28 08:25 | XMS_ITS | Encounter Summary ---
Author Organization [employer] Address [address] [facility] 7t [place] [address] Care Team Providers Care Chimney Builder Name Role Phone Unavailable Primary Care Provider Unavailabl e Encounter Details Date Type Department Care Team (Latest Contact Info) Description 10/08/2018 Abstract [facility] CONVERSIONS Dental, Provider, DDS Social [...] Description 10/15/2024 1:00 PM EDT Office Visit [facility] D[facility] [address] [place] [address] Susu Aden [address] [place], [place] [phone] documented as of this encounter Visit Diagnoses Not on filedocumented in this encounter
[2024-07-28] MEDS: Lactated Ringers 1,000 ML 50 ML IVCONT (08:41)
[2024-07-28 09:15] VITALS: BP 111/73; PULSE 67; RESP 18; TEMP 36.9; O2SAT 99
--- NOTE | 2024-07-28 09:24 | PM.OP ---
Brief Operative Note Date of Service: 07/28/24 Pre-op diagnosis: Dysphagia Post-op diagnosis: other (Esophageal ring, Hiatal hernia) Surgeon: Arsenio Oreilly MD Anesthesia: MAC Was an Historiography Teacher used for this Procedure?: No Estimated blood loss (mL): 2.0 Pathology: none sent Condition: stable Disposition: PACU
[2024-07-28 09:30] VITALS: BP 100/73; PULSE 68; RESP 18; TEMP 36.5; O2SAT 92
--- NOTE | 2024-07-28 10:14 | OP_ITS ---
DATE OF SERVICE: 07/28/2024 SURGEON: Arsenio Oreilly MD INDICATIONS: The patient presents for evaluation of dysphagia. Full consent was obtained from him for this, including risks of bleeding and perforation. PREOPERATIVE DIAGNOSIS: POSTOPERATIVE DIAGNOSIS: PROCEDURE PERFORMED: Esophagogastroduodenoscopy with balloon dilation of distal esophageal ring. ESTIMATED BLOOD LOSS: COMPLICATIONS: ANESTHESIA: Monitored anesthesia care. ASSISTANTS: SPECIMENS: PREOPERATIVE DIAGNOSES: Dysphagia POSTOPERATIVE DIAGNOSES: Dysphagia, distal esophageal ring, and hiatal hernia. DESCRIPTION OF PROCEDURE: The patient was placed in the left lateral decubitus position. The Olympus video gastroscope was passed in the posterior oropharynx and upper esophagus under direct vision. The scope was passed slowly to the distal esophagus. At 39 cm was a nearly circumferential ring with normal overlying mucosa. There was no sign of any esophagitis nor any gross evidence of Beckford's esophagus. The scope easily entered the stomach. There was a small hiatal hernia. The scope was advanced to the pylorus and the duodenum was cannulated to the descending portion. The duodenum including the bulb appeared normal without mass or ulceration. The scope was withdrawn back to the stomach. The gastric antrum and body appeared normal with good peristalsis. The scope was retroflexed visualizing the proximal stomach carefully, which appeared normal, without any sign of mass or ulceration. The scope was straightened and withdrawn back to the esophagus. Given his symptomatology and the findings, I did use a [employer] incremental 18mm balloon to dilate the distal esophageal ring with an at the recommended pressure for 60 seconds. I did not dilate beyond that as there was clear disruption of the ring at that point with heme noted. The scope was then withdrawn through the remainder of the esophagus which appeared normal. The scope was withdrawn from the patient. He tolerated the procedure well and was returned to the recovery area in stable condition. IMPRESSION: 1. Distal esophageal ring, status post balloon dilation. 2. Hiatal hernia. PLAN: The patient has been advised not to use any aspirin or NSAIDs for 1 week. He has been using famotidine twice a day, but at this point, I would prefer he be on a PPI for better acid suppression. However, the patient advises me that he feels that he wants to continue the Famotidine as he otherwise feels well on that. I did advise him that I think that the omeprazole would work better at suppressing acid reflux that might be contributing to the dysphagia in relation to any component of esophageal spasm. Nonetheless, he will continue the Famotidine for now. He will see me later this year for a followup screening colonoscopy as well. MD CHARLA Osorio/KAVYA / [id number] MTDD
== END 2024-07-28 10:02 | disposition home or self-care (01) ==
PROVIDERS: PCP Internal Medicine; Visit Provider Internal Medicine
PROC: (CPT 43249; principal; 2024-07-28 09:30)
DX: R13.10 Dysphagia, unspecified (principal); K22.2 Esophageal obstruction; K44.9 Diaphragmatic hernia without obstruction or gangrene; K21.9 Gastro-esophageal reflux disease without esophagitis; F32.A Depression, unspecified; Z79.899 Other long term (current) drug therapy; E78.5 Hyperlipidemia, unspecified; Z88.1 Allergy status to other antibiotic agents; Z88.2 Allergy status to sulfonamides; Z87.891 Personal history of nicotine dependence
CPT/HCPCS: 43249; C1726; J2003; J2704

== ENCOUNTER 2024-08-22 09:00 | Outpatient (REF) | payer MEDICARE, MEDICAID, SELFPAY ==
[2024-08-22 09:26] LABS: MANUAL DIFF FLAG NO
--- OUTSIDE RECORDS SUMMARY | 2024-08-22 09:36 | XMS_ITS | Encounter Summary ---
Author Organization [employer] Address [address] [facility] 7t [place] [address] Care Team Providers Care Integration Specialist Name Role Phone Unavailable Primary Care Provider Unavailabl e Encounter Details Date Type Department Care Team (Latest Contact Info) Description 11/12/2020 Abstract [facility] CONVERSIONS Dental, Provider, DDS Social [...] 10/15/2024 1:00 PM EDT Office Visit [facility] DENTAL [address] [place] [address] Susu Aden [address] [place], [place] [phone] documented as of this encounter Visit Diagnoses Not on filedocumented in this encounter
--- OUTSIDE RECORDS SUMMARY | 2024-08-22 09:36 | XMS_ITS | Encounter Summary ---
Author Organization [employer] Address [address] [facility] 7t [place] [address] Care Team Providers Care Field Care Coordinator Name Role Phone Unavailable Primary Care Provider Unavailabl e Encounter Details Date Type Department Care Team (Latest Contact Info) Description 04/11/2021 Abstract [facility] CONVERSIONS Dental, Provider, DDS Social History Tobacco [...] Description 10/15/2024 1:00 PM EDT Office Visit [facility] [address] [place] [address] Susu Aden [address] [place], [place] [phone] documented as of this encounter Visit Diagnoses Not on filedocumented in this encounter
--- OUTSIDE RECORDS SUMMARY | 2024-08-22 09:36 | XMS_ITS | Clinical Summary ---
Author Organization [employer] Address [address] [facility] 7t [place] [address] Care Team Providers Care Line Patroller Name Role Phone Unavailable Primary Care Provider [...] Description 10/15/2024 1:00 PM EDT Office Visit [facility] D[facility]AL [address] [place] [phone] Susu Aden [address] [place], [place] [phone] Health Maintenance Due Date Last Done Comments [...] Recently Relevant to Health Maintenance Insurance [facility]AL [facility]
--- OUTSIDE RECORDS SUMMARY | 2024-08-22 09:36 | XMS_ITS | Encounter Summary ---
Author Organization [employer] Address [address] [facility] 7t [place] [address] Care Team Providers Care Industrial Safety And Health Manager Name Role Phone Unavailable Primary Care Provider Unavailabl e Encounter Details Date Type Department Care Team (Latest Contact Info) Description 10/08/2018 Abstract [facility] CONVERSIONS Dental, Provider, DDS Social [...] Office Visit [facility] [address] [place] [address] Susu Aden [address] [place], [place] [phone] documented as of this encounter Visit Diagnoses Not on filedocumented in this encounter
--- OUTSIDE RECORDS SUMMARY | 2024-08-22 09:36 | XMS_ITS | Patient Health Record ---
Author Organization [facility] Address [address] [place] [address] Care Team Providers Care Coal Inspector Name Role Phone Jarad DELGADO, Jason Primary Care Provider Arsenio Frey Unavailable [phone] ALLERGIES Allergen (clinical drug ingredient) Drug/Non Drug Allergy documented on EMR Reaction Allergy Type Onset Date Status Bactrim Unknown Drug Allergy Active amoxicillin / clavulanate Augmentin Unknown Drug Allergy Active REASON FOR REFERRAL No Information MEDICATIONS Medication SIG (Take, Route, Frequency, Duration) Notes Start Date End Date Status buPROPion HCl ER (XL) 300 MG 1 tablet in the morning Orally Once a day for 30 day(s) Active ZyPREXA 10 MG 1 tablet Orally Once a day Active Atorvastatin Calcium 10 MG 1 tablet Oral ly Once a day for 30 day(s) Active Citalopram Hydrobromide 40 MG 1.5 tablet Orally Once a day Active Famotidine 40 MG 1 tablet Oral Twice a day Active IMMUNIZATIONS Vaccine Route Administration Date Status Comme nts Influenza Unknown 04/17/2019 Administered Influenza Unknown 03/18/2024 Administered SOCIAL HISTORY Sex Assigned At : Social History Observation Description Sex Assigned At Unknown PROBLEMS Problem Type ICD Code Onset Dates Problem Status W/U Status Risk SNOMED Code Notes Problem Encounter for screening for malignant neoplasm of colon (Z12.11) Active confirmed Screening for malignant neoplasm of colon (346099086) Problem Dysphagia (R13.10) Active confirmed Dysphagia (59322951) Problem Esophageal ring (K22.2) Active confirmed 089607253 Problem Esophageal dysphagia (R13.10) Active confirmed 22564164 VITAL SIGNS Temperature 98.4 degrees Fahrenheit 07/09/2024 Blood pressure diastolic 00 mm Hg 07/09/2024 Height 70 in 07/09/2024 Blood pressure systolic 000 mm Hg 07/09/2024 Weight 225 lbs 07/09/2024 BMI 32.28 kg/m2 07/09/2024 Encounters Encounter Location Date Provider Diagnosis [facility] [address] [facility] [place] [id number] 07/28/2024 Arsenio Oreilly Esophageal ring K22.2 ; Hiatal hernia K44.9 and Dysphagia R13.10 [facility] [address] [place] [phone] 07/09/2024 Arsenio Oreilly Dysphagia R13.10 and Encounter for screening for malignant neoplasm of colon Z12.11 [facility] [address] [place] [phone] 08/03/2024 Arsenio Oreilly [facility] [address] [place] [address] 06/10/2024 Arsenio Oreilly [facility] [address] [place] [phone] 07/24/2024 Arsenio Oreilly ASSESSMENTS Encounter Date Diagnosis Assessment Notes Treatment Notes Treatment Clinical Notes 07/28/2024 Hiatal hernia (ICD-10 - K44.9) 07/28/2024 Esophageal ring (ICD-10 - K22.2) 07/09/2024 Encounter for screening for malignant neoplasm of colon (ICD-10 - Z12.11) 07/09/2024 Dysphagia (ICD-10 - R13.10) 07/28/2024 Dysphagia (ICD-10 - R13.10) PLAN OF TREATMENT Future Test Test Name Order Date COLONOSCOPY 07/30/2014 UPPER GI ENDOSCOPY BALLOOON DILATION OF ESOPH 08/27/2019 UPPER GI ENDOSCOPY BALLOOON DILATION OF ESOPH 07/09/2024 Insurance Providers Payer Name Payer Address Payer Phone Subscriber Number Group Number Insured Name Patient Relationship to Insured Coverage Start Date Coverage End Date MEDICARE OF [place] [address] [place] [address] [id number] GARETH HOYOS Self - patient is the insured MEDICAID OF [facility] [address] [place] [phone] [id number] GARETH HOYOS Self - patient is the insured MEDICAL (GENERAL) HISTORY Medical History History ICD Code Denies MT,DM,CVA,Lung disease,renal dise ase GERD Gallstone seen on an U/S in 2008--no symptoms--reviewed again at the 08/27/19 OV Depression--hx of hospitalizations and s uicide attempt EGD in 04/2014--distal esoph ageal ring and a small HH--dilated with a 16mm balloon with good effect--no esophagitis--doing well on Pepcid Neg. screening colonoscopy in 10/2014 Hyperlipidemia EGD 08/2019-mild distal esoph ageal ring that was dilated with an 18-20 mm balloon with good effect. A small hiatal hernia was noted and biopsies were negative for Beckford's esophagus. Surgical History Surgery Date(Month/Year) Right inguinal hernia repair 2006
--- OUTSIDE RECORDS SUMMARY | 2024-08-22 09:36 | XMS_ITS ---
Author Organization [facility] Address [address] [place] [address] Care Team Providers Care Children'S Attendant Name Role Phone Jarad DELGADO, Jason Primary Care Provider Arsenio Frey Unavailable [phone] REASON FOR VISIT Needs colonoscopy Encounters Encounter Location Date Provider Diagnosis [facility] [address] [place] [address] 08/03/2024 Arsenio Oreilly PLAN OF TREATMENT No Information
--- OUTSIDE RECORDS SUMMARY | 2024-08-22 09:36 | XMS_ITS ---
Author Organization [facility] Address [address] [place] [address] Care Team Providers Care Car Runner Name Role Phone Kevin Abraham MDneth Primary Care Provider Arsenio Frey Unavailable [phone] REASON FOR VISIT with balloon, dysphagia Encounters Encounter Location Date Provider Diagnosis [facility] [place] [address] [place] [phone] 07/28/2024 Arsenio Oreilly Esophageal ring K2 2.2 ; Hiatal hernia K44.9 and Dysphagia R13.10 ASSESSMENTS Encounter Date Diagnosis Assessment Notes Treatment Notes Treatment Clinical Notes 07/28/2024 Esophageal ring (ICD-10 - K22.2) 07/28/2024 Hiatal hernia (ICD-10 - K44.9) 07/28/2024 Dysphagia (ICD-10 - R13.10) PLAN OF TREATMENT No Information
--- OUTSIDE RECORDS SUMMARY | 2024-08-22 09:36 | XMS_ITS ---
Author Organization [facility] Address [address] [place] [address] Care Team Providers Care Hot Metal Charger Name Role Phone Kevin Abraham MDneth Primary Care Provider Arsenio Frey Unavailable [phone] REASON FOR VISIT H & P Encounters Encounter Location Date Provider Diagnosis [facility] [address] [place] [address] 07/24/2024 Arsenio Oreilly PLAN OF TREATMENT No Information
[2024-08-22 10:18] LABS: Basophils Absolute Auto 0.1 X10*3/uL (0.0-0.2); Basophils Percent Auto 1.8 % (0-2); Eosinophils Absolute Auto 0.6 X10*3/uL (0.0-0.4); Eosinophils Percent Auto 9.4 % (0-4); Hematocrit 42.8 % (42.0-52.0); Hemoglobin 15.1 g/dl (14.0-18.0); Imm Gran Abs Auto 0.02 X10*3/uL (0.00-0.03); Imm Gran Pct Auto 0.3 % (0.0-0.4); Lymphocytes Absolute Auto 1.6 X10*3/uL (1.2-4.9); Lymphocytes Percent Auto 25.8 % (20-40); Mean Corpuscular HGB Conc 35.3 g/dl (31.0-36.0); Mean Corpuscular Volume 90.7 fL (80.0-98.0); Mean Platelet Volume 9.7 fL (9.4-12.4); Monocytes Absolute Auto 0.6 X10*3/uL (0.1-1.2); Monocytes Percent Auto 9.8 % (2-11); Neutrophils Absolute Auto 3.2 x10*3/uL (2.0-8.3); Neutrophils Percent Auto 52.9 % (45-73); Platelet Count 203 X10*3/uL (160-400); Red Blood Count 4.72 X10*6/uL (4.60-5.80); Red Cell Distribution Width 12.3 % (11.0-16.0)
[2024-08-22 10:44] LABS: Appearance Urine Clear; Color Urine Yellow; Glucose Urine UA Negative (Negative); Leukocyte Esterase Urine Trace (Negative); Nitrite Urine Negative (Negative); PH 5.5 (5.0-9.0); Specific Gravity - Urine 1.015 (1.005-1.025); UMIC TRIGGER UACC YES; Urine Blood Negative (Negative); Urine Ketones Negative (Negative); Urine Protein Negative (Neg-Trace)
[2024-08-22 10:48] LABS: Bacteria Urine None Seen (None Seen); Hyaline Casts Urine 0-2 /LPF (0-2); RBC Urine 0-2 /HPF (0-2); Squamous Epithelial Cell Urine 0-2 /HPF (0-2); WBC Urine 0-5 /HPF (0-5)
[2024-08-22 11:09] LABS: Alanine Aminotransferase 41 U/L (0-40); Albumin Level 4.1 g/dL (3.5-5.0); Alkaline Phosphatase 74 U/L (39-117); Anion Gap 12 (12-20); Aspartate Amino Transferase 26 U/L (5-37); Blood Urea Nitrogen 18 mg/dL (9-16); Calcium 9.5 mg/dL (8.4-10.2); Carbon Dioxide 25 mmol/L (22-29); Chloride 108 mmol/L (96-108); Cholesterol 249 mg/dL (<200); Estimated Glomerular Filt Rate > 60; Glucose Fasting 81 mg/dL (60-99); HDL Cholesterol 44 mg/dL (>40); LDL Cholesterol Calculated 128 mg/dL (<100); Potassium 3.9 mmol/L (3.3-5.1); Sodium 141 mmol/L (135-145); Total Protein 7.2 g/dL (6.5-8.0); Triglycerides 387 mg/dL (<150)
[2024-08-22 11:13] LABS: TSH reflex Free T4 1.56 uIU/mL (0.32-4.0); Vitamin D 25-OH Total 32.3 ng/mL (>30)
== END 2024-08-22 09:01 | disposition home or self-care (01) ==
LOC: HO.LAB 09:00
PROVIDERS: PCP Internal Medicine; Visit Provider Internal Medicine
DX: D64.9 Anemia, unspecified (principal); E55.9 Vitamin D deficiency, unspecified; E78.00 Pure hypercholesterolemia, unspecified
CPT/HCPCS: 36415; 80053; 80061; 81001; 82306; 84443; 85025

== ENCOUNTER 2024-11-04 16:47 | Outpatient (AMB) | payer MEDICARE, MEDICAID, SELFPAY ==
--- OUTSIDE RECORDS SUMMARY | 2024-11-04 16:50 | XMS_ITS ---
Author Organization [facility] Address [address] [place] [address] Care Team Providers Care Facilities And Grounds Director Name Role Phone Jason Abraham MD Primary Care Provider Arsenio Frey [facility] [phone] REASON FOR VISIT Needs colonoscopy Medications Medication SIG (Take, Route, Frequency, Duration) Notes Start Date End Date Status MiraLax (colon prep) 17 GM/SCOOP 1 238Gm bottle mixed with Gatorade or Crystal Light orally begin at 5:00 p.m. the day before the procedure for 1 days 10/17/2024 Active Dulcolax (colon prep) 5 MG take at 3:00 p.m and 7:00p.m. Orally two tablets twice a day for one day for 1 days 10/17/2024 Active Procedures Procedure Date Ordered Date Performed Result Body Sit e COLONOSCOPY 08/03/2024 N/A Encounters Encounter Location Date Provider Diagnosis [facility] [address] [place] [address] 08/03/2024 Arsenio Oreilly Colon cancer screening Z12.11 Assessments Encounter Date Diagnosis (ICD Code) Assessment Notes Treatment Notes Treatment Clinical Notes Section Notes 08/03/2024 Colon cancer screening (ICD-10 - Z12.11) Plan Of Treatment Medication Medication Name Sig Start Date Stop Date Notes MiraLax (colon prep) 17 GM/SCOOP 1 238Gm bottle mixed with Gatorade or Crystal Light orally begin at 5:00 p.m. the day before the procedure for 1 days 10/17/2024 Dulcolax (colon prep) 5 MG take at 3:00 p.m and 7:00p.m. Orally two tablets twice a day for one day for 1 days 10/17/2024 Pending Test Test Name Order Date COLONOSCOPY 08/03/2024 Next Appt Details Provider Name:Arsenio Oreilly , 01/05/2025 12:20:00 PM, [address] [place] [address] , [place], [place], [phone], Progress Notes * GARETH HOYOS CDOB:[birth year] (64 yo M)Acc No.[id number]:08/03/2024 Patient:?GARETH HOYOS :1960???Age:64 Y???Sex:Male Address:[address] [place] [address], [place] [address] * Refills? Start MiraLax (colon prep) Powder, 17 GM/SCOOP, orally, 1, 1 238Gm bottle mixed with Gatorade or Crystal Light, begin at 5:00 p.m. the day before the procedure, 1 days, Refills=0 Start Dulcolax (colon prep) Tablet Delayed Release, 5 MG, Orally, 4, take at 3:00 p.m and 7:00p.m., two tablets twice a day for one day, 1 days, Refills=0 Subjective: * Chief Complaints: * ???Needs colonoscopy * Medical History:? * Surgical History:? * Hospitalization/Major Diagno stic Procedure:? * Medications:? Objective: * Vitals:? * Physical Examination:? Assessment: * Assessment: 1.?Colon cancer screening - Z12.11 (Primary)??? Plan: * Treatment: 2.?Others? Start MiraLax (colon prep) Powder, 17 GM/SCOOP, 1 238Gm bottle mixed with Gatorade or Crystal Light, orally, begin at 5:00 p.m. the day before the procedure, 1 days, 1, Refills 0;?Start Dulcolax(colon prep) Tablet Delayed Release, 5 MG, take at 3:00 p.m and 7:00p.m., Orally, two tablets twicea day for one day, 1 days, 4, Refills 0.?? * Procedure Codes:?63301 DIAGN OSTIC COLONOSCOPY * true * Date:? Generated for Brittany skinner/Omkar/eTransmitting on:?11/04/2024 04:50 PM EDT
--- OUTSIDE RECORDS SUMMARY | 2024-11-04 16:50 | XMS_ITS ---
Author Organization [facility] Address [address] [place] [address] Care Team Providers Care Food Service Order Clerk Name Role Phone Kevin Abraham MDneth Primary Care Provider Arsenio Frey Unavailable [phone] REASON FOR VISIT H & P Encounters Encounter Location Date Provider Diagnosis [facility] [address] [place] [address] 07/24/2024 Arsenio Oreilly Plan Of Treatment Next Appt Details Provider Name:Arsenio Oreilly , 01/05/2025 12:20:00 PM, [address] [place] [address] , [place], [place], [phone], Progress Notes * GARETH HOYOS CDOB:[birth year] (64 yo M)Acc No.[id number]:07/24/2024 Patient:?GARETH HOYOS :1960???Age:64 Y???Sex:Male Address:[address] [place] [address] [address], [place] [address] * true * Date:? Generated for Printi ng/Fayukig/eTransmitting on:?11/04/2024 04:50 PM EDT
--- OUTSIDE RECORDS SUMMARY | 2024-11-04 16:50 | XMS_ITS | Clinical Summary ---
Author Organization [employer] Address [address] [place] [address] Care Team Providers Care Scheduler Conveyor Name Role Phone Unavailable Primary Care Provider Unavailabl e Allergies Active Allergy Reactions Criticality Noted Date Comments Amoxicillin 09/11/2018 Amoxicillin-Pot Clavulanate 07/06/19 23 Clavulanic Acid 09/11/2018 Sulfamethoxazole 09/11/2018 Trimethoprim 09/11/2018 Medications atorvastatin (Lipitor) 10 MG tablet Take 10 mg by mouth in the morning. 2 Active buPROPion XL (Wellbutrin XL) 300 MG 24 hr tablet Take 300 mg by mouth in the morning. 3 Active citalopram (CeleXA) 20 MG tablet Take 20 mg by mouth in the morning. 3 Active citalopram (CeleXA) 40 MG tablet TAKE 1 TABLET BY MOUTH ONCE A DAY TAKE ONE 40MG WITH THE 20MG FOR TOTAL OF 60MG A DAY. 3 Active doxycycline (Vibra-Tabs) 100 MG tablet Take 100 mg by mouth 2 times daily. 3 Active famotidine (Pepcid) 40 MG tablet Take 40 mg by mouth 2 times daily. 2 Active OLANZapine (ZyPREXA) 10 MG tablet Take 1 tablet by mouth at bedtime. 2 Active tadalafil (Cialis) 5 MG tablet TAKE 5 MG DAILY NEEDED FOR SEXUAL ACTIVITY TAKE 30MIN BEFORE SEXUAL ACTIVITY MAX 1 DOSE PER 24HRS 2 Active azithromycin (Zithromax) 250 MG tablet Take (2) tabs 1st day; take (1) tab next 4 days. 6 tablet 5 Active ibuprofen 600 MG tablet Take 1 tablet (600 mg) by mouth 3 times daily for 10 days. 30 tablet 5 10/18/19 25 Active Problems No known active problems Encounters Date Type Department Care Team Description 10/23/2024 1:00 PM EDT Office Visit [facility] [address] [place] [address] Susu Aden 10/07/2024 10:00 AM EDT Office Visit [facility]ULT [facility] [address] [place] [address] Traci Martinez DDS from Last 3 Months Social History Tobacco Use Types Packs/Day Years [...] Sign Reading Time Taken Comments Blood Pressure 132/80 10/23/2024 1:11 PM EDT Pulse 91 10/23/2024 1:11 PM EDT Temperature - - Respiratory Rate - - Oxygen Saturation - - Inhaled Oxygen Concentration - - Weight - - Height - - Body Mass Index - - Plan of Treatment Upcoming Encounters Date Type Department Care Team (Late st Contact Info) Description 11/05/2024 8:00 AM EDT Office Visit [facility] [address] [place] [address] Traci Martinez DDS [address] [place] [address] 04/30/2025 1:00 PM EST Office Visit [facility] [address] [place] [address] Susu Aden [address] [place] [address] Health Maintenance Due Date Last Done Comments CT Colonography 1959 Colonoscopy 1959 Colorectal Cancer Screening 1959 Dental X-Ray: Full Mouth 1959 Depression Screening 1959 FIT DNA/Cologuard 1959 FIT 1959 FOBT 1959 Lipid Panel 1959 SDOH Screening 1959 Sigmoidoscopy 1959 Alcohol/Substance Use Screening 1971 Hepatitis C Screening 1977 Zoster Vaccines (1 of 2) 2009 Dental Oral Exam 01/04/2023 07/06/2022 Dental Prophylaxis 04/26/2025 10/23/2024, 1 , 01/08/2023, Additional history exists Tobacco Screening 10/23/2025 10/23/2024 Dental X-Ray: Bitewings 10/24/2025 10/24/19, 09/21/2023, 05/29/2023, Additional history exists DTaP/Tdap/Td Vaccines (2 - Td or Tdap) [...] Procedure Name Priority Date/Time Associated Diagnosis Comments BITEWINGS - 4 RADIOGRAPHIC IMAGES Routine 10/23/2024 1:00 PM EDT PROPHYLAXIS - ADULT Routine 10/23/2024 1 :00 PM EDT CASE PRESENTATION, DETAILED AND EXTENSIVE TREATMENT PLANNING Routine 10/23/2024 1:00 PM EDT LIMITED ORAL EVALUATION - PROBLEM FOCUSED Routine 10/07/2024 10:00 AM EDT PERIODIC ORAL EVALUATION - ESTABLISHED PATIENT Routine 07/06/2022 5:00 PM EST from Last 3 Months or Most Recently Relevant to Health Maintenance Insurance [address] [place] [address] [facility] [facility] AD[facility] - [facility] MEDICAID DDS ADULT [address] [place] [address] [address]
--- OUTSIDE RECORDS SUMMARY | 2024-11-04 16:51 | XMS_ITS | Encounter Summary ---
Author Organization [employer] Address [address] 7[address] [place] [address] Care Team Providers Care Cold Strip Feeder Name Role Phone Unavailable Primary Care Provider Unavailabl e Encounter Details Date Type Department Care Team (Latest Contact Info) Description 11/12/2020 Abstract [facility] CONVERSIONS Dental, Provider, DDS Social History [...] Description 11/05/2024 8:00 AM EDT Office Visit [facility] [address] [place] [address] Traci Martinez, DDS [address] [place] [address] 04/30/2025 1:00 PM EST Office Visit [facility] [address] [place], [place] [phone] Susu Aden [address] [place], [place] [phone] documented as of this encounter Visit Diagnoses Not on filedocumented in this encounter
--- OUTSIDE RECORDS SUMMARY | 2024-11-04 16:51 | XMS_ITS | Patient Health Record ---
Author Organization [facility] Address [address] [place] [address] Care Team Providers Care Sales And Leasing Agent Name Role Phone Jarad DELGADO, Jason Primary Care Provider Arsenio Frey Unavailable [phone] Allergies Allergen (clinical drug ingredient) Drug/Non Drug Allergy documented on EMR Reaction Allergy Type Onset Date Status sulfamethoxazole / trimethoprim Bactrim Unknown Drug Allergy Active amoxicillin / clavulanate Augmentin Unknown Drug Allergy Active Reason For Referral No Information Medications Medication SIG (Take, Route, Frequency, Duration) Notes Start Date End Date Status MiraLax (colon prep) 17 GM/SCOOP 1 238Gm bottle mixed with Gatorade or Crystal Light orally begin at 5:00 p.m. the day before the procedure for 1 days 10/17/2024 Active buPROPion HCl ER (XL) 300 MG 1 tablet in the morning Orally Once a day for 30 day(s) Active Dulcolax (colon prep) 5 MG take at 3:00 p.m and 7:00p.m. Orally two tablets twice a day for one day for 1 days 10/17/2024 Active ZyPREXA 10 MG 1 tablet Orally Once a day Active Atorvastatin Calcium 10 MG 1 tablet Oral ly Once a day for 30 day(s) Active Citalopram Hydrobromide 40 MG 1.5 tablet Orally Once a day Active Famotidine 40 MG 1 tablet Oral Twice a day Active Immunizations Vaccine Route Administration Date Status Comme nts Influenza Unknown 04/17/2019 Administered Influenza Unknown 03/18/2024 Administered Problems Problem Type SNOMED Code ICD Code Onset Dates Problem Status W/U Status Risk Notes Problem Screening for malignant neoplasm of colon (818334767) Encounter for screening for malignant neoplasm of colon (Z12.11) Active confirmed Problem Dysphagia (60337966) Dysphagia (R13.10) Active confirmed Problem 733791033 Esophageal ring (K22.2) Active confirmed Problem 78454900 Esophageal dysphagia (R13.10) Active confirmed Vital Signs Temperature 98.4 degrees Fahrenheit 07/09/2024 Blood pressure diastolic 00 mm Hg 07/09/2024 Height 70 in 07/09/2024 Blood pressure systolic 000 mm Hg 07/09/2024 Weight 225 lbs 07/09/2024 BMI 32.28 kg/m2 07/09/2024 Procedures Procedure Date Ordered Date Performed Result Body Sit e COLONOSCOPY 08/03/2024 N/A Encounters Encounter Location Date Provider Diagnosis [facility] [address] [place], [place] [phone] 07/28/2024 Arseino Oreilly Esophageal ring K22.2 ; Hiatal hernia K44.9 and Dysphagia R13.10 [facility] [address] [place] [address] 07/09/2024 Arsenio Oreilly Dysphagia R13.10 and Encounter for screening for malignant neoplasm of colon Z12.11 [facility] [address] [place] [address] 06/10/2024 Arsenio Oreilly [facility] [address] [place] [address] 07/24/2024 Arsenio Oreilly [facility] [address] [place] [address] 08/03/2024 Arsenio Oreilly Colon cancer screening Z12.11 Assessments Encounter Date Diagnosis (ICD Code) Assessment Notes Treatment Notes Treatment Clinical Notes Section Notes 07/28/2024 Hiatal hernia (ICD-10 - K44.9) 07/28/2024 Esophageal ring (ICD-10 - K22.2) 07/09/2024 Encounter for screening for malignant neoplasm of colon (ICD-10 - Z12.11) Overall, Gareth appears well. We did review that based on his current symptoms it does seem that his esophageal ring and/or a possible stricture in relation to reflux has recurred and has become symptomatic. As such, I did recommend an upper endoscopy with dilation in the near future. Fulll consent was obtained for that, including risks of bleeding and perforation. The procedure will be done with monitored anesthesia care. I did advise him to be very careful between now and when we do the procedure in the near future. I did advise him to contact me prior to the procedure if things worsen before that. We did review that I may switch him to a PPI after the procedure depending upon the endoscopic findings to hopefully minimize any further acid reflux-induced injury to the esophagus that might increase the risk of a recurrence of an esophageal stricture and/or esophageal spasm. We did review his need for a followup colonoscopy for screening as it has been just about 10 years since the last exam. We did review the rationale for that in regard to colon cancer prevention. We shall arrange that once we have settled his upper GI complaints as there is no urgency for a colonoscopy at this time. Gareth was very comfortable with this plan. Thank you again for allowing me to participate in Gareth's care. I shall continue to keep you advised of his progress. 07/09/2024 Dysphagia (ICD-10 - R13.10) Overall, Gareth appears well. We did review that based on his current symptoms it does seem that his esophageal ring and/or a possible stricture in relation to reflux has recurred and has become symptomatic. As such, I did recommend an upper endoscopy with dilation in the near future. Fulll consent was obtained for that, including risks of bleeding and perforation. The procedure will be done with monitored anesthesia care. I did advise him to be very careful between now and when we do the procedure in the near future. I did advise him to contact me prior to the procedure if things worsen before that. We did review that I may switch him to a PPI after the procedure depending upon the endoscopic findings to hopefully minimize any further acid reflux-induced injury to the esophagus that might increase the risk of a recurrence of an esophageal stricture and/or esophageal spasm. We did review his need for a followup colonoscopy for screening as it has been just about 10 years since the last exam. We did review the rationale for that in regard to colon cancer prevention. We shall arrange that once we have settled his upper GI complaints as there is no urgency for a colonoscopy at this time. Gareth was very comfortable with this plan. Thank you again for allowing me to participate in Gareth's care. I shall continue to keep you advised of his progress. 08/03/2024 Colon cancer screening (ICD-10 - Z12.11) 07/28/2024 Dysphagia (ICD-10 - R13.10) Plan Of Treatment Pending Test Test Name Order Date COLONOSCOPY 08/03/2024 Future Test Test Name Order Date COLONOSCOPY 07/30/2014 UPPER GI ENDOSCOPY BALLOOON DILATION OF ESOPH 08/27/2019 UPPER GI ENDOSCOPY BALLOOON DILATION OF ESOPH 07/09/2024 Next Appt Details Provider Name:Arsenio Oreilly , 01/05/2025 12:20:00 PM, [address] [facility] , [place], [place], [phone], Insurance Providers Payer Name Payer Address Payer Phone Subscriber Number Group Number Insured Name Patient Relationship to Insured Coverage Start Date Coverage End Date MED[place]ARE OF [place] [address] [place] [address] [phone] [id number] GARETH HOYOS Self - patient is the insured MEDICAID [facility] [address] [place] [id number] GARETH HOYOS Self - patient is the insured Medical (General) History Medical History History ICD Code Denies [place],DM,CVA,Lung disease,renal dise ase GERD Gallstone seen on [...]
--- OUTSIDE RECORDS SUMMARY | 2024-11-04 16:51 | XMS_ITS | Encounter Summary ---
Author Organization [employer] Address [address] [place] [address] Care Team Providers Care Sample Distributor Name Role Phone Unavailable Primary Care Provider Unavailabl e Encounter Details Date Type Department Care Team (Latest Contact Info) Description 10/08/2018 Abstract [facility] CONVERSIONS Dental, Provider, DDS Social History [...] Description 11/05/2024 8:00 AM EDT Office Visit [facility] ADULT [facility] [address] [place] [address] Traci Martinez, DDS [address] [place] [address] 04/30/2025 1:00 PM EST Office Visit [facility] [address] [place], [place] [phone] Susu Aden [address] [place], [place] [phone] documented as of this encounter Visit Diagnoses Not on filedocumented in this encounter
--- OUTSIDE RECORDS SUMMARY | 2024-11-04 16:51 | XMS_ITS | Encounter Summary ---
Author Organization [employer] Address [address] [place] [address] Care Team Providers Care Appointment Manager Name Role Phone Unavailable Primary Care Provider Unavailabl e Encounter Details Date Type Department Care Team (Latest Contact Info) Description 04/11/2021 Abstract [facility]VERSION[facility] Dental, Provider, DDS Social History Tobacco [...] Description 11/05/2024 8:00 AM EDT Office Visit [facility] [address] [place] [address] Traci Martinez, DDS [address] [place] [address] 04/30/2025 1:00 PM EST Office Visit [facility] [address] [place], [place] [phone] Susu Aden [address] [place], [place] [phone] documented as of this encounter Visit Diagnoses Not on filedocumented in this encounter
[2024-11-04 16:53] VITALS: BP 122/86; PULSE 81; O2SAT 96; BMI 33.0
--- NOTE | 2024-11-04 16:53 | A.OFFPC_ITS ---
Vital Signs 11/04/24 16:53 Height 6 ft Weight 243 lb 8 oz BMI 33.0 BP 122/86 Blood Pressure Location Lt brachial Position Sitting Pulse 81 Pulse Source Pulse Oximeter Pulse Oximetry (%) 96 Oxygen Delivery Method Room Air Intake Visit Reasons: hyperlipidemia, GERD Material Checker Required: No Accompanied by: Self / Same As Patient Allergies Sulfa (Sulfonamide Antibiotics) Adverse Reaction (Severe, Verified 11/04/24 17:03) joint pains, difficulty breathing, dehydration? cefuroxime Adverse Reaction (Intermediate, Verified 11/04/24 17:03) shortness of breath,dehydration clavulanic acid [From AUGMENTIN] Adverse Reaction (Intermediate, Verified 11/04/24 17:03) diarrhea Medication List - Last Reconciled 11/04/24 by Jason Abraham MD atorvastatin 10 mg PO DAILY 90 days bupropion HCl XL 300 mg PO QAM citalopram 40 mg PO DAILY citalopram 20 mg PO DAILY famotidine 40 mg PO BID L.acidophil-L.plantar-Bifido 7 25 billion cell (up4 Probiotics Adult 50 Plus) 1 cap PO DAILY multivitamin 1 tab PO DAILY olanzapine 10 mg PO BEDTIME PRN ondansetron 4 mg PO Q8H PRN tadalafil 5 mg PO DAILY Tobacco use date assessed: 11/04/24 Fall risk assessment: No Falls in past year Last assessed Fall Risk: 11/04/24 Dental Screening Dental Screen Date: 11/04/24 Did you have a dental visit in the last 12 months?: Yes Did you have a dental problem in the last 6 months where you did not have access to dental care?: No Was dental information given to patient?: Patient has dentist HPI hyperlipidemia, GERD HPI Details Patient comes in today for his follow up visit States that he feels okay He denies any headaches or dizziness Denies any chest pains, no increased SOB No nausea/vomiting, no abdominal pain No change in bowel habits noted He did not have any follow up labs done recently but did get his labs done right after his last visit earlier this year [facility] Medical History Erectile dysfunction Mood disorder Dyslipidemia Impaired fasting glucose Anxiety and depression OCD (obsessive compulsive disorder) Gastritis and duodenitis Oral thrush Obesity (BMI 30-39.9) Depression Vitamin D deficiency GERD without esophagitis Eosinophilia Allergic rhinitis Pure hypercholesterolemia Surgical History History of toe surgery History of esophagogastroduodenoscopy (EGD) History of colonoscopy History of inguinal hernia repair Family History Father No problems noted. Mother Diabetes Hypertension Substance abuse Other Mental health problem Social History Housing: Apartment Alcohol intake: current Alcohol intake frequency: a few times a week Patient Tobacco Use Status: Former Tobacco user e-Cigarette/Vaping Use: Never Used Second Hand Smoke Exposure: Yes service: No Current occupational status: unemployed Cognitive needs: No Hearing needs: No Vision needs: Yes (glasses) Questionnaire PHQ-9 Over the last 2 weeks, how often have you been bothered by any of the following problems? 1. Little interest or pleasure in doing things: several days 2. Feeling down, depressed, or hopeless: several days 3. Trouble falling or staying asleep, or sleeping too much: not at all 4. Feeling tired or having little energy: several days 5. Poor appetite or overeating: several days 6. Feeling bad about yourself - or that you are a failure or have let yourself or your family down: not at all 7. Trouble concentrating on things, such as reading the newspaper or watching television: not at all 8. Moving or speaking so slowly that other people could have noticed. Or the opposite - being so fidgety or restless that you have been moving around a lot more than usual: not at all 9. Thoughts that you would be better off or of hurting yourself in some way: not at all Total score: 4 Depression Screening Interpretation: Positive Depression Screening Follow-up: Existing condition and In treatment Depression Screening Done: Yes 53585 - PHQ-9 Billing: Yes Source: Developed by Drs. Arsenio Mcdonough, Beverley Nesbitt, Charlie Hodge and colleagues, with an educational cameron from [employer]. Thrive Questionnaire Date Thrive assessed: 11/04/24 I am a: Patient What is your living situation today?: I have a steady place to live Within the past 12 months, did the food you bought not last and you didn't have the money to get more?: Sometimes True Within the past 12 months, did you worry whether your food would run out before you got money to buy more?: Sometimes True Do you have trouble paying for medicines?: Yes Do you have trouble getting transportation to medical appointments?: No Do you have trouble paying your heating and electricity bill?: Yes Do you have trouble taking care of your child, family member or friend?: No Do you have trouble with day-to-day activities such as bathing, preparing meals, shopping, managing finances, etc.?: No Are you currently unemployed and looking for a job?: I choose not to answer this question Are you interested in more education?: Yes Please select the resources that you would like help with: Food, Paying for medicine, Transportation, Utilities and Job search/training Currently or been in a relationship where the following occur: Controlled Emotionally THRIVE Score: 4 AUDIT C Alcohol Use Questionnaire (AUDIT-C) 1. How often do you have a drink containing alcohol?: 2-3 times a week 2. How many drinks containing alcohol do you have on a typical day when you are drinking?: 1 or 2 3. How often do you have six or more drinks on one occasion?: Never Total Score: 3 Score Reviewed/Action Taken: Yes CHRISTINE-7 AMB Questionnaire CHRISTINE-7 Date HCRISTINE - 7 assessed: 11/04/24 (in treatment ) Feeling nervous, anxious, or on edge: 1 = Several days Not being able to stop or control worryin = Several days Worrying too much about different things: 1 = Several days Trouble relaxin = Not at all Being so restless that it is hard to sit still: 0 = Not at all Becoming easily annoyed or irritable: 0 = Not at all Feeling afraid as if something awful might happen: 0 = Not at all Total CHRISTINE-7 score (0-4 normal; 5-9 mild; 10-14 moderate; 15-21 severe): 3 Source: Developed by Drs. Arsenio Mcdonough, Beverley Nesbitt, Charlie Hodge and colleagues, with an educational cameron from [employer]. Review of Systems Const Denies chills, Denies fatigue, Denies fever(s) and Denies headache(s) ENT Denies dysphagia, Denies dizziness, Denies otalgia, Denies headache(s), Denies neck pain, Denies odynophagia and Denies sore throat Card Denies chest pain, Denies irregular heart rhythm, Denies palpitations and Denies dyspnea Resp Denies chest congestion, Denies cough and Denies dyspnea GI Denies abdominal pain, Denies constipation, Denies dysphagia, Denies heartburn, Denies diarrhea, Denies nausea, Denies odynophagia and Denies vomiting Denies difficulty urinating, Reports erectile dysfunction, Denies dysuria, Denies nocturia and Denies urinary frequency Musc Reports back pain (over the lower back), Reports arthralgias (over both hips, especially the right hip) and Denies neck pain Skin/Breast Denies rash Neuro Denies dizziness, Denies headache(s) and Denies paresthesias Endo Denies fatigue and Denies palpitations Physical exam (Primary Care) Vital Signs: Last Vital Signs Pulse 81 11/04/24 16:53 BP 122/86 11/04/24 16:53 Pulse Ox 96 11/04/24 16:53 Oxygen Delivery Method Room Air 11/04/24 16:53 BMI result Body Mass Index 33.0 Tobacco/Smoking Status: Tobacco use Status Tobacco use date assessed 11/04/24 11/04/24 16:58 Patient Tobacco Use Status Former Tobacco user 11/04/24 16:58 e-Cigarette/Vaping Use Never Used 11/04/24 16:58 PHQ-9: PHQ-9 Score PHQ-9: Total score 4 11/04/24 16:58 Depression Screening Interpretation: Positive Depression Screening Follow-up: Existing condition and In treatment Thrive Assessment: Date of Thrive Assessment Date Thrive assessed 11/04/24 11/04/24 16:58 Currently or been in a relationship where the following occur: Controlled Emotionally Const General: no acute distress and alert HENMT Ears: TM's normal bilaterally and EAC's normal Throat: Yes posterior oropharynx normal and Yes tonsils normal (no TP congestion) Neck Neck: Yes supple and No lymphadenopathy Thyroid: Thyroid normal Resp Auscultation: clear to auscultation bilaterally, no rales and no wheezes Cardio Rate: regular rate Rhythm: regular rhythm Heart sounds: no murmurs GI Palpation (GI): Soft to palpation and nontender Auscultation: normal bowel sounds General: Yes no CVA tenderness Back/Spine/Pelvis Back: no CVA tenderness Thoracic/Lumbar Spine: lumbar spinal tenderness (mild) Skin Rashes: no rashes Extrem General: Yes no clubbing, cyanosis or edema Right lower extremity: hip/thigh Details: tenderness Location: of the hip Location: posterolaterally Left lower extremity: hip/thigh Details: tenderness Location: of the hip Results Reviewed Results Reviewed: Laboratory Tests 12/10/23 04/16/24 08/22/24 10:51 13:36 09:21 WBC Hgb Hct Plt Count Eos % (Auto) 8.1 H Sodium Potassium Creatinine Estimated GFR Fasting Glucose Calcium AST ALT Triglycerides 266 H Cholesterol 202 H LDL Cholesterol, Calc 98 HDL Cholesterol 51 25-OH Vitamin D Total TSH Ur Specific [place] 1.015 Urine Protein Negative Urine Glucose (UA) Negative Urine Blood Negative Urine Nitrite Negative Ur Leukocyte Esterase Trace H 08/22/24 09:24 WBC 6.0 Hgb 15.1 Hct 42.8 Plt Count 203 Eos % (Auto) Sodium 141 Potassium 3.9 Creatinine 1.13 Estimated GFR > 60 Fasting Glucose 81 Calcium 9.5 AST 26 ALT 41 H Triglycerides 387 H Cholesterol 249 H LDL Cholesterol, Calc 128 H HDL Cholesterol 44 25-OH Vitamin D Total 32.3 TSH 1.56 Ur Specific [place] Urine Protein Urine Glucose (UA) Urine Blood Urine Nitrite Ur Leukocyte Esterase Coding Level of Care Code Est Pt Level 4 (23095) Diagnoses Pure hypercholesterolemia E78.00 Impaired fasting glucose R73.01 Allergic rhinitis, unspecified seasonality, unspecified trigger J30.9 Allergic rhinitis trigger: unspecified Allergic rhinitis seasonality: unspecified Eosinophilia D72.19 Vitamin D deficiency E55.9 GERD without esophagitis K21.9 Erectile dysfunction, unspecified erectile dysfunction type N52.9 Erectile dysfunction type: unspecified Mood disorder F39 Obesity (BMI 30-39.9) E66.9 Additional Codes PHQ-9 - 04731 - PHQ-9 Billing: Yes ([id number]) Assessment & Plan Assessment & Plan (1) Pure hypercholesterolemia: Code(s): E78.00 - Pure hypercholesterolemia, unspecified Category: Medical Plan: Patient does not have any follow up labs done recently but he did get labs done right after his last visit a few months ago Have cautioned him again that his previous cholesterol levels have increased further and his serum triglycerides went from 266 mg/dl to 387 mg/dl; total cholesterol was most recently at 249 mg/dl and LDL cholesterol at 128 mg/dl (up 30 points from before) Reinforced low cholesterol diet - patient admits to eating a lot of ice cream over the past few months Continue Atorvastatin 10 mg QD for now but advised that we will need to increase his dose if his cholesterol numbers continue to stay high Will recheck his labs and fasting lipids in 4 months for follow-up (2) Impaired fasting glucose: Code(s): R73.01 - Impaired fasting glucose Category: Medical Plan: Reinforced low-calorie/low carb diet; exercise as tolerated His HgbA1c was normal at 5.1% when previously checked; FBS was normal at 81 mg/dl on his most recent labs done a few months ago Will recheck his FBS and HgbA1c in 4 months for follow up (3) Allergic rhinitis: Code(s): J30.9 - Allergic rhinitis, unspecified Category: Medical Qualifiers: Allergic rhinitis trigger: unspecified Allergic rhinitis seasonality: unspecified Qualified Code(s): J30.9 - Allergic rhinitis, unspecified Plan: Continue Cetirizine 10 mg QD PRN Follow up with ENT as scheduled (4) Eosinophilia: Code(s): D72.19 - Other eosinophilia Category: Medical Plan: He still had (+)?eosinophilia on his most recent labs; he has been noted to have eosinophilia consistently on his previous labs - may be related to his allergies Patient is now seeing ENT for further evaluation and management; he was advised also of the consideration of seeing an senior computer specialist in the future if this persists (5) Vitamin D deficiency: Code(s): E55.9 - Vitamin D deficiency, unspecified Category: Medical Plan: Continue OTC Vitamin D3 1000 units QD (6) GERD without esophagitis: Code(s): K21.9 - Gastro-esophageal reflux disease without esophagitis Category: Medical Plan: Dietary restrictions reinforced Continue Famotidine 40 mg BID as needed (7) Erectile dysfunction: Code(s): N52.9 - Male erectile dysfunction, unspecified Category: Medical Qualifiers: Erectile dysfunction type: unspecified Qualified Code(s): N52.9 - Male erectile dysfunction, unspecified Plan: Continue Tadalafil 5 mg QD (8) Mood disorder: Code(s): F39 - Unspecified mood [affective] disorder Category: Medical Plan: Patient has OCD in addition to his mood disorder/depression Continue Citalopram at 60 mg daily, Bupropion XL 300 mg daily in AM and Olanzapine 10 mg daily at bedtime Follow-up with Psychiatry as scheduled (9) Obesity (BMI 30-39.9): Code(s): E66.9 - Obesity, unspecified Category: Medical Plan: Reinforced diet/exercise as tolerated /lose weight - he has gained about 17 pounds since his last visit Plan Follow up in 4 months Orders: Orders Lipid Panel 4 Months E78.00 - Pure hypercholesterolemia, unspecified UA CC w/rflx Micro + Cult 4 Months R30.0 - Dysuria Hemoglobin A1c 4 Months R73.01 - Impaired fasting glucose Complete Blood Count Auto Diff 4 Months D64.9 - Anemia, unspecified Comprehensive [place]. Panel Fast 4 Months E78.00 - Pure hypercholesterolemia, unspecified TSH reflex Free T4 4 Months E78.00 - Pure hypercholesterolemia, unspecified Vitamin D 25-OH Total 4 Months E55.9 - Vitamin D deficiency, unspecified
== END 2024-11-04 17:22 | disposition home or self-care (01) ==
LOC: HO.HMCH 16:48
PROVIDERS: PCP Internal Medicine; Visit Provider Internal Medicine
DX: E78.00 Pure hypercholesterolemia, unspecified (principal); R73.01 Impaired fasting glucose; Z68.37 Body mass index [BMI] 37.0-37.9, adult; E66.9 Obesity, unspecified; J30.9 Allergic rhinitis, unspecified; D72.19 Other eosinophilia; E55.9 Vitamin D deficiency, unspecified; K21.9 Gastro-esophageal reflux disease without esophagitis; N52.9 Male erectile dysfunction, unspecified; F39 Unspecified mood [affective] disorder

== ENCOUNTER → 2024-11-04 16:47 | Outpatient (BNVA) | payer MEDICARE, MEDICAID, SELFPAY | PROVIDERS: PCP Internal Medicine; Visit Provider Internal Medicine | DX: E78.00 Pure hypercholesterolemia, unspecified (principal); R73.01 Impaired fasting glucose; J30.9 Allergic rhinitis, unspecified; D72.19 Other eosinophilia; E55.9 Vitamin D deficiency, unspecified; K21.9 Gastro-esophageal reflux disease without esophagitis; N52.9 Male erectile dysfunction, unspecified; F39 Unspecified mood [affective] disorder; E66.9 Obesity, unspecified; Z68.33 Body mass index [BMI] 33.0-33.9, adult; Z71.3 Dietary counseling and surveillance | CPT/HCPCS: 96127; 99212 ==

== ENCOUNTER 2025-01-05 09:54 | Day surgery (SDC) | payer MEDICARE, MEDICAID, SELFPAY ==
--- OUTSIDE RECORDS SUMMARY | 2024-12-02 15:06 | XMS_ITS ---
Author Organization [facility] Address [address] [place] [id number] Care Team Providers Care Tmh Teacher Name Role Phone Jason Abraham MD Primary Care Provider Arsenio Frey Unavailable [phone] REASON FOR VISIT with balloon, dysphagia Encounters Encounter Location Date Provider Diagnosis [facility] Outpatient [address] [place] [phone] 07/28/2024 Arsenio Oreilly Esophageal ring K2 2.2 ; Hiatal hernia K44.9 and Dysphagia R13.10 Assessments Encounter Date Diagnosis (ICD Code) Assessment Notes Treatment Notes Treatment Clinical Notes Section Notes 07/28/2024 Esophageal ring (ICD-10 - K22.2) 07/28/2024 Hiatal hernia (ICD-10 - K44.9) 07/28/2024 Dysphagia (ICD-10 - R13.10) Plan Of Treatment Next Appt Details Provider Name:Arsenio Oreilly , 01/05/2025 12:20:00 PM, [address] [place] [address], [phone], Progress Notes * GARETH HOYOS CDOB:[birth year] (64 yo M)Acc No.[id number]:07/28/2024 EGD/MAC Patient:?GARETH HOYOS Provider:?Arsenio Oreilly MD :1960???Age:64 Y???Sex:Male Jorge Luis e:07/28/2024 Address:[address] [place] [address] [address], [place], [id number] Pcp:Jason Abraham MD Subjective: * Chief Complaints: * ???1. With balloon, dysphagi a. * Medical History:? Objective: * Vitals:? Assessment: * Assessment: 1.?Esophageal ring - K22.2 ( Primary)???2.?Hiatal hernia - K44.9???3.?Dysphagia - R13.10??? Plan: * Treatment: * Procedure Codes:?29121 ESOPH ENDOSCOPY, DILATION * * The named appointment provid er may or may not be the originator of this progress note, and it is not deemed complete until electronically signed by the appointment provider. Sign off status: Pending * Provider:?Arsenio Oreilly MD Date:? 025 Generated for Brittany skinner/Omkar/Raniitting on:?12/02/2024 03:06 PM EDT
[2025-01-01 14:04] VITALS: BMI 32.3
--- NOTE | 2025-01-02 12:43 | HO.ANESPROP2 ---
Documented by User: Gia Miller NP 01/02/25 12:45 HPI - Anesthesia Eval Consult details Narrative: 64yo M for Colonoscopy [facility] Active Problems Active Problems: All Active Problems Low back pain (Acute) Hip pain (Acute) Inguinal hernia of right side without obstruction or gangrene (Acute) Sinus infection (Acute) Upper respiratory tract infection (Acute) Left otitis externa (Acute) Left acute otitis media (Acute) Productive cough (Acute) Congestion of nasal sinus (Acute) Annual physical exam (Acute) Onychomycosis (Acute) Allergic rhinitis (Acute) Acute sinusitis (Acute) Left ear pain (Acute) Rash and nonspecific skin eruption (Acute) Atopic dermatitis (Acute) Otitis media (Acute) High cholesterol (Acute) Bronchitis (Acute) Gastroenteritis (Acute) Cough (Acute) Thrush, oral (Acute) Upper respiratory tract infection (Acute) Erectile dysfunction (Acute) Mood disorder (Acute) Dyslipidemia (Acute) Impaired fasting glucose (Acute) Anxiety and depression (Acute) Oral thrush (Acute) Obesity (BMI 30-39.9) (Acute) Depression (Acute) Vitamin D deficiency (Acute) GERD without esophagitis (Acute) Eosinophilia (Acute) Allergic rhinitis (Acute) Pure hypercholesterolemia (Acute) Past Medical History Medical History Erectile dysfunction Mood disorder Dyslipidemia Impaired fasting glucose Anxiety and depression OCD (obsessive compulsive disorder) Gastritis and duodenitis Oral thrush Obesity (BMI 30-39.9) Depression Vitamin D deficiency GERD without esophagitis Eosinophilia Allergic rhinitis Pure hypercholesterolemia Family History Family History Father No problems noted. Mother Diabetes Hypertension Substance abuse Other Mental health problem Surgical History Surgical History History of toe surgery History of esophagogastroduodenoscopy (EGD) History of colonoscopy History of inguinal hernia repair History of Problems with Anesthesia: No Social History Social History Housing: Apartment Are you a primary skin care instructor to a significant other at home: No Do you presently have visiting nurse or other home services: No Alcohol intake: current Alcohol intake frequency: 0-2 drinks per day Patient Tobacco Use Status: Former Tobacco user e-Cigarette/Vaping Use: Never Used Second Hand Smoke Exposure: No Use of substances other than those prescribed or required for medical reasons: No Have you been hit, kicked, punched, or otherwise hurt by someone within the past year? If so, by whom?: No Are you DNR?: No Advance Directives: Yes Advance Directives Information Provided: No Advance Directives on File: Yes Advance Directives Date on File: 01/05/25 Poor oral hygiene: No service: No Current occupational status: unemployed Cognitive needs: No Hearing needs: No Vision needs: Yes (glasses) Meds Allergies Allergy/AdvReac Type Severity Reaction Status Date / Time Sulfa (Sulfonamide AdvReac Severe joint Verified 11/04/24 17:03 Antibiotics) pains, difficulty breathing, dehydration? cefuroxime AdvReac Intermediate shortness Verified 11/04/24 17:03 of breath,dehydration clavulanic acid (From AdvReac Intermediate diarrhea Verified 11/04/24 17:03 AUGMENTIN) Home Medications ?Medication ?Instructions ?Recorded ?Confirmed ?Last Taken ?Type Lactobacillus 1 cap PO DAILY 04/16/20 11/04/24 Unknown History acidophil,plantar-Bifido no.7 25 billion cell capsule (up4 Probiotics Adult 50 Plus) citalopram 20 mg tablet 20 mg PO DAILY 04/16/20 01/05/25 07/28/24 History citalopram 40 mg tablet 40 mg PO DAILY 04/16/20 01/05/25 07/28/24 History multivitamin 1 tab PO DAILY 04/16/20 01/05/25 Unknown History olanzapine 10 mg tablet 10 mg PO BEDTIME PRN Anxiety 04/16/20 01/05/25 Unknown History bupropion HCl 300 mg 24 hr tablet, 300 mg PO QAM 08/14/23 01/05/25 07/28/24 History extended release Exam Height,Weight and Vital Signs: Height 5 ft 10 in Weight 102.058 kg Assessment and Plan Assessment Anesthesia Assessment: Chart Reviewed Final Anesthetic Review History of Problems with Anesthesia: No Documented by User: Juanita Cowan MD 01/05/25 12:32 [facility] Past Medical History Medical History Erectile dysfunction Mood disorder Dyslipidemia Impaired fasting glucose Anxiety and depression OCD (obsessive compulsive disorder) Gastritis and duodenitis Oral thrush Obesity (BMI 30-39.9) Depression Vitamin D deficiency GERD without esophagitis Eosinophilia Allergic rhinitis Pure hypercholesterolemia Family History Family History Father No problems noted. Mother Diabetes Hypertension Substance abuse Other Mental health problem Family history of problems with anesthesia: No Surgical History Surgical History History of toe surgery History of esophagogastroduodenoscopy (EGD) History of colonoscopy History of inguinal hernia repair Social History Social History Housing: Apartment Are you a primary skin care instructor to a significant other at home: No Do you presently have visiting nurse or other home services: No Alcohol intake: current Alcohol intake frequency: 0-2 drinks per day Patient Tobacco Use Status: Former Tobacco user e-Cigarette/Vaping Use: Never Used Second Hand Smoke Exposure: No Use of substances other than those prescribed or required for medical reasons: No Have you been hit, kicked, punched, or otherwise hurt by someone within the past year? If so, by whom?: No Are you DNR?: No Advance Directives: Yes Advance Directives Information Provided: No Advance Directives on File: Yes Advance Directives Date on File: 01/05/25 Poor oral hygiene: No service: No Current occupational status: unemployed Cognitive needs: No Hearing needs: No Vision needs: Yes (glasses) Meds Allergies Allergy/AdvReac Type Severity Reaction Status Date / Time Sulfa (Sulfonamide AdvReac Severe joint Verified 11/04/24 17:03 Antibiotics) pains, difficulty breathing, dehydration? cefuroxime AdvReac Intermediate shortness Verified 11/04/24 17:03 of breath,dehydration clavulanic acid (From AdvReac Intermediate diarrhea Verified 11/04/24 17:03 AUGMENTIN) Home Medications ?Medication ?Instructions ?Recorded ?Confirmed ?Last Taken ?Type Lactobacillus 1 cap PO DAILY 04/16/20 11/04/24 Unknown History acidophil,plantar-Bifido no.7 25 billion cell capsule (up4 Probiotics Adult 50 Plus) citalopram 20 mg tablet 20 mg PO DAILY 04/16/20 01/05/25 07/28/24 History citalopram 40 mg tablet 40 mg PO DAILY 04/16/20 01/05/25 07/28/24 History multivitamin 1 tab PO DAILY 04/16/20 01/05/25 Unknown History olanzapine 10 mg tablet 10 mg PO BEDTIME PRN Anxiety 04/16/20 01/05/25 Unknown History bupropion HCl 300 mg 24 hr tablet, 300 mg PO QAM 08/14/23 01/05/25 07/28/24 History extended release Exam Airway Mallampati Class: II TM Dist: >3cm Neck ROM: Full Heart: rrr Assessment and Plan Assessment Anesthesia Assessment: Anesthesia Plan Discussed Final Anesthetic Review Family History of Problems with Anesthesia: No NPO: Yes ASA Class: III Final Preanesthetic Review: No Changes in Pt Med Stat, Meds/Allgs Chart Reviewed, Consent Obtained/Reviewed and Anes Risks/Benef Reviewed Patient Risk: Intermediate Procedure Risk: Low Anesthetic Plan Anesthetic Plan: MAC: Disposition: Standard PACU
--- NOTE | ~2025-01-05 | CT_ITS ---
CLINICAL HISTORY: Incomplete colonoscopy to the ascending colon CT abdomen and pelvis without contrast Comparison: None Findings: Examination is limited by without IV and oral contrast. Lung bases are clear. No pleural effusion. Liver, Pancreas, Spleen and both adrenals show normal size, shape and attenuation on present unenhanced scan. No CBD dilatation. Gallstones in the gallbladder. Both kidneys reveal normal in size, shape, position and attenuation. No kidney stone. No hydronephrosis. The IVC, aorta and portal vein are within normal position and caliber. Atherosclerosis calcification of the aorta. No evidence of retroperitoneal lymphadenopathy or ascites. The visible parts of the bowel loops show no obvious mass lesions or wall thickening. Colonic diverticulosis. Appendix appears normal. Rectal tube. Urinary bladder reveals normal lumen and marks. The pelvic organs are unremarkable. Visualized osseous structures appear unremarkable. No lytic or sclerotic bony lesion. IMPRESSION: No acute findings on the current noncontrast CT. Cholelithiasis. Colonic diverticulosis. This document has been electronically signed by: Yg Rodriguez MD on 01/05/2025 17:20:06
[2025-01-05 10:41] VITALS: BP 136/86; PULSE 70; RESP 16; TEMP 36.4; O2SAT 96
[2025-01-05] MEDS: Lactated Ringers 1,000 ML 100 ML IVCONT (10:50)
[2025-01-05 13:00] VITALS: BP 88/55; PULSE 57; RESP 20; TEMP 36.1; O2SAT 97
--- NOTE | 2025-01-05 13:05 | PM.OP ---
Brief Operative Note Date of Service: 01/05/25 Pre-op diagnosis: Screening Post-op diagnosis: other (Diverticulosis) Procedure: Colonoscopy to the ascending colon Surgeon: Arsenio Oreilly MD Was an Solar Project Coordination Specialist used for this Procedure?: No Estimated blood loss (mL): 0 Pathology: none sent Condition: stable Disposition: PACU
[2025-01-05 13:15] VITALS: BP 133/86; PULSE 64; RESP 16; TEMP 36.2; O2SAT 97
--- NOTE | 2025-01-05 20:05 | OP_ITS ---
DATE OF SERVICE: 01/05/2025 SURGEON: Arsenio Oreilly MD INDICATIONS: The patient presents for evaluation of colorectal cancer screening. Full consent was obtained from him for this, including risks of bleeding and perforation. PREOPERATIVE DIAGNOSIS: Colorectal cancer screening. POSTOPERATIVE DIAGNOSIS: PROCEDURE PERFORMED: Colonoscopy to the ascending colon. ESTIMATED BLOOD LOSS: COMPLICATIONS: ANESTHESIA: Medication used, monitored anesthesia care. ASSISTANTS: SPECIMENS: POSTOPERATIVE DIAGNOSES: Colorectal cancer screening, diverticulosis, internal hemorrhoids, colonoscopy to the ascending colon. DESCRIPTION OF PROCEDURE: The patient was placed in the left lateral decubitus position. The digital rectal exam revealed no abnormalities. The Olympus video pediatric colonoscope was entered into the rectum and advanced to the level of the ascending colon and what I felt was the ileocecal valve with the assistance of abdominal wall pressure and turning the patient to the supine position. However, despite abdominal wall pressure as well as turning him on to his back, I was unable to enter the cecum. At times, I was able to visualize portions of the cecal pouch with appendiceal orifice, which appeared normal, but I could not enter the cecum completely. The scope was then slowly withdrawn assessing all mucosal surfaces carefully. Preparation was excellent. I did not visualize any sign of polyps, colitis, nor angiodysplasia. There was a mild amount of sigmoid diverticulosis. In the rectum, scope was retroflexed visualizing internal hemorrhoids, but no other pathology. The rectal mucosa appeared normal. The scope was straightened out and withdrawn from the patient. He tolerated the procedure well and was returned to recovery area in stable condition. IMPRESSION: 1. Diverticulosis. 2. Internal hemorrhoids. 3. Colonoscopy to the ascending colon. PLAN: We shall try to arrange for a CT colonography today to complete his screening. If that is negative, I would then recommend a repeat colonoscopy in 5 years for screening rather than 10 since we were unable to complete the exam with colonoscopy. He was advised to continue his famotidine for his reflux. He was advised to let me know if he develops any recurrent dysphagia in relation to the previous esophageal dilation he had earlier this year. MD CHARLA Osorio/MEGHAL / [phone] [employer]
== END 2025-01-05 14:24 | disposition home or self-care (01) ==
PROVIDERS: PCP Internal Medicine; Visit Provider Internal Medicine
PROC: 0DJD8ZZ Inspection of Lower Intestinal Tract, Via Natural or Artificial Opening Endoscopic (ICD-10-PCS; CPT 45378; principal; 2025-01-05 11:20)
DX: Z12.11 Encounter for screening for malignant neoplasm of colon (principal); K57.30 Diverticulosis of large intestine without perforation or abscess without bleeding; K64.8 Other hemorrhoids; K21.9 Gastro-esophageal reflux disease without esophagitis; R13.10 Dysphagia, unspecified; K80.20 Calculus of gallbladder without cholecystitis without obstruction; Z79.899 Other long term (current) drug therapy
CPT/HCPCS: G0121; 74261; J2003; J2704; J3010

== ENCOUNTER → 2025-01-05 12:20 | Outpatient (BNV) | payer MEDICARE, MEDICAID, SELFPAY | PROVIDERS: PCP Internal Medicine; Visit Provider Nuclear Medicine | DX: K80.20 Calculus of gallbladder without cholecystitis without obstruction (principal); K57.30 Diverticulosis of large intestine without perforation or abscess without bleeding | CPT/HCPCS: 74261 ==

== ENCOUNTER 2025-03-06 10:07 | Outpatient (REF) | payer MEDICARE, MEDICAID, SELFPAY ==
--- OUTSIDE RECORDS SUMMARY | 2024-07-28 05:30 | XMS_ITS ---
Author Organization [facility] Address [address] [place] [phone] Care Team Providers Care Postal Worker Name Role Phone Jason Abraham MD Primary Care Provider Arsenio Fery Unavailable [phone] REASON FOR VISIT with balloon, dysphagia Encounters Encounter Location Date Provider Diagnosis [facility] [place] [address] [place] [id number] 07/28/2024 Arsenio Oreilly Esophageal ring K2 2.2 ; Hiatal hernia K44.9 and Dysphagia R13.10 Assessments Encounter Date Diagnosis (ICD Code) Assessment Notes Treatment Notes Treatment Clinical Notes Section Notes 07/28/2024 Esophageal ring (ICD-10 - K22.2) 07/28/2024 Hiatal hernia (ICD-10 - K44.9) 07/28/2024 Dysphagia (ICD-10 - R13.10) Plan Of Treatment No Information Progress Notes * GARETH HOYOS CDOB:[birth year] (65 yo M)Acc No.[id number]:07/28/2024 EGD/MAC Patient: Joann KEVONGLORIA GARETH Segundo Provider: Himanshu Oreilly MD :1960 A ge:64 Y S ex:Male Date:07/28/2024 Address:[address] [place] [address] [address], [place], [place] Pcp:Jason Abraham MD Subjective: * Chief Complaints: [...] 07/28/2024 Generated for Brittany skinner/Omkar/Raniitting on: 0 03/06/2025 11:30 AM EDT
--- OUTSIDE RECORDS SUMMARY | 2025-01-05 07:20 | XMS_ITS ---
Author Organization [facility] Address [address] [place] [phone] Care Team Providers Care Clinical Lab Clerk Name Role Phone Jarad DELGADO, Jason Primary Care Provider Arsenio Frey [phone] REASON FOR VISIT screening Encounters Encounter Location Date Provider Diagnosis [facility] Outpatient [address] [place] [phone] 01/05/2025 Arsenio Oreilly Plan Of Treatment No Information Progress Notes * GARETH HOYOS CDOB:[birth year] (65 yo M)Acc No.[id number]:01/05/2025 COLON WITH MAC Patient: Joann LUNDGLORIA GARETH Segundo Provider: Himanshu Oreilly MD :1960 A ge:64 Y S ex:Male Date:01/05/2025 Address:[address] [place] [address] [place] [address] Pcp:Jason Abraham MD Subjective: * Chief Complaints: * 1 . Screening. * Medical History: Objective: * Vitals: Assessment: Plan: * Treatment: * * The named appointment provid er may or may not be the originator of this progress note, and it is not deemed complete until electronically signed by the appointment provider. Sign off status: Pending * Provider: Himanshu Oreilly MD Date: 0 01/05/2025 Generated for Brittany ng/Fayukig/eTransmitting on: 03/06/2025 11:30 AM EDT
[2025-03-06 10:21] LABS: MANUAL DIFF FLAG NO
[2025-03-06 11:00] LABS: Hematocrit 41.9 % (42.0-52.0); Hemoglobin 14.7 g/dl (14.0-18.0); Imm Gran Abs Auto 0.02 X10*3/uL (0.00-0.03); Imm Gran Pct Auto 0.3 % (0.0-0.4); Lymphocytes Absolute Auto 1.8 X10*3/uL (1.2-4.9); Mean Corpuscular HGB Conc 35.1 g/dl (31.0-36.0); Mean Corpuscular Hemoglobin 32.0 pg (27.0-33.0); Mean Corpuscular Volume 91.1 fL (80.0-98.0); NRBC Abs Auto 0.000 X10*3/uL (0.0-0.012); NRBC Pct Auto 0.0 /100WBC (0.0-0.2); Platelet Count 196 X10*3/uL (160-400); Red Blood Count 4.60 X10*6/uL (4.60-5.80); White Blood Count 6.2 X10*3/uL (4.8-10.8)
[2025-03-06 11:03] LABS: Appearance Urine Clear; Glucose Urine UA Negative (Negative); PH 6.5 (5.0-9.0); Specific Gravity - Urine 1.015 (1.005-1.025)
[2025-03-06 11:16] LABS: Hemoglobin A1C 138.7329 umol/L; Total Hemoglobin (HGBA1C) 3658.0398 umol/L
--- OUTSIDE RECORDS SUMMARY | 2025-03-06 11:30 | XMS_ITS | Clinical Summary ---
Author Organization [employer] Address [address] [place] [address] Care Team Providers Care Branch Office Administrator Name Role Phone Unavailable Primary Care Provider [...] MAX 1 DOSE PER 24HRS 09/22/2021 Active azithromycin (Zithromax) 250 MG tablet Take (2) tabs 1st day; take (1) tab next 4 days. 6 tablet 12/03/2024 Active Active Problems No known active problems Social History Tobacco Use Types Packs/Day Years [...] Sign Reading Time Taken Comments Blood Pressure 138/88 11/05/2024 8:05 AM EDT Pulse 91 10/23/2024 1:11 PM EDT Temperature - - Respiratory Rate - - Oxygen Saturation - - Inhaled Oxygen Concentration - - Weight - - Height - - Body Mass Index - - Plan of Treatment Upcoming Encounters Date Type Department Care Team (Late st Contact Info) Description 03/17/2025 3:00 PM EDT Office Visit [facility] ADULT DENTAL [address] [place] [address] Mukund Oliver, DDS [address] [place] [address] 04/30/2025 1:00 PM EST Office Visit [facility] DENTAL [address] [place] [address] Susu Aden [address] [place] [address] Health Maintenance Due Date Last Done Comments CT Colonography 1959 Colonoscopy 1959 Colorectal Cancer Screening 1959 Dental X-Ray: Full Mouth 1959 Depression Screening 1959 FIT DNA/Cologuard 1959 FIT 1959 FOBT 1959 Lipid Panel 1959 SDOH Screening 1959 Sigmoidoscopy 1959 Alcohol/Substance Use Screening 1971 Hepatitis C Screening 1977 Zoster Vaccines (1 of 2) 2009 Dental Oral Exam 01/04/2023 07/06/2022 COVID-19 Vaccine ( season) 2025 03/23/2024, 04/18/2023, 03/21/2022, Additional history exists Influenza Vaccine (#1) 2025 , 04/18/2023, 03/21/2022, Additional history exists Dental Prophylaxis 04/26/2025 10/23/2024, 1 , 01/08/2023, Additional history exists Dental X-Ray: Bitewings 10/24/2025 10/24/19, 09/21/2023, 05/29/2023, Additional history exists Tobacco Screening 12/03/2025 12/03/2024 DTaP/Tdap/Td Vaccines (2 - Td or Tdap) 03/28/2029 03/28/2019, 10/07/2003 Hepatitis B Vaccines Completed 04/13/2004, 11/11/2003, 10/07/2003 Pneumococcal Vaccine: 50+ Years Completed 03/29/2022, 03/17/2021 RSV Patients and Patients Aged 60 years or older Completed 04/18/2023 HIB Vaccines Aged Out No longer eligi [...] patient's age to complete this topic Meningococcal B Vaccine Aged Out No l onger eligible based on patient's age to complete [...] Associated Diagnosis Comments PROPHYLAXIS - ADULT Routine 10/23/2024 1 :00 PM EDT BITEWINGS - 4 RADIOGRAPHIC IMAGES Routine 10/23/2024 1:00 PM EDT PERIODIC ORAL EVALUATION - ESTABLISHED PATIENT Routine 07/06/2022 5:00 PM EST from Last 3 Months or Most Recently Relevant to Health Maintenance Insurance DENTAL - [place] DDS ADULT
--- OUTSIDE RECORDS SUMMARY | 2025-03-06 11:32 | XMS_ITS | Encounter Summary ---
Author Organization [employer] Address [address] [facility] [address] [place] [address] Care Team Providers Care Pe Electrical Engineer Name Role Phone Unavailable Primary Care Provider Unavailabl e Encounter Details Date Type Department Care Team (Latest Contact Info) Description 04/11/2021 Abstract [facility] CONVERSIONS Dental, Provider, DDS Social [...] Description 03/17/2025 3:00 PM EDT Office Visit [facility] ADULT DENTAL [address] [place] [address] Mukund Oliver, DDS [address] [place] [address] 04/30/2025 1:00 PM EST Office Visit [facility] [address] [place], [place] [phone] Susu Aden [address] [place], [place] [phone] documented as of this encounter Visit Diagnoses Not on filedocumented in this encounter
--- OUTSIDE RECORDS SUMMARY | 2025-03-06 11:32 | XMS_ITS | Encounter Summary ---
Author Organization [employer] Address [address] [facility] [address] [place] [address] Care Team Providers Care Craft Worker Name Role Phone Unavailable Primary Care Provider Unavailabl e Encounter Details Date Type Department Care Team (Latest Contact Info) Description 11/12/2020 Abstract [facility] CONVERSIONS Dental, Provider, DDS Social History Tobacco [...] 3:00 PM EDT Office Visit [facility] ADULT DENTAL [address] [place] [address] Mukund Oliver, DDS [address] [place] [address] 04/30/2025 1:00 PM EST Office Visit [facility] [address] [place], [place] [phone] Susu Aden [address] [place], [place] [phone] documented as of this encounter Visit Diagnoses Not on filedocumented in this encounter
--- OUTSIDE RECORDS SUMMARY | 2025-03-06 11:32 | XMS_ITS | Encounter Summary ---
Author Organization [employer] Address [address] [facility] [address] [place] [address] Care Team Providers Care Event Coordinator Marketing And Sales Name Role Phone Unavailable Primary Care Provider Unavailabl e Encounter Details Date Type Department Care Team (Latest Contact Info) Description 10/08/2018 Abstract [facility] CONVERSIONS Dental, Provider, DDS [...] 3:00 PM EDT Office Visit [facility] ADULT DENTAL [address] [place] [address] Mukund Oliver, DDS [address] [place] [address] 04/30/2025 1:00 PM EST Office Visit [facility] [address] [place], [place] [phone] Susu Aden [address] [place], [place] [phone] documented as of this encounter Visit Diagnoses Not on filedocumented in this encounter
[2025-03-06 11:54] LABS: Alanine Aminotransferase 46 U/L (0-40); Albumin Level 4.3 g/dL (3.5-5.0); Alkaline Phosphatase 72 U/L (39-117); Anion Gap 13 (12-20); Aspartate Amino Transferase 27 U/L (5-37); Blood Urea Nitrogen 22 mg/dL (9-16); Calcium 9.3 mg/dL (8.4-10.2); Carbon Dioxide 27 mmol/L (22-29); Chloride 106 mmol/L (96-108); Cholesterol 209 mg/dL (<200); Estimated Glomerular Filt Rate 59; HDL Cholesterol 42 mg/dL (>40); Potassium 4.0 mmol/L (3.3-5.1); Sodium 142 mmol/L (135-145); Total Protein 6.8 g/dL (6.5-8.0); Triglycerides 285 mg/dL (<150)
== END 2025-03-06 10:08 | disposition home or self-care (01) ==
LOC: HO.LAB 10:07
PROVIDERS: PCP Internal Medicine; Visit Provider Internal Medicine
DX: R73.01 Impaired fasting glucose (principal); E78.00 Pure hypercholesterolemia, unspecified; D64.9 Anemia, unspecified; E55.9 Vitamin D deficiency, unspecified; R30.0 Dysuria
CPT/HCPCS: 36415; 80053; 80061; 81003; 82306; 83036; 84443; 85025

== ENCOUNTER 2025-03-09 13:01 | Outpatient (AMB) | payer MEDICARE, MEDICAID, SELFPAY ==
--- OUTSIDE RECORDS SUMMARY | 2024-07-28 05:30 | XMS_ITS ---
Author Organization [facility] Address [address] [place] [phone] Care Team Providers Care Imaging Manager Name Role Phone Jason Abraham MD Primary Care Provider Arsenio Frey Unavailable [phone] REASON FOR VISIT with balloon, dysphagia Encounters Encounter Location Date Provider Diagnosis [facility] [place] Outpatient [address] [place] [id number] 07/28/2024 Arsenio Oreilly Esophageal ring K2 2.2 ; Hiatal hernia K44.9 and Dysphagia R13.10 Assessments Encounter Date Diagnosis (ICD Code) Assessment Notes Treatment Notes Treatment Clinical Notes Section Notes 07/28/2024 Esophageal ring (ICD-10 - K22.2) 07/28/2024 Hiatal hernia (ICD-10 - K44.9) 07/28/2024 Dysphagia (ICD-10 - R13.10) Plan Of Treatment No Information Progress Notes * GARETH HOYOS CDOB:[birth year] (65 yo M)Acc No.[id number]:07/28/2024 EGD/MAC Patient: Joann KEVONGLORIA GARETH Segundo Provider: Himanshu Oreilly MD :1960 A ge:64 Y S ex:Male Date:07/28/2024 Address:[address] [place] [address] [address], [place], [place] Pcp:Jason Abraham MD Subjective: * Chief Complaints: * 1 . With balloon, dysphagia. * Medical History: Objective: * Vitals: Assessment: * Assessment: 1. E sophageal ring - K22.2 (Primary) 2 . H iatal hernia - K44.9 3 . D ysphagia - R13.10 Plan: * Treatment: * Procedure Codes: 4 3249 ESOPH ENDOSCOPY, DILATION * * The named appointment provid er may or may not be the originator of this progress note, and it is not deemed complete until electronically signed by the appointment provider. Sign off status: Pending * Provider: Himanshu Oreilly MD Date: 0 07/28/2024 Generated for Brittany skinner/Omkar/Raniitting on: 0 03/09/2025 06:04 PM EDT
--- OUTSIDE RECORDS SUMMARY | 2025-01-05 07:20 | XMS_ITS ---
Author Organization [facility] Address [address] [place] [phone] Care Team Providers Care Soil Expert Name Role Phone Jarad DELGADO, Jason Primary Care Provider Arsenio Frey [phone] REASON FOR VISIT screening Encounters Encounter Location Date Provider Diagnosis [facility] Outpatient [address] [place] [id number] 01/05/2025 Arsenio Oreilly Plan Of Treatment No Information Progress Notes * GARETH HOYOS CDOB:[birth year] (65 yo M)Acc No.[id number]:01/05/2025 COLON WITH MAC Patient: Joann LUNDGLORIA GARETH Segundo Provider: Himanshu Oreilly MD :1960 A ge:64 Y S ex:Male Date:01/05/2025 Address:[address] [place] [address] [place] [address] [facility] Pcp:Jason Abraham MD Subjective: * Chief Complaints: [...] 0 01/05/2025 Generated for Brittany ng/Fayukig/eTransmitting on: 0 03/09/2025 06:04 PM EDT
[2025-03-09 13:03] VITALS: BP 122/90; PULSE 76; O2SAT 97; BMI 35.8
--- NOTE | 2025-03-09 13:03 | MHC.PC.OV ---
Vital Signs 03/09/25 13:03 Height 5 ft 10 in Weight 249 lb 4 oz BMI 35.8 BP 122/90 H Blood Pressure Location Lt brachial Position Sitting Pulse 76 Pulse Source Pulse Oximeter Pulse Oximetry (%) 97 Oxygen Delivery Method Room Air Intake Visit Reasons: hyperlipidemia, IFG, mood disorder, OCD Cake Icer And Packer Required: No Accompanied by: Self / Same As Patient Allergies Sulfa (Sulfonamide Antibiotics) Adverse Reaction (Severe, Verified 03/09/25 13:52) joint pains, difficulty breathing, dehydration? cefuroxime Adverse Reaction (Intermediate, Verified 03/09/25 13:52) shortness of breath,dehydration clavulanic acid (From AUGMENTIN) Adverse Reaction (Intermediate, Verified 03/09/25 13:52) diarrhea Medication List - Last Reconciled 03/09/25 by Jason Abraham MD atorvastatin 10 mg PO DAILY 90 days bupropion HCl XL 300 mg PO QAM citalopram 40 mg PO DAILY citalopram 20 mg PO DAILY famotidine 40 mg PO BID L.acidophil-L.plantar-Bifido 7 25 billion cell (up4 Probiotics Adult 50 Plus) 1 cap PO DAILY multivitamin 1 tab PO DAILY olanzapine 10 mg PO BEDTIME PRN ondansetron 4 mg PO Q8H PRN tadalafil 5 mg PO DAILY Tobacco use date assessed: 03/09/25 Fall risk assessment: No Falls in past year Last assessed Fall Risk: 03/09/25 Dental Screening Dental Screen Date: 03/09/25 Did you have a dental visit in the last 12 months?: Yes Did you have a dental problem in the last 6 months where you did not have access to dental care?: No Was dental information given to patient?: Patient has dentist HPI hyperlipidemia, IFG, mood disorder, OCD HPI Details Patient comes in today for his follow up visit Reports that he has been experiencing again some symptoms of increasing cough and congestion and mild sore throat for the past few days States that he has not had to take any antibiotics for almost a year now and he is attributing his recent symptoms to eating a slightly undercooked piece of steak a few days ago States that he feels okay otherwise He denies any headaches or dizziness; denies any fever Denies any chest pains, no increased SOB No nausea/vomiting, no abdominal pain No change in bowel habits noted Needs a couple of his Rx refilled He had his follow up labs done a few days ago - to discuss his results [facility] Medical History Erectile dysfunction Mood disorder Dyslipidemia Impaired fasting glucose Anxiety and depression OCD (obsessive compulsive disorder) Gastritis and duodenitis Oral thrush Obesity (BMI 30-39.9) Depression Vitamin D deficiency GERD without esophagitis Eosinophilia Allergic rhinitis Pure hypercholesterolemia Surgical History History of toe surgery History of esophagogastroduodenoscopy (EGD) History of colonoscopy History of inguinal hernia repair Family History Father No problems noted. Mother Diabetes Hypertension Substance abuse Other Mental health problem Social History Housing: Apartment Are you a primary medicare sales executive to a significant other at home: No Do you presently have visiting nurse or other home services: No Alcohol intake: current Alcohol intake frequency: 0-2 drinks per day Patient Tobacco Use Status: Former Tobacco user e-Cigarette/Vaping Use: Never Used Second Hand Smoke Exposure: No Advance Directives Date on File: 01/05/25 service: No Current occupational status: unemployed Cognitive needs: No Hearing needs: No Vision needs: Yes (glasses) Questionnaire Thrive Questionnaire Date Thrive assessed: 11/04/24 I am a: Patient What is your living situation today?: I have a steady place to live Within the past 12 months, did the food you bought not last and you didn't have the money to get more?: Sometimes True Within the past 12 months, did you worry whether your food would run out before you got money to buy more?: Sometimes True Do you have trouble paying for medicines?: Yes Do you have trouble getting transportation to medical appointments?: No Do you have trouble paying your heating and electricity bill?: Yes Do you have trouble taking care of your child, family member or friend?: No Do you have trouble with day-to-day activities such as bathing, preparing meals, shopping, managing finances, etc.?: No Are you currently unemployed and looking for a job?: I choose not to answer this question Are you interested in more education?: Yes Currently or been in a relationship where the following occur: Controlled Emotionally THRIVE Score: 4 AUDIT C Alcohol Use Questionnaire (AUDIT-C) 1. How often do you have a drink containing alcohol?: 2-3 times a week 2. How many drinks containing alcohol do you have on a typical day when you are drinking?: 1 or 2 3. How often do you have six or more drinks on one occasion?: Never Total Score: 3 Score Reviewed/Action Taken: Yes CHRISTINE-7 AMB Questionnaire CHRISTINE-7 Date CHRISTINE - 7 assessed: 11/04/24 (in treatment ) Source: Developed by Drs. Arsenio Mcdonough, Beverley Nesbitt, Charlie Hodge and colleagues, with an educational cameron from [employer]. Review of Systems Const Denies chills, Denies fatigue, Denies fever(s) and Denies headache(s) ENT Denies dysphagia, Denies dizziness, Denies otalgia, Denies headache(s), Denies neck pain, Denies odynophagia and Reports sore throat (mild) Card Denies chest pain, Denies irregular heart rhythm, Denies palpitations and Denies dyspnea Resp Reports chest congestion (mild), Reports cough (on and off - coughs up minimal whitish to clear phlegm at times), Denies dyspnea and Denies wheezing GI Denies abdominal pain, Denies constipation, Denies dysphagia, Denies heartburn, Denies diarrhea, Denies nausea, Denies odynophagia and Denies vomiting Denies difficulty urinating, Reports erectile dysfunction, Denies dysuria, Denies nocturia and Denies urinary frequency Musc Reports back pain (over the lower back), Reports arthralgias (over both hips, especially the right hip) and Denies neck pain Skin/Breast Denies rash Neuro Denies dizziness, Denies headache(s) and Denies paresthesias Endo Denies fatigue and Denies palpitations Aller/Immun Denies wheezing Physical exam (Primary Care) Vital Signs: Last Vital Signs Pulse 76 03/09/25 13:03 BP 122/90 H 03/09/25 13:03 Pulse Ox 97 03/09/25 13:03 Oxygen Delivery Method Room Air 03/09/25 13:03 BMI result Body Mass Index 35.8 Tobacco/Smoking Status: Tobacco use Status Tobacco use date assessed 03/09/25 03/09/25 13:06 Patient Tobacco Use Status Former Tobacco user 03/09/25 13:06 e-Cigarette/Vaping Use Never Used 03/09/25 13:06 Thrive Assessment: Date of Thrive Assessment Date Thrive assessed 11/04/24 03/09/25 13:06 Currently or been in a relationship where the following occur: Controlled Emotionally Const General: no acute distress and alert HENMT Ears: TM's normal bilaterally and EAC's normal Throat: Yes posterior oropharynx normal and Yes tonsils normal (no TP congestion) Neck Neck: Yes supple and No lymphadenopathy Thyroid: Thyroid normal Resp Auscultation: clear to auscultation bilaterally, no crackles, no rales, rhonchi (occasional) and no wheezes Cardio Rate: regular rate Rhythm: regular rhythm Heart sounds: no murmurs GI Palpation (GI): Soft to palpation and nontender Auscultation: normal bowel sounds General: Yes no CVA tenderness Back/Spine/Pelvis Back: no CVA tenderness Thoracic/Lumbar Spine: lumbar spinal tenderness (mild) Skin Rashes: no rashes Extrem General: Yes no clubbing, cyanosis or edema Right lower extremity: hip/thigh Details: tenderness Location: of the hip Location: posterolaterally Left lower extremity: hip/thigh Details: tenderness Location: of the hip Results Reviewed Results Reviewed: Laboratory Tests 08/22/24 03/06/25 03/06/25 09:24 10:18 10:21 WBC 6.2 Hgb 14.7 Hct 41.9 L Plt Count 196 Sodium 142 Potassium 4.0 Creatinine 1.22 Estimated GFR 59 Fasting Glucose 96 Hemoglobin A1c % 5.6 Calcium 9.3 AST 27 ALT 46 H Triglycerides 387 H 285 H Cholesterol 249 H 209 H LDL Cholesterol, Calc 128 H 110 H HDL Cholesterol 44 42 25-OH Vitamin D Total 36.8 TSH 1.36 Ur Specific Temperance 1.015 Urine Protein Negative Urine Glucose (UA) Negative Urine Blood Negative Urine Nitrite Negative Ur Leukocyte Esterase Negative Coding Level of Care Code Est Pt Level 4 (84800) Diagnoses Pure hypercholesterolemia E78.00 Impaired fasting glucose R73.01 Allergic rhinitis, unspecified seasonality, unspecified trigger J30.9 Allergic rhinitis seasonality: unspecified Allergic rhinitis trigger: unspecified Eosinophilia D72.19 Vitamin D deficiency E55.9 Upper respiratory tract infection, unspecified type J06.9 URI type: unspecified URI GERD without esophagitis K21.9 Erectile dysfunction, unspecified erectile dysfunction type N52.9 Erectile dysfunction type: unspecified Mood disorder F39 Obesity (BMI 30-39.9) E66.9 Assessment & Plan Assessment & Plan (1) Pure hypercholesterolemia: Code(s): E78.00 - Pure hypercholesterolemia, unspecified Category: Medical Plan: Results of his labs done a few days ago reviewed and discussed with patient - his cholesterol levels have improved slightly from previous Reinforced low cholesterol diet Continue Atorvastatin 10 mg QD for now but advised that we will need to increase his dose if his cholesterol numbers continue to stay high Will recheck his labs and fasting lipids in 4 months for follow-up (2) Impaired fasting glucose: Code(s): R73.01 - Impaired fasting glucose Category: Medical Plan: Reinforced low-calorie/low carb diet; exercise as tolerated His HgbA1c was normal at 5.6% on his recent labs; FBS was normal at 96 mg/dl on his labs done a few days ago Will recheck his FBS and HgbA1c in 4 months for follow up (3) Allergic rhinitis: Code(s): J30.9 - Allergic rhinitis, unspecified Category: Medical Qualifiers: Allergic rhinitis seasonality: unspecified Allergic rhinitis trigger: unspecified Qualified Code(s): J30.9 - Allergic rhinitis, unspecified Plan: Continue Cetirizine 10 mg QD PRN Follow up with ENT as scheduled (4) Eosinophilia: Code(s): D72.19 - Other eosinophilia Category: Medical Plan: He still had (+)?eosinophilia on his most recent labs; he has been noted to have eosinophilia consistently on his previous labs - may be related to his allergies Patient is now seeing ENT for further evaluation and management; he was advised also of the consideration of seeing an affiliate marketing specialist in the future if this persists (5) Vitamin D deficiency: Code(s): E55.9 - Vitamin D deficiency, unspecified Category: Medical Plan: Continue OTC Vitamin D3 1000 units QD (6) Upper respiratory tract infection: Code(s): J06.9 - Acute upper respiratory infection, unspecified Category: Medical Qualifiers: URI type: unspecified URI Qualified Code(s): J06.9 - Acute upper respiratory infection, unspecified Plan: Request, we will start him again empirically on Doxycycline 100 mg BID x 7 days (7) GERD without esophagitis: Code(s): K21.9 - Gastro-esophageal reflux disease without esophagitis Category: Medical Plan: Dietary restrictions reinforced Continue Famotidine 40 mg BID as needed (8) Erectile dysfunction: Code(s): N52.9 - Male erectile dysfunction, unspecified Category: Medical Qualifiers: Erectile dysfunction type: unspecified Qualified Code(s): N52.9 - Male erectile dysfunction, unspecified Plan: Continue Tadalafil 5 mg QD (9) Mood disorder: Code(s): F39 - Unspecified mood [affective] disorder Category: Medical Plan: Patient has OCD in addition to his mood disorder/depression Continue Citalopram at 60 mg daily, Bupropion XL 300 mg daily in AM and Olanzapine 10 mg daily at bedtime Follow-up with Psychiatry as scheduled (10) Obesity (BMI 30-39.9): Code(s): E66.9 - Obesity, unspecified Category: Medical Plan: Reinforced diet/exercise as tolerated /lose weight - he has gained about 17 pounds since his last visit Plan Follow up in 4 months Orders: Orders Complete Blood Count Auto Diff 4 Months D64.9 - Anemia, unspecified Comprehensive [place]. Panel Fast 4 Months E78.00 - Pure hypercholesterolemia, unspecified Lipid Panel 4 Months E78.00 - Pure hypercholesterolemia, unspecified Medications: Refilled famotidine 40 mg PO BID 180 tabs 3RF doxycycline hyclate 100 mg PO BID 14 caps 0RF 7 days J32.0 - Chronic maxillary sinusitis atorvastatin 10 mg PO DAILY 90 tabs 3RF 90 days
--- OUTSIDE RECORDS SUMMARY | 2025-03-09 18:04 | XMS_ITS | Patient Health Record ---
Author Organization [facility] Address [address] [address] Care Team Providers Care Historic Site Administrator Name Role Phone Jason Abraham MD Primary Care Provider Arsenio Frey [phone] Allergies Allergen (clinical drug ingredient) Drug/Non Drug Allergy documented on EMR Reaction Allergy Type Onset Date Status sulfamethoxazole / trimethoprim Bactrim Unknown Drug Allergy Active amoxicillin / clavulanate Augmentin Unknown Drug Allergy Active Results Component Value Reference Range Notes CT colonography Reviewed date:01/07/2025 12:40:53 AM Interpretation: Performing Lab: Notes/Report: [address] [address] [address] Scan Report Signed Patient: Gareth Judge MR#: [id number] : 1960 Acct:[id number] Age/Sex: 64 / M ADM Date: 01/05/25 Loc: .[facility] Attending Dr: Arsenio Oreilly MD Ordering Physician: Arsenio Oreilly MD Date of Service: 01/05/25 Procedure(s): CT colonography Accession Number(s): [id number] cc: Jason Abraham MD; Arsenio Oreilly MD Report Number: [id number]: Total DLP = 631.00 mGy-cm CLINICAL HISTORY: Incomplete colonoscopy to the ascending colon CT abdomen and pelvis without contrast Comparison: None Findings: Examination is limited by without IV and oral contrast. Lung bases are clear. No pleural effusion. Liver, Pancreas, Spleen and both adrenals show normal size, shape and attenuation on present unenhanced scan. No CBD dilatation. Gallstones in the gallbladder. Both kidneys reveal normal in size, shape, position and attenuation. No kidney stone. No hydronephrosis. The IVC, aorta and portal vein are within normal position and caliber. Atherosclerosis calcification of the aorta. No evidence of retroperitoneal lymphadenopathy or ascites. The visible parts of the bowel loops show no obvious mass lesions or wall thickening. Colonic diverticulosis. Appendix appears normal. Rectal tube. Urinary bladder reveals normal lumen and marks. The pelvic organs are unremarkable. Visualized osseous structures appear unremarkable. No lytic or sclerotic bony lesion. IMPRESSION: No acute findings on the current noncontrast CT. Cholelithiasis. Colonic diverticulosis. This document has been electronically signed by: Yg Rodriguez MD on 01/05/2025 17:20:06 Dictated By: Yg Rodriguez MD Signed By: <Electronically signed by Yg Rodriguez MD in OV> 01/05/251719 DD/ 19 TD/TT: 01/05/251719 Absorption And Adsorption Engineer: Reason For Referral No Information Medications Medication [...] Problem Screening for malignant neoplasm of colon (178940141) Encounter for screening for malignant neoplasm of colon (Z12.11) Active confirmed Problem Dysphagia (26398200) Dysphagia (R13.10) Active confirmed Problem 311659657 Esophageal ring (K22.2) Active confirmed Problem [id number] Esophageal dysphagia (R13.10) Active confirmed Vital Signs Temperature 98.4 degrees Fahrenheit 07/09/2024 Blood pressure diastolic 00 mm Hg 07/09/2024 Height 70 in 07/09/2024 Blood pressure systolic 000 mm Hg 07/09/2024 Weight 225 lbs 07/09/2024 BMI 32.28 kg/m2 07/09/2024 Procedures Procedure Date Ordered Date Performed Result Body Sit e COLONOSCOPY 08/03/2024 N/A Encounters Encounter Location Date Provider Diagnosis [facility] Out[facility] [address] [place] [address] [id number] 07/28/2024 Arsenio Oreilly Esophageal ring K22.2 ; Hiatal hernia K44.9 and Dysphagia R13.10 [facility] Outpatient [address] [place] [id number] 01/05/2025 Arsenio Oreilly [facility] [address] [place] [phone] 07/09/2024 Arsenio Oreilly Dysphagia R13.10 and Encounter for screening for malignant neoplasm of colon Z12.11 [facility] [address] [place] [phone] 06/10/2024 Arsenio Oreilly [facility] [address] [place] [id number] 07/24/2024 Arsenio Oreilly [facility] [address] [place] [id number] 08/03/2024 Arsenio Oreilly Colon cancer screening Z12.11 [facility] [address] [place] [phone] 01/06/2025 Arsenio Oreilly [facility] [address] [place] [phone] 01/06/2025 Arsenio Oreilly Assessments Encounter Date Diagnosis (ICD Code) Assessment [...] Start Date Coverage End Date MEDICARE OF [place] [address] [place] [address] [id number] GARETH JUDGE Self - patient is the insured MEDICAID OF [facility] [address] [place] [address] [id number] ROMAINGARETH CASTRO Self - patient is the insured Medical (General) History Medical History History ICD Code Denies [place],DM,CVA,Lung disease,renal dise ase GERD Gallstone seen on [...]
--- OUTSIDE RECORDS SUMMARY | 2025-03-09 18:04 | XMS_ITS | Encounter Summary ---
Author Organization [employer] Address [address] [place] [address] Care Team Providers Care Email Marketing Manager Name Role Phone Unavailable Primary Care Provider Unavailabl e Encounter Details Date Type Department Care Team (Latest Contact Info) Description 10/08/2018 Abstract [facility] CONVERSIONS Dental, Provider, DDS Social History [...] Description 03/17/2025 3:00 PM EDT Office Visit [facility] [address] [place] [address] Mukund Oliver, DDS [address] [place] [address] 04/30/2025 1:00 PM EST Office Visit [facility] [address] [place], [place] [phone] Susu Aden [address] [place], [place] [phone] documented as of this encounter Visit Diagnoses Not on filedocumented in this encounter
--- OUTSIDE RECORDS SUMMARY | 2025-03-09 18:04 | XMS_ITS | Clinical Summary ---
Author Organization [employer] Address [address]t [place] [address] Care Team Providers Care Director Summer Sessions Name Role Phone Unavailable Primary Care Provider [...] Description 03/17/2025 3:00 PM EDT Office Visit [facility] [address] [place] [address] Mukund Oliver, DDS [address] [place] [address] 04/30/2025 1:00 PM EST Office Visit [facility] [address] [place] [address] Susu Aden [address] [place] [address] Health Maintenance Due Date Last Done Comments [...]
--- OUTSIDE RECORDS SUMMARY | 2025-03-09 18:04 | XMS_ITS | Encounter Summary ---
Author Organization [employer] Address [address] [facility] [address]t [place] [address] Care Team Providers Care Production Posting Clerk Name Role Phone Unavailable Primary Care Provider Unavailabl e Encounter Details Date Type Department Care Team (Latest Contact Info) Description 04/11/2021 Abstract [facility] CONVERSIONS Dental, Provider, DDS Social History [...] Description 03/17/2025 3:00 PM EDT Office Visit [facility] [address] [place] [address] Mukund Oliver, DDS [address] [place] [address] 04/30/2025 1:00 PM EST Office Visit [facility] [address] [place], [place] [phone] Susu Aden [address] [place], [place] [phone] documented as of this encounter Visit Diagnoses Not on filedocumented in this encounter
--- OUTSIDE RECORDS SUMMARY | 2025-03-09 18:04 | XMS_ITS | Encounter Summary ---
Author Organization [employer] Address [address]t [place] [address] Care Team Providers Care Stock Feeder Name Role Phone Unavailable Primary Care Provider Unavailabl e Encounter Details Date Type Department Care Team (Latest Contact Info) Description 11/12/2020 Abstract [facility] CONVERSIONS Dental, Provider, DDS Social History [...] 3:00 PM EDT Office Visit [facility] [address] [place] [address] Mukund Oliver, DDS [address] [place] [address] 04/30/2025 1:00 PM EST Office Visit [facility] [address] [place], [place] [phone] Susu Aden [address] [place], [place] [phone] documented as of this encounter Visit Diagnoses Not on filedocumented in this encounter
== END 2025-03-09 14:03 | disposition home or self-care (01) ==
LOC: HO.HMCH 13:02
PROVIDERS: PCP Internal Medicine; Visit Provider Internal Medicine
DX: E78.00 Pure hypercholesterolemia, unspecified (principal); R73.01 Impaired fasting glucose; E66.9 Obesity, unspecified; Z68.35 Body mass index [BMI] 35.0-35.9, adult; J30.9 Allergic rhinitis, unspecified; D72.19 Other eosinophilia; E55.9 Vitamin D deficiency, unspecified; J06.9 Acute upper respiratory infection, unspecified; K21.9 Gastro-esophageal reflux disease without esophagitis; N52.9 Male erectile dysfunction, unspecified; F39 Unspecified mood [affective] disorder

== ENCOUNTER → 2025-03-09 13:01 | Outpatient (BNVA) | payer MEDICARE, MEDICAID, SELFPAY | PROVIDERS: PCP Internal Medicine; Visit Provider Internal Medicine | DX: K21.9 Gastro-esophageal reflux disease without esophagitis (principal); E78.00 Pure hypercholesterolemia, unspecified; R73.01 Impaired fasting glucose; J30.9 Allergic rhinitis, unspecified; D72.19 Other eosinophilia; E55.9 Vitamin D deficiency, unspecified; J06.9 Acute upper respiratory infection, unspecified; N52.9 Male erectile dysfunction, unspecified; J32.0 Chronic maxillary sinusitis; F39 Unspecified mood [affective] disorder; E66.9 Obesity, unspecified | CPT/HCPCS: 99212 ==

== ENCOUNTER 2025-06-09 07:59 | Outpatient (AMB) | payer MEDICARE, MEDICAID, SELFPAY ==
--- OUTSIDE RECORDS SUMMARY | 2024-07-28 04:30 | XMS_ITS ---
Author Organization [facility] Address [address] [place] [phone] Care Team Providers Care Tunnel Form Placing Supervisor Name Role Phone Jason Abraham MD Primary Care Provider rAsenio Frey Unavailable [phone] REASON FOR VISIT with balloon, dysphagia Encounters Encounter Location Date Provider Diagnosis [facility] [place] [address] [place] [id number] 07/28/2024 Arsenio Oreilly Esophageal ring K2 2.2 ; Hiatal hernia K44.9 and Dysphagia R13.10 Assessments Encounter Date Diagnosis (ICD Code) Assessment Notes Treatment Notes Treatment Clinical Notes Section Notes 07/28/2024 Esophageal ring (ICD-10 - K22.2) 07/28/2024 Hiatal hernia (ICD-10 - K44.9) 07/28/2024 Dysphagia (ICD-10 - R13.10) Plan Of Treatment No Information Progress Notes * GARETH HOYOS CDOB:[birth year] (65 yo M)Acc No.[id number]:07/28/2024 EGD/MAC Patient: Joann GARETH CASANOVA Provider: Himanshu Oreilly MD :1960 A ge:64 Y S ex:Male Date:07/28/2024 Address:[address], [place], [place] Pcp:Jason Abraham MD Subjective: * Chief Complaints: * W ith balloon, dysphagia Assessment: * Assessment: 1. E sophageal ring - K22.2 (Primary) 2 . H iatal hernia - K44.9 3 . D ysphagia - R13.10 Plan: * Procedure Codes: 4 3249 ESOPH ENDOSCOPY, DILATION Billing Information: * Procedure Codes: 37703 ESOPH ENDOSCOPY, DILATION. * The named appointment provid er may or may not be the originator of this progress note, and it is not deemed complete until electronically signed by the appointment provider. Sign off status: Pending * Provider: Himanshu Oreilly MD Date: 0 07/28/2024 Generated for Brittany skinner/Omkar/Raniitting on: 08/10/2024 08:08 AM EST
--- OUTSIDE RECORDS SUMMARY | 2025-01-05 06:20 | XMS_ITS ---
Author Organization [facility] Address [address] [place] [phone] Care Team Providers Care Contact Center Specialist Name Role Phone Jarad DELGADO, Jason Primary Care Provider Arsenio Frey Unavailable [phone] REASON FOR VISIT screening Encounters Encounter Location Date Provider Diagnosis [facility] Outpatient [address] [place] [id number] 01/05/2025 Arsenio Oreilly Plan Of Treatment No Information Progress Notes * GARETH HOYOS CDOB:[birth year] (65 yo M)Acc No.[id number]:01/05/2025 COLON WITH MAC Patient: Joann LUNDGLORIA GARETH Segundo Provider: Himanshu Oreilly MD :1960 A ge:64 Y S ex:Male Date:01/05/2025 Address:[address] [place] [address] [address] [address], [facility] Pcp:Jason Abraham MD Subjective: * Chief Complaints: * S creening Billing Information: * Procedure Codes: * The named appointment provid er may or may not be the originator of this progress note, and it is not deemed complete until electronically signed by the appointment provider. Sign off status: Pending * Provider: Himanshu Oreilly MD Date: 0 01/05/2025 Generated for Brittany skinner/Omkar/eTransmitting on: 1 08/10/2024 08:07 AM EST
[2025-06-09 08:02] VITALS: BP 156/90; PULSE 81; TEMP 36.3; O2SAT 95; BMI 37.2
--- NOTE | 2025-06-09 08:02 | AM.OFFWIN_ITS ---
Intake Vital Signs 06/09/25 08:02 Height 5 ft 10 in Weight 259 lb BMI 37.2 BP 156/90 H Blood Pressure Location Rt brachial Position Sitting Pulse 81 Pulse Source Pulse Oximeter Temp 97.4 F Temp Source Oral Pulse Oximetry (%) 95 Oxygen Delivery Method Room Air Intake Visit Reasons: EP ear ache stomach ache Intake Note: Patient presents c/o stomach ache, nasal congestion, right ear ache x few days. Patient states he ate some bad cottage cheese the other day. Patient Tobacco Use Status: Former Tobacco user Allergies Sulfa (Sulfonamide Antibiotics) Adverse Reaction (Severe, Verified 06/09/25 08:07) joint pains, difficulty breathing, dehydration? cefuroxime Adverse Reaction (Intermediate, Verified 06/09/25 08:07) shortness of breath,dehydration clavulanic acid (From AUGMENTIN) Adverse Reaction (Intermediate, Verified 06/09 08:07) diarrhea HPI HPI Comments History of Present Illness Details History - The patient is a 65-year-old male pres enting with abdominal pain, otalgia, and upper respiratory symptoms. - His symptoms began approximately 4-5 d ays ago after he consumed cottage cheese that had been left out at room temperature for about an hour. - He subsequently developed a stomach ac he and an ear ache. - Associated symptoms include a jittery stomach, yellowish-greenish mucus in the mornings, sinus pain, a slight cough with a tickle, and upper respiratory congestion. - He denies nausea, vomiting, diarrhea, or fevers. - The patient has a history of sinusitis , and when he experiences congestion, he notes some difficulty breathing. - His primary care physician has reynold cannon treated him with doxycycline for sinusitis, which he reports has been effective. - He has a prescription for Flonase and generally avoids taking barv-oan-kwrgtdx medications. Review of Systems - Constitutional: Denies fever. - GI: Reports abdominal pain described a s jittery. Denies nausea, vomiting, and diarrhea. - ENT: Reports otalgia, sinus pain, and morning mucus production that is yellowish-greenish. Reports a tickle in the throat. - Respiratory: Reports a slight cough an d some difficulty breathing associated with congestion. Denies shortness of breath. All systems reviewed and are unremarkable except as noted in HPI Physical Exam General: Cooperative, healthy appearing, comfortable and no acute distress Orientation/consciousness: Patient oriented x3 Limitations: No limitations Head: Normal to inspection Ears: Hearing grossly normal bilaterally, external ears normal, EAC's normal bilaterally and TM's normal bilaterally Nose: Normal external nose present, Normal nares present and No nasal discharge present Face and sinus: Normal facial exam and sinuses congested, no tenderness Mouth: Normal oral and palatal mucosa present and moist mucous membranes Throat: tonsils normal, no exudates, uvula midline, posterior oropharynx erythema Eyes: Appearance normal, both eyes and all related structures Neck: Normal visual inspection, full ROM Respiratory: Clear to auscultation bilaterally. Normal respiratory effort, able to speak in complete sentences, mild cough present, no respiratory distress, not tachypneic, no tripod positioning and no use of accessory muscles Cardiovascular: Regular rate and rhythm. Normal S1 and S2 Skin: No rashes or lesions noted Neuro: Patient oriented x3 Extremities: Normal to inspection and Yes no clubbing, cyanosis or edema PFSH Medical History Erectile dysfunction Mood disorder Dyslipidemia Impaired fasting glucose Anxiety and depression OCD (obsessive compulsive disorder) Gastritis and duodenitis Oral thrush Obesity (BMI 30-39.9) Depression Vitamin D deficiency GERD without esophagitis Eosinophilia Allergic rhinitis Pure hypercholesterolemia Surgical History (Reviewed 04/28/25 @ : by Rabia Estrada CMA) History of toe surgery History of esophagogastroduodenoscopy (EGD) History of colonoscopy History of inguinal hernia repair Family History (Reviewed 04/28/25 @ : by Rabia Estrada CMA) Father No problems noted. Mother Diabetes Hypertension Substance abuse Other Mental health problem Social History (Reviewed 04/28/25 @ :00 by Rabia Estrada CMA) Housing: Apartment Are you a primary hospice care consultant to a significant other at home: No Do you presently have visiting nurse or other home services: No Alcohol intake: current Alcohol intake frequency: 0-2 drinks per day Patient Tobacco Use Status: Former Tobacco user e-Cigarette/Vaping Use: Never Used Second Hand Smoke Exposure: No Advance Directives Date on File: 01/05/25 service: No Current occupational status: unemployed Cognitive needs: No Hearing needs: No Vision needs: Yes (glasses) Physical Exam Vital Signs: Last Vital Signs Temp 97.4 F 06/09/25 08:02 Pulse 81 12/16/25 08:02 BP 156/90 H 06/09/25 08:02 Pulse Ox 95 06/09/25 08:02 Oxygen Delivery Method Room Air 06/09/25 08:02 BMI result Body Mass Index 37.2 Assessment & Plan Assessment & Plan (1) Acute sinusitis: Code(s): J01.90 - Acute sinusitis, unspecified Qualifiers: Sinusitis location: unspecified location Recurrence: not specified as recurrent Qualified Code(s): J01.90 - Acute sinusitis, unspecified Plan: Patient was informed and verbally consented to the use of an ambient scribe for clinic note documentation during this visit. - VSS, pt well appearing and PE unremarkable. - The patient presents with symptoms including sinus pain, nasal congestion, and productive mucus consistent with acute sinusitis, which he has a history of. - A nasal swab for COVID-19, influenza, and RSV was collected to rule out a viral etiology for his symptoms. - The patient was advised to use his prescribed Flonase, with instructions provided on proper technique for better efficacy. - A prescription for doxycycline will be sent if the viral panel is negative, as this has been effective for him in the past per his report. - A prescription for a decongestant and antihistamine combination was also offered. - The patient reports a jittery stomachache for 4-5 days, possibly related to food consumption or a systemic viral process, but denies nausea, vomiting, or diarrhea. - Reassurance was provided that the symptoms are likely to resolve on their own. Orders: Orders SARS-CoV2/FLU/RSV Today R09.89 - Other specified symptoms and signs involving the circulatory and respiratory systems Coding Level of Care Code Est Pt Level 3 (71773) Diagnoses Acute sinusitis, recurrence not specified, unspecified location J01.90 Sinusitis location: unspecified location Recurrence: not specified as recurrent
--- OUTSIDE RECORDS SUMMARY | 2025-06-09 08:08 | XMS_ITS | Encounter Summary ---
Author Organization [employer] Address [address] [address] Care Team Providers Care Corporate Director Name Role Phone Unavailable Primary Care Provider Unavailabl e Encounter Details Date Type Department Care Team (Late st Contact Info) Description 04/01/2025 Telephone [facility] [address] [place] [address] Mukund Oliver DDS [address] [place] [address] Social History Tobacco Use Types Packs/Day Years Used Date Smoking Tobacco: Never Smokeless Tobacco: Never Alcohol Use Standard Drinks/Week Comments Yes 0 (1 standard drink = 0.6 oz pur e alcohol) Sex and Gender Information Value Date Recorded Sex Assigned at Male 04/24/2022 10:23 AM EDT Legal Sex Male 10:23 AM EDT Gender Identity Male 04/24/2022 10:23 AM EDT Sexual Orientation Straight 04/24/2022 10 :23 AM EDT documented as of this encounter Miscellaneous Notes * Telephone Encounter - Usha Dickey - 04/01/2025 3:32 PM EDT Pt is calling for a endo appointment but said someone was trying to schedule him in March and he wont be available till April. Pt would like to get a call with a different date. documented in this encounter Plan of Treatment Not on file documented as of this encounter Visit Diagnoses Not on filedocumented in this encounter
--- OUTSIDE RECORDS SUMMARY | 2025-06-09 08:08 | XMS_ITS | Patient Health Record ---
Author Organization [facility] Address [address] [place] [address] Care Team Providers Care Process Server Name Role Phone Jason Abraham MD Primary Care Provider Arsenio Frey [phone] Allergies Allergen (clinical drug ingredient) Drug/Non Drug Allergy documented on EMR Reaction Allergy Type Onset Date Status amoxicillin / clavulanate Augmentin Unknown Drug Allergy Active sulfamethoxazole / trimethoprim Bactrim Unknown Drug Allergy Active Results Component Value Reference Range Notes CT colonography Reviewed date:01/07/2025 12:40:53 AM Interpretation: Performing Lab: Notes/Report: [address] [address] [address] Scan Report Signed Patient: Gareth Judge MR#: [id number] : 1960 Acct:[id number] Age/Sex: 64 / M ADM Date: 01/05/25 Loc: .[facility] Attending Dr: Arsenio Oreilly MD Ordering Physician: Arsenio Oreilly MD Date of Service: 01/05/25 Procedure(s): CT colonography Accession Number(s): [id number] cc: Jason Abraham MD; Arsenio Oreilly MD Report Number: [id number]: Total DLP = 631.00 mGy-cm CLINICAL HISTORY: [...] in OV> 01/05/251719 DD/ 19 TD/TT: 01/05/251719 Engraver Set Up Operator: Reason For Referral No Information Medications Medication SIG (Take, Route, Frequency, Duration) Notes Start Date End Date Status MiraLax (colon prep) 17 GM/SCOOP Powder 1 238Gm bottle mixed with Gatorade or Crystal Light orally begin at 5:00 p.m. the day before the procedure; Duration: 1 days 10/17/2024 Active buPROPion HCl ER (XL) 300 MG Tablet Extended Release 24 Hour 1 tablet in the morning Orally Once a day; Duration: 30 day(s) Active Dulcolax (colon prep) 5 MG Tablet Delayed Release take at 3:00 p.m and 7:00p.m. Orally two tablets twice a day for one day; Duration: 1 days 10/17/2024 Active ZyPREXA 10 MG Tablet 1 tablet Orally Onc e a day Active Atorvastatin Calcium 10 MG Tablet 1 tablet Orally Once a day; Duration: 30 day(s) Active Citalopram Hydrobromide 40 MG Tablet 1.5 tablet Orally Once a day Active Famotidine 40 MG Tablet 1 tablet Oral Twice a day Active Immunizations Vaccine Route Administration Date Status Comme nts Influenza Unknown 04/17/2019 Administered Influenza Unknown 03/18/2024 Administered Social History Social History Additional Details Category Social Info Options Details Miscellaneous: Marital status: Occupation: Disabled from de pression Section Notes: Nonsmoker; no sig alcohol Nonsmoker; no sig alcohol Nonsmoker; no sig alcohol Nonsmoker; no sig alcohol Problems Problem Type SNOMED Code ICD Code Onset Dates Problem Status W/U Status Risk Notes Problem Screening for malignant neoplasm of colon (448510357) Encounter for screening for malignant neoplasm of colon (Z12.11) Active confirmed Problem Dysphagia (33451216) Dysphagia (R13.10) Active confirmed Problem Esophageal ring (44905415) Esophageal ring (K22.2) Active confirmed Problem Esophageal dysphagia (31627697) Esophageal dysphagia (R13.10) Active confirmed Vital Signs Temperature 98.4 degrees Fahrenheit 07/09/2024 Blood pressure diastolic 00 mm Hg 07/09/2024 Height 70 in 07/09/2024 Blood pressure systolic 000 mm Hg 07/09/2024 Weight 225 lbs 07/09/2024 BMI 32.28 kg/m2 07/09/2024 Procedures Procedure Date Ordered Date Performed Result Body Sit e COLONOSCOPY 08/03/2024 N/A Encounters Encounter Location Date Provider Diagnosis [facility] [address] [place] [id number] 07/28/2024 Arsenio Oreilly Esophageal ring K22.2 ; Hiatal hernia K44.9 and Dysphagia R13.10 [facility] [address] [place], [place] [id number] 01/05/2025 Arsenio Oreilly [facility] [address] [place] [phone] 07/09/2024 Arsenio Oreilly Dysphagia R13.10 and Encounter for screening for malignant neoplasm of colon Z12.11 [facility] [address] [place] [phone] 06/10/2024 Arsenio Oreilly [facility] [address] [place] [phone] 07/24/2024 Arsenio Oreilly [facility] [address] [place] [phone] 08/03/2024 Arsenio Oreilly Colon cancer screening Z12.11 [facility] [address] [place] [phone] 01/06/2025 Arsenio Oreilly [facility] [address] [place] [phone] 01/06/2025 Arsenio Oreilly Assessments Encounter Date Diagnosis [...] urgency for a colonoscopy at this time. Gareht was very comfortable with this plan. Thank [...] Start Date Coverage End Date MEDICARE OF [place] [address] [place] [phone] [id number] GARETH JUDGE Self - patient is the insured MEDICAID OF [facility] [address] [place] [address] [id number] ROMAINGARETH Self - patient is the insured Medical (General) History Medical History History ICD Code Denies MO,DM,CVA,Lung disease,renal dise ase GERD Gallstone seen on [...]
--- OUTSIDE RECORDS SUMMARY | 2025-06-09 08:08 | XMS_ITS | Encounter Summary ---
Author Organization [employer] Address [address] [facility] [address]t [place] [address] Care Team Providers Care Electronic Warfare Technical Name Role Phone Unavailable Primary Care Provider Unavailabl e Encounter Details Date Type Department Care Team (Latest Contact Info) Description 11/12/[address] [facility] CONVERSIONS Dental, Provider, DDS Social History Tobacco Use Types Packs/Day Years Used Date Smoking Tobacco: Never Assessed Sex and Gender Information Value Date Recorded Sex Assigned at Male 04/24/2022 10:23 AM EDT Legal Sex Male 10:23 AM EDT Gender Identity Male 04/24/2022 10:23 AM EDT Sexual Orientation Straight 04/24/2022 10 :23 AM EDT documented as of this encounter Plan of Treatment Not on file documented as of this encounter Visit Diagnoses Not on filedocumented in this encounter
--- OUTSIDE RECORDS SUMMARY | 2025-06-09 08:08 | XMS_ITS | Clinical Summary ---
Author Organization [employer] Address [address] [facility] [address] [place] [address] Care Team Providers Care Screen Printing Paster Name Role Phone Unavailable Primary Care Provider [...] Active Active Problems No known active problems Encounters Date Type Department Care Team Description 05/25/2025 10:00 AM EST Office Visit [facility] [address] [place] [address] Mukund Oliver, DDS 05/08/2025 Telephone [facility] [address] [place] [address] Anthony Oliveripe, DDS 05/06/2025 Telephone [facility] [address] [place] [address] Anthony Oliveripe, DDS 04/30/2025 1:00 PM EST Office Visit [facility] [address] [place] [address] Susu Aden 04/01/2025 Telephone [facility] [address] [place] [address] Anthony Oliveripe, DDS 03/31/2025 3:00 PM EDT Office Visit [facility] [address] [place] [address] Anthony Oliveripe, DDS 03/17/2025 3:00 PM EDT Office Visit [facility] [address] [place] [address] Anthony Oliveripe, DDS from Last 3 Months Social History [...] Sign Reading Time Taken Comments Blood Pressure 156/90 05/25/2025 10:05 AM EST Pulse 91 10/23/2024 1:11 PM EDT Temperature - - Respiratory Rate - - Oxygen Saturation - - Inhaled Oxygen Concentration - - Weight - - Height - - Body Mass Index - - Plan of Treatment Health Maintenance Due Date Last Done Comments CT Colonography 1960 Colonoscopy 1959 Colorectal Cancer Screening 1959 Dental X-Ray: Full Mouth 1959 Depression Screening 1959 FIT DNA/Cologuard 1959 FIT 1959 FOBT 1959 Lipid Panel 1959 SDOH Screening 1959 Sigmoidoscopy 1959 Alcohol/Substance Use Screening 1971 Hepatitis C Screening 1977 Zoster Vaccines (1 of 2) 2009 COVID-19 Vaccine ( season) 2025 04/17/2025, 03/23/2024, 04/18/2023, Additional history exists Dental X-Ray: Bitewings 10/24/2025 10/24/19, 09/21/2023, 05/29/2023, Additional history exists Dental Oral Exam 10/29/2025 04/30/2025, 07/06/2022 Dental Prophylaxis 10/29/2025 04/30/2025, 0 10/23/2024, 04/10/2024, Additional history exists Tobacco Screening 05/25/2026 05/25/2025 DTaP/Tdap/Td Vaccines (2 - Td or Tdap) 03/28/2029 03/28/2019, 10/07/2003 Hepatitis B Vaccines Completed 04/13/2004, 11/11/2003, 10/07/2003 RSV Patients and Patients Aged 60 years or older Completed 04/18/2023 Influenza Vaccine Completed 04/17/2025, , 04/18/2023, Additional history exists Pneumococcal Vaccine: 50+ Years Completed 04/17/2025, 03/29/2022, 03/17/2021 HIB Vaccines Aged Out No longer eligi [...] Procedure Name Priority Date/Time Associated Diagnosis Comments CASE PRESENTATION, DETAILED AND EXTENSIVE TREATMENT PLANNING Routine 05/25/2025 10:00 AM EST CONSULTATION - DIAGNOSTIC SERVICE PROVIDED BY DENTIST OR PHYSICIAN OTHER THAN REQUESTING DENTIST OR PHYSICIAN Routine 05/25/2025 10:00 AM EST COMPREHENSIVE PERIODONTAL EVALUATION - NEW OR ESTABLISHED PATIENT Routine 04/30/2025 1:00 PM EST PERIODIC ORAL EVALUATION - ESTABLISHED PATIENT Routine 04/30/2025 1:00 PM EST CASE PRESENTATION, DETAILED AND EXTENSIVE TREATMENT PLANNING Routine 04/30/2025 1:00 PM EST PROPHYLAXIS - ADULT Routine 04/30/2025 1 :00 PM EST 10,11 INTRAORAL - PERIAPICAL EACH ADDITIONAL RADIOGRAPHIC IMAGE Routine 03/31/2025 3:00 PM EDT 8,9 INTRAORAL - PERIAPICAL EACH ADDITIONAL RADIOGRAPHIC IMAGE Routine 03/31/2025 3:00 PM EDT 6,7 INTRAORAL - PERIAPICAL FIRST RADIOGRAPHIC IMAGE Routine 03/31/2025 3:00 PM EDT RE-EVAL - POST-OP OFFICE VISIT Routine 03/31/2025 3:00 PM EDT CASE PRESENTATION, DETAILED AND EXTENSIVE TREATMENT PLANNING Routine 03/17/2025 3:00 PM EDT 11,12 INTRAORAL - PERIAPICAL FIRST RADIOGRAPHIC IMAGE Routine 03/17/2025 3:00 PM EDT LIMITED ORAL EVALUATION - PROBLEM FOCUSED Routine 03/17/2025 3:00 PM EDT BITEWINGS - 4 RADIOGRAPHIC IMAGES Routine 10/23/2024 1:00 PM EDT from Last 3 Months or Most Recently Relevant to Health Maintenance Insurance [address] [place] [id number] [facility] [address] [address] [id number] [id number] [id number]
--- OUTSIDE RECORDS SUMMARY | 2025-06-09 08:08 | XMS_ITS | Encounter Summary ---
Author Organization [employer] Address [address] [facility] [address] [place] [address] Care Team Providers Care Turn Out Name Role Phone Unavailable Primary Care Provider Unavailabl e Encounter Details Date Type Department Care Team (Latest Contact Info) Description 04/11/[address] [facility] CONVERSIONS Dental, Provider, DDS Social History [...]
--- OUTSIDE RECORDS SUMMARY | 2025-06-09 08:08 | XMS_ITS | Encounter Summary ---
Author Organization [employer] Address [address] [facility] [address] [place] [address] Care Team Providers Care Bi Developer Name Role Phone Unavailable Primary Care Provider Unavailabl e Encounter Details Date Type Department Care Team (Latest Contact Info) Description 10/08/2018 Abstract [facility] CONVERSIONS Dental, Provider, DDS Social [...]
== END 2025-06-09 08:42 | disposition home or self-care (01) ==
PROVIDERS: PCP Internal Medicine; Visit Provider Physician Assistant
DX: J01.90 Acute sinusitis, unspecified (principal)

== ENCOUNTER 2025-06-09 07:59 | Outpatient (REF) | payer MEDICARE, MEDICAID, SELFPAY ==
[2025-06-09 13:06] LABS: Resp Syncy Virus RNA Qual PCR NEGATIVE (Negative); SARS COV2 PCR INHOUSE NEGATIVE (Negative)
== END 2025-06-09 08:00 | disposition home or self-care (01) ==
LOC: HO.LAB 07:59
PROVIDERS: Physician Assistant; PCP Internal Medicine
DX: Z03.818 Encounter for observation for suspected exposure to other biological agents ruled out (principal)
CPT/HCPCS: 87637; 99212